=== PATIENT | female | born 1985 | race Caucasian/White ===

== ENCOUNTER 2018-09-02 09:37 | Emergency (ER) | payer MEDICAID, SELFPAY ==
[2018-09-02 09:44] VITALS: BP 111/67; PULSE 89; RESP 18; TEMP 36.8; O2SAT 99
--- NOTE | 2018-09-02 10:17 | DI.RAD_ITS ---
SYMPTOMS/DIAGNOSIS: S/P TWISTING LT KNEE, ? FRACTURE/EFFUSION LEFT KNEE: No soft tissue, bony or joint abnormality is seen.
--- NOTE | 2018-09-02 10:18 | ED.GENADUL_ITS ---
Discharge Plan Disposition Patient Disposition: HOME Condition: Stable Discharge Details Chief Complaint: Orthopedic Clinical Impression: Left knee sprain Primary Care Provider: Kita Clark ED Provider: Layne Aguilar Home Meds and New Rx's Prescriptions: Continue topiramate [Topamax] 50 MG tablet 50 mg PO BID RF: 0 multivit with min-folic acid [Women's Multivitamin Gummies] 200 MCG tablet, chewable 1 tab PO DAILY RF: 0 acetaminophen [Acetaminophen Extra Strength] 500 MG tablet 1,000 mg PO TID PRN PRNQty: 180 RF: 0 diazepam 5 MG tablet 5 mg PO TID PRN PRNQty: 20 RF: 0 [id number]-xbdyienmc-Jh-mag-sim 119 ML mouthwash 10 ml Mucous Membrane Q6H PRN PRN (Reason: Pain) Qty: 1 RF: 0 albuterol sulfate [ProAir HFA] 8.5 GM HFA aerosol inhaler 2 puff Inhalation Q6H PRN PRNRF: 0 Discharge Instructions Instructions: Knee Sprain (ED) Additional Instructions: Rest, ice, elevate left lower extremity is much as possible. Continue to alternate Tylenol and Motrin as needed and directed for pain. Follow-up with your scheduled appointment with Dr. Ye next week. Return to the emergency department any worsening or new concerning symptoms. Discharge Data Discharge Physician: Layne Aguilar Medical Decision Making 33-year-old female presents with left knee pain times 1 week after twisting it while walking down a few stairs. Denies direct trauma to knee. Denies hip pain. Has been ambulating but with pain. Vitals within normal limits. Patient appears nontoxic and in no acute distress. Pain with range of motion of knee, but no ligamentous instability, evidence of trauma or infection. Neurovascular intact. Left DP/PT pulses intact. No pain with range of motion at left hip. Differential diagnosis includes left knee sprain, effusion, fracture. Patient states she has an appoint with Dr. Ye on September 11 for this complaint. She states she discussed with him and he recommended to come to the ER for an x- ray if she desired earlier evaluation. Patient declines pain medication here. She is agreeable to a left knee x-ray. 1110: X-ray reviewed with radiologist and no acute findings. Patient requests Calvin wrap here. She was instructed to rest, ice, elevate and apply ice. She was informed that it is not unusual to have continued pain with a sprain due to inability to rest is still ambulating and weightbearing on left lower extremity. It was discussed that if her pain persists or worsens, she may be referred for physical therapy or an MRI of her knee. She is instructed to follow-up with her scheduled appointment with Dr. Ye next week and return here if worse. HPI General Mode of arrival: ambulatory . Date/Time Provider Initiated Documentation: 09/02/18 10:04 . Limitations to Documentation: no limitations . Information obtained by: patient . HPI Narrative: Patient is a 33 year old female presents with left knee pain for the past week after twisted knee and bent sideways when she had a mechanical fall down a few stairs 1 week ago. Patient admits to pain in the whole left knee. She has been weightbearing but with pain. She has been alternating Tylenol Motrin and applying ice. She denies any hip pain. Past medical history: Migraine Surgical history: Tubal ligation Social history: Smokes tobacco, occasional alcohol, denies drugs Medications: See list Allergies: Penicillin, hydrocodone PCP: Dr. Clark LMP: 08/10/18, denies known - h/o tubal ligation Related Data Home Medications Medication Instructions Recorded Confirmed albuterol sulfate [ProAir HFA] 2 puff INHALATION Q6H PRN PRN 09/30/16 12/23/17 topiramate [Topamax] 50 mg PO BID 12/03/16 12/23/17 multivit with min-folic acid 1 tab PO DAILY 02/05/17 12/23/17 [Women's Multivitamin Gummies] acetaminophen [Acetaminophen Extra 1,000 mg PO TID PRN PRN #180 tablet 02/13/17 12/23/17 Strength] diazepam 5 mg PO TID PRN PRN #20 tablet 02/13/17 12/23/17 kyrpnaspg-fndugafxe-Vf-mag-sim 10 ml MUCOUS MEMBRANE Q6H PRN PRN 12/23/17 #1 btl Previous Rx's Medication Instructions Recorded acetaminophen [Acetaminophen Extra 1,000 mg PO TID PRN PRN #180 tablet 02/13/17 Strength] diazepam 5 mg PO TID PRN PRN #20 tablet 02/13/17 vjtovjnuw-iwwtehmhf-Wu-mag-sim 10 ml MUCOUS MEMBRANE Q6H PRN PRN 12/23/17 #1 btl Allergies Allergy/AdvReac Type Severity Reaction Status Date / Time amoxicillin [Amoxicillin] Allergy Severe facial Unverified 12/23/17 12:24 swelling hydrocodone bitartrate AdvReac Severe Nausea, Unverified 12/23/17 12:24 [From Vicodin] vomiting General Stated Complaint: Orthopedic WADE: 4 Review of Systems Review of Systems All systems reviewed & are unremarkable except as noted in HPI and below PFSH Social History Smoking/Tobacco Use Status: Current every day Surgical History Ligation of fallopian tube Exam Const General: cooperative, healthy appearing and no acute distress HENMT Head: normal to inspection Mouth: oral mucosae normal Eyes General: appearance normal, both eyes and all related structures Neck Neck: normal visual inspection Resp Effort & Inspection: normal respiratory effort and able to speak in complete sentences Cardio Rate: regular rate Skin General skin exam: no rashes or lesions noted Neuro General: alert, awake and oriented x3 Motor: muscle tone normal throughout Extrem General: normal to inspection and full ROM Left lower extremity: hip/thigh (No pain with range of motion. No tenderness palpation.) and knee (Pain with range of motion. There is no edema, ecchymosis , erythema. No pain with valgus or varus stress. Negative anterior posterior drawer test. Negative Shamir's test. ) Details: no crepitus, no deformity and no unusual warmth Psych Appearance: grossly normal Affect: normal affect Course Vital Signs Temperature 98.2 F 09/02/18 09:44 Pulse 89 09/02/18 09:44 Respiratory Rate 18 09/02/18 09:44 Blood Pressure 111/67 09/02/18 09:44 Pulse Oximetry 99 09/02/18 09:44 Temperature 98.2 F 09/02/18 09:44 Pulse 89 09/02/18 09:44 Respiratory Rate 18 09/02/18 09:44 Respiratory Effort 09/02/18 09:47 Blood Pressure 111/67 09/02/18 09:44 Blood Pressure Position Sitting 09/02/18 09:44 Pulse Oximetry 99 09/02/18 09:44 Oxygen Delivery Method Room Air 09/02/18 09:44 Oxygen Flow Rate 0 09/02/18 09:44 Pain Level 8 09/02/18 09:47
[2018-09-02 11:34] VITALS: BP 112/80; PULSE 80; RESP 18; TEMP 36.8; O2SAT 99
--- NOTE | 2018-09-02 19:09 | NUR.NOTE ---
pt declined to have elder wrap placed by nurse- instructed on use and sent home with patient per Lorenzo Downing RN. Nursing Note:
== END 2018-09-02 11:35 | disposition home or self-care (01) ==
PROVIDERS: Emergency Provider Physician Assistant; PCP Family Medicine
DX: S83.92XA Sprain of unspecified site of left knee, initial encounter (principal); W10.8XXA Fall (on) (from) other stairs and steps, initial encounter
CPT/HCPCS: 99283; 73564; 99282

== ENCOUNTER 2018-10-05 10:01 | Outpatient (CLI) | payer MEDICAID, SELFPAY ==
--- NOTE | 2018-10-05 09:33 | DI.RAD_ITS ---
SYMPTOM/DIAGNOSIS: LT DEEP PATELLA PAIN MERCHANT VIEWS BOTH KNEES: Comparison is made with left knee dated 02 Sep 2018 which included Merchant view. Patella femoral joint spaces are well maintained bilaterally. The patella appear normally aligned bilaterally.
== END 2018-10-05 10:21 ==
PROVIDERS: PCP Family Medicine; Visit Provider Student in an Organized Health Care Education/Training Program
DX: M25.562 Pain in left knee (principal)
CPT/HCPCS: 73565

== ENCOUNTER 2019-02-26 01:31 | Outpatient (CLI) | payer MEDICAID, SELFPAY ==
--- NOTE | 2019-02-26 11:41 | DI.MRI_ITS ---
SYMPTOMS/DIAGNOSIS: LEFT INTERNAL DERANGEMENT, M25.92, PAIN X 1 YEAR, CLICKS LEFT KNEE MRI: MRI examination of the knee was performed according to the usual protocol. There is abnormal signal in the central portion of the distal femur consistent with a bony trabecular injury. There is abnormal signal in the anterior cruciate ligament; however, there appears to be continuity of multiple intact fibers throughout the ligament. The posterior cruciate appears normal. The menisci appear intact. Extensor mechanism appears intact. No significant collateral ligament injury is seen. CONCLUSION: Abnormal signal in anterior cruciate ligament without evidence of a complete tear. The findings may represent a partial tear or strain of the ligament. There is associated abnormal signal in the central portion of the distal femur.
== END 2019-02-26 01:51 ==
PROVIDERS: PCP Family Medicine; Visit Provider Student in an Organized Health Care Education/Training Program
DX: M25.562 Pain in left knee (principal); M23.92 Unspecified internal derangement of left knee; S83.512A Sprain of anterior cruciate ligament of left knee, initial encounter
CPT/HCPCS: 73721

== ENCOUNTER 2019-06-14 15:22 | Outpatient (CLI) | payer MEDICAID, SELFPAY ==
--- NOTE | 2019-06-14 15:01 | DI.RAD_ITS ---
SYMPTOMS/DIAGNOSIS: LEFT KNEE PAIN LEFT KNEE: Three views were obtained. No bony abnormality seen.
== END 2019-06-14 15:42 ==
PROVIDERS: PCP Family Medicine; Visit Provider Student in an Organized Health Care Education/Training Program
DX: M25.562 Pain in left knee (principal)
CPT/HCPCS: 73562

== ENCOUNTER 2019-06-18 07:51 | Outpatient (CLI) | payer MEDICAID, SELFPAY ==
--- NOTE | 2019-06-18 09:52 | DI.NM_ITS ---
SYMPTOMS/DIAGNOSIS: PERSISTENT DEEP KNEE PAIN, UNSPECIFIED INJURY, UNSPECIFIED DISORDER OF BONE, M25.562, T14.90XA, M89.9 THREE-PHASE BONE SCAN: The patient received 24.3 mCi of technetium 99m MDP and whole body imaging was performed. Comparison MRI is 02/26/19, comparison x-ray is 06/14/19. There is normal radiotracer uptake in the kidneys and urinary bladder. No significant abnormal uptake is seen in the axial or appendicular skeleton. There is normal and symmetric radiotracer uptake on the all three phases in the knees bilaterally. IMPRESSION: Negative examination.
== END 2019-06-18 08:11 ==
PROVIDERS: PCP Family Medicine; Visit Provider Student in an Organized Health Care Education/Training Program
DX: M25.562 Pain in left knee (principal); M89.9 Disorder of bone, unspecified; T14.90XA Injury, unspecified, initial encounter
CPT/HCPCS: 78315

== ENCOUNTER 2019-07-05 11:25 | Outpatient (REF) | payer MEDICAID, SELFPAY ==
--- NOTE | 2019-07-05 10:45 | PAPFT_PTH ---
PATIENT: Arron Chester LOC: [facility] U#:[id number] AGE/SX: 34/F ROOM: RE07/05/[address]: Kita Clark : 1985 BED: DIS: 07/05/2019 SPEC #: [id number] RECD: 07/05/19 18:27 STATUS: KEVIN REQ #: [id number] DANTE: 07/05/19 10:[address]: Kita Clark DEPT: [facility] Cytology RECD BY: Fariha Valdivia Tissues: 1 - CX/ENDOCX FOR PAP SMEARS Procedures: PAP THIN PREP/UVM Screening HPV DNA PROBE Comments: [id number] (CHLAMYDIA/GC)
[2019-07-06 12:59] LABS: Chlamydia Result Negative; GC Result Negative; Specimen Description SEE COMMENTS
== END 2019-07-05 11:45 ==
LOC: NCHCN 11:25
PROVIDERS: PCP Family Medicine; Visit Provider Family Medicine
DX: Z12.4 Encounter for screening for malignant neoplasm of cervix (principal); Z11.51 Encounter for screening for human papillomavirus (HPV); Z11.3 Encounter for screening for infections with a predominantly sexual mode of transmission
CPT/HCPCS: 87491; 87591; 88142; 87624

== ENCOUNTER 2020-08-07 01:31 | Outpatient (CLI) | payer MEDICAID, SELFPAY ==
[2020-08-08 20:30] LABS: COVID-19 RT-PCR Result NEGATIVE (Negative)
== END 2020-08-07 01:51 ==
PROVIDERS: PCP Family Medicine; Visit Provider Podiatrist
DX: Z11.59 Encounter for screening for other viral diseases (principal); Z01.818 Encounter for other preprocedural examination
CPT/HCPCS: U0003

== ENCOUNTER 2020-08-11 07:26 | Day surgery (SDC) | payer MEDICAID, SELFPAY ==
--- NOTE | 2020-08-11 07:12 | HPE_ITS ---
Date of service: 08/11/20 Time of Service: 07:12 History of Present Illness History of Present Illness Chief Complaint: Symptomatic right bunionette deformity Narrative: 35-year-old female with bilateral bunionette deformities right greater than left causing discomfort in shoe gear interfering with daily activities. Nonoperative treatments have failed to provide sufficient relief of symptoms. She is opting for surgical intervention. [facility] Surgical History History of tonsillectomy and adenoidectomy Ligation of fallopian tube Social History Smoking/Tobacco Use Status: Current every day Alcohol Intake: never Drug use: Never Substance use type: does not use Do you feel safe at home: Yes Do you feel safe in your relationship?: Yes Meds Home Medications and Allergies Home Medications Medication Instructions Recorded Confirmed Type topiramate [Topamax] 50 mg PO BID 12/03/16 08/10/20 History Women's Multivitamin Gummies 1 tab PO DAILY 02/05/17 08/10/20 History acetaminophen [Acetaminophen Extra 1,000 mg PO TID PRN PRN #180 tab 02/13/17 08/10/20 Rx Strength] Allergies Allergy/AdvReac Type Severity Reaction Status Date / Time amoxicillin [Amoxicillin] Allergy Severe facial Verified 08/10/20 11:52 swelling cefuroxime [From Ceftin] Allergy Unknown Unverified 08/10/20 13:56 hydrocodone bitartrate AdvReac Severe Nausea, Verified 08/10/20 11:52 [From Vicodin] vomiting Exam Narrative Exam Narrative: Head is normocephalic Eyes PERRLA Hearing adequate Uvula was midline airway looks assessable Heart had regular rate and rhythm I detected no gallops rubs or murmurs Lung méndez were clear Abdomen was nontender bowel sounds appreciated Peripheral pulses are palpable at the ankle 2 out of 4 capillary fill is under 3 seconds to all toes no edema Skin is grossly intact Muscle groups 5 out of 5 bilaterally Skeletal exam is remarkable for bilateral bunionette deformities with overlying bursitis. There is tenderness to direct palpation over the fifth MPJ right greater than left. Medial rotation of the fifth toe is appreciated with lateral protuberance of the fifth metatarsal head. Neurologically grossly intact no deficits appreciated Impression: Bunionette deformity right fifth MPJ with overlying bursitis Imp: Denzel's been brought to the OR for surgical repair right bunionette deformity. Potential risk and complications of surgery have been discussed including the potential for pain, scarring, infection, recurrence of deformity and/or bursitis potentially requiring revisional procedures. All questions have been answered. Informed consents been obtained no promises made to final outcome of surgery. COVID-19 Screening Have you,or household,traveled outside [place] in last 14 days?: Yes Had IN PERSON contact w/suspected or confirmed C-19 person: No
[2020-08-11 07:30] VITALS: BP 120/82; PULSE 81; RESP 16; TEMP 37; O2SAT 100
[2020-08-11] MEDS: Lactated Ringers 1,000 ML 80 ML IV (08:00)
[2020-08-11] MEDS: CLINDAMYCIN 600 MG/50 ML BAG 100 MG IVPB (09:14)
[2020-08-11] MEDS: Bupivacaine 0.5% Pres-Free 30 ML VIAL (09:29)
[2020-08-11] MEDS: Lidocaine 1% Pres-Free 5 ML VIAL (09:30)
[2020-08-11] MEDS: Dexamethasone 4 MG/ML VIAL (09:42)
--- NOTE | 2020-08-11 10:02 | PDOC.DSDIS_ITS ---
Discharge Plan Disposition Patient Disposition: HOME Condition: Good Discharge Details Reason For Visit: correction right bunionette deformity Attending Provider: Colt Flores Primary Care Provider: Kita Clark Home Meds and New Rx's Prescriptions: New hydrocodone-acetaminophen [[place]] 5-325 mg tablet 1 tab PO Q6H PRN (Reason: post op pain) Qty: 7 RF: 0 ibuprofen 600 mg tablet 600 mg PO Q6H PRN (Reason: post op pain and inflamation) Qty: 60 RF: 0 Continued topiramate [Topamax] 50 MG tablet 50 mg PO BID RF: 0 Women's Multivitamin Gummies 200 MCG tablet,chewable 1 tab PO DAILY RF: 0 acetaminophen [Acetaminophen Extra Strength] 500 MG tablet 1,000 mg PO TID PRN PRNQty: 180 RF: 0 Discharge Instructions Activity:: Elevate Remove Dressings/Wound Care:: Do Not Remove Shower/Bathe:: Cover Diet:: Normal Diet Discharge Orders Discharge Orders: Discharge Order (Routine); Ordered 08/11/20 Ordered By: Colt Flores DS: Diagnosis Discharge Diagnosis (1) Ectors mary, right: Status: Acute
--- NOTE | 2020-08-11 10:07 | ROE_ITS ---
Date of service: 08/11/20 Time of Service: 10:07 Operative Note Operative Note DATE OF PROCEDURE: 08/11/20 PRE-OP DIAGNOSIS: Bunionette deformity right foot POST-OP DIAGNOSIS: same PROCEDURE: Partial right fifth metatarsal head resection ANESTHESIA: MAC ESTIMATED BLOOD LOSS: 1 PATHOLOGY: none sent TOURNIQUET TIME: 24 COMPLICATIONS: None Patient was transported to: same day Patient's condition: stable Procedure Description: Denzel was brought to the operative suite placed in the supine position with the right foot was prepped and draped in the usual sterile podiatric fashion. Timeout was performed by protocol. Anesthesia was achieved through IV general and local block of the right fifth ray consisting of 10 cc 50-50 mixture 1% lidocaine plain, 0.5% Marcaine plain. The right foot was exsanguinated well-padded ankle tourniquet inflated 250 mmHg. Attention was directed to the dorsal lateral aspect of the right fifth MPJ where a 3 cm incision was placed lateral parallel to the extensor tendon the incision was deepened in controlled depth fashion hemostasis acquired with electrocautery as needed. Dissection was carried down to the joint capsule. The soft tissue swelling at this level appeared to be a ganglionic mass as opposed to a bursal sac this was removed upon opening of the joint capsule clear gelatinous material consistent with ganglion was appreciated. The fifth metatarsal head was delivered into the wound. Hypertrophy along the lateral aspect of the joint was appreciated with medial rotation of the fifth digit at the MPJ level. With os teotome and mallet the lateral hyperostosis was resected from the fifth metatarsal head from the level of the lateral aspect of the base of the proximal phalanx the joint capsule was repaired with simple interrupted suture 3-0 Vicryl subcutaneous layer repaired with simple interrupted suture of 4-0 Vicryl and the skin was coapted with continuous running suture of 4-0 Monocryl. 4 mg dexamethasone phosphate was infused about the wound. Mastisol half-inch Steri- Strips Xeroform gauze fluff compression dressings were applied. Tourniquet was released with vascularity returning immediately to all toes. Denzel left the OR with sharp and sponge counts correct vital signs stable vascular status intact to be followed by myself next week.
[2020-08-11 10:30] VITALS: BP 128/91; PULSE 83; TEMP 36.1; O2SAT 100
== END 2020-08-11 10:44 | disposition home or self-care (01) ==
PROVIDERS: PCP Family Medicine; Visit Provider Podiatrist
PROC: (CPT 28292; principal; 2020-08-11 09:00)
DX: M21.621 Bunionette of right foot (principal)
CPT/HCPCS: 28110; 99236; E0114; J1100; J1885; J2001; J2704

== ENCOUNTER 2021-01-17 09:17 | Outpatient (REF) | payer MEDICAID, SELFPAY ==
[2021-01-17 15:54] LABS: Bilirubin Negative (Negative); Blood Trace-intact (Negative); Clarity Cloudy (Clear); Glucose Negative (Negative); Ketones Negative (Negative); Leukocyte Esterase Trace (Negative); Nitrite Positive (Negative); Specific Gravity 1.025 (1.005-1.025); Urobilinogen 0.2 EU/dL (Up TO 0.2)
[2021-01-17 16:04] LABS: Bacteria Many HPF (Negative); C & S Indicated? Yes; Casts Negative LPF (Negative); Crystals Negative HPF (Negative); Epithelial Cells Rare HPF (Negative); Mucus Negative (Negative); Other Cells Negative (Negative); RBC 0-2 HPF (0-2)
== END 2021-01-17 09:18 | disposition home or self-care (01) ==
LOC: NCHCN 09:17
PROVIDERS: PCP Family Medicine; Visit Provider Family Medicine
DX: N39.0 Urinary tract infection, site not specified (principal); R30.0 Dysuria
CPT/HCPCS: 87077; 81003; 81015; 87086; 87186

== ENCOUNTER 2021-04-05 17:08 | Emergency (ER) | payer MEDICAID, SELFPAY ==
[2021-04-05 17:19] VITALS: BP 156/111; PULSE 85; TEMP 37.3; O2SAT 100
[2021-04-05 17:30] LABS: Clarity Cloudy (Clear)
[2021-04-05 17:33] LABS: Specific Gravity 1.018 (1.005-1.025)
[2021-04-05 17:38] LABS: Bacteria Moderate HPF (Negative); C & S Indicated? Yes; Casts Negative LPF (Negative); Crystals Negative HPF (Negative); Epithelial Cells Few HPF (Negative); Mucus Negative (Negative)
[2021-04-05 17:41] LABS: Abs Immature Grans 0.03 10^3/uL (0.0-0.06); Absolute Basophil Count 0.03 10^3/uL (0.0-0.2); Absolute Eosinophil Count 0.06 10^3/uL (0.0-0.7); Absolute Monocyte Count 0.39 10^3/uL (0.1-0.8); Absolute Neutrophil Count 7.51 10^3/uL (1.2-6.7); Basophils % 0.3; Eosinophils % 0.6; HCT 41.3 % (36.0-46.0); HGB 13.7 g/dL (11.2-15.7); Immature Grans % 0.3; MCH 29.8 pg (27.0-33.0); MCHC 33.2 % (32.0-36.0); Monocytes % 3.9; Neutrophils % 74.9; Nucleated RBC 0 %; Platelet Count 362 10^3/uL (130-400); RBC 4.59 10^6/uL (3.93-5.22); RDW 12.5 % (11.7-14.6); RDW-SD 40.7 fL; WBC 10.02 10^3/uL (4.4-10.8)
[2021-04-05] MEDS: Normal Saline 1,000 ML 1000 ML IV (17:55)
[2021-04-05] MEDS: Ondansetron 4 MG/2 ML VIAL IVP (17:56)
[2021-04-05] MEDS: Ketorolac 30 MG/ML VIAL IVP (17:56)
[2021-04-05 18:43] LABS: ALT 22 U/L (14-59); AST 10 U/L (15-37); Alkaline Phosphatase 67 U/L (46-116); Anion Gap 9.4 mmol/L (3-11); BUN 9 mg/dL (7-18); Bilirubin, Total 0.5 mg/dL (0.2-1.0); CO2 26.6 mmol/L (21.0-32.0); CREATININE 0.6 mg/dL (0.55-1.02); Calcium 8.8 mg/dL (8.5-10.1); Chloride 106 mmol/L (98-107); Glucose 94 mg/dL (74-106); Potassium 3.5 mmol/L (3.5-5.1); Sodium 142 mmol/L (136-145); Total Protein 7.5 g/dL (6.4-8.2)
[2021-04-05 18:44] LABS: Lipase 49 U/L (73-393)
--- NOTE | 2021-04-05 18:58 | ED.GENADUL_ITS ---
Discharge Plan Disposition Patient Disposition: HOME Condition: Stable Discharge Details Clinical Impression: UTI (urinary tract infection) Primary Care Provider: Kita Clark ED Provider: Nain Spence Home Meds and New Rx's Prescriptions: New sulfamethoxazole-trimethoprim [Bactrim DS] 800-160 mg tablet 1 tab PO Q12H Qty: 14 RF: 0 phenazopyridine [Pyridium] 200 mg tablet 200 mg PO TID Qty: 6 RF: 0 Continued topiramate [Topamax] 50 MG tablet 50 mg PO BID RF: 0 Women's Multivitamin Gummies 200 MCG tablet,chewable 1 tab PO DAILY RF: 0 acetaminophen [Acetaminophen Extra Strength] 500 MG tablet 1,000 mg PO TID PRN PRNQty: 180 RF: 0 ibuprofen 600 mg tablet 600 mg PO Q6H PRN (Reason: post op pain and inflamation) Qty: 60 RF: 0 Discharge Instructions Instructions: Urinary Tract Infection in Women (ED) Additional Instructions: Bactrim and Pyridium as directed. [id number] medications symptomatic control. Plenty of fluids to avoid dehydration. Please watch for new or worsening symptoms and return to the ER for any concerns. As we discussed, CT imaging would be the study to definitively diagnose renal stones but at this time you have declined. I do recommend reaching out your primary care provider tomorrow to discuss your ER evaluation and need for outpatient reevaluation. Medical Decision Making 36-year-old female with back and abdominal pain over the past 2 days with urinary frequency and feeling of small amounts. She reports fever of 100.2 earlier today but no fever now. Clinically she appears well, nontoxic, no CVA tenderness, afebrile, abdomen is soft, certainly nonsurgical. Clinically I would have a higher suspicion of urinary tract infection over renal stone. Will obtain IV access, give IV fluids, Zofran, Toradol and obtain CBC, CMP, lipase, urinalysis and test. Patient is comfortable with this plan. Patient reports moderate relief of her symptoms with IV fluid and medications Laboratory values reveal a white blood cell count of 10.02 hemoglobin 13.7 hematocrit 41.3 platelet count 362. Electrolytes unremarkable. Creatinine 0.6 the GFR greater than 60. Lipase 49. Urine is orange, cloudy, 3-5 red cells 10- 20 white cells, few epithelial cells, moderate bacteria, culture is indicated. Discussed evaluation and laboratory values with patient. Explained to the patient to fully rule out renal stones I would need to perform a CT of her abdomen pelvis without contrast. At this time because she is feeling better, urine does have 10-20 white cells with moderate bacteria which is certainly consistent with UTI, she defers CT imaging. She does understand that this could be a infected kidney stone which would require different treatment. She assures me that she will return to the ER for new or worsening symptoms over the next couple of days otherwise she will continue with [id number] medications and I will add in a prescription for Bactrim and Pyridium. First dose of Bactrim given here. Patient is comfortable this plan and has no additional questions or concerns. Medical Records Medical records reviewed: Yes I reviewed the patient's medical records. Lab Data Lab results reviewed: Yes I reviewed the patient's lab results. Labs: 04/05/21 17:17 Urine - Reflex from Ua Urine Culture - Pending Laboratory Tests Range/Units 04/05/21 04/05/21 04/05/21 17:17 17:30 17:30 WBC (4.4-10.8) 10^3/uL 10.02 RBC (3.93-5.22) 10^6/uL 4.59 Hgb (11.2-15.7) g/dL 13.7 Hct (36.0-46.0) % 41.3 MCV (80-95) fL 90.0 MCH (27.0-33.0) pg 29.8 MCHC (32.0-36.0) % 33.2 RDW (11.7-14.6) % 12.5 Plt Count (130-400) 10^3/uL 362 MPV (8.0-11.0) fL 9.0 Immature Gran % 0.3 Neutrophils % 74.9 Lymphocytes % 20.0 Monocytes % 3.9 Eosinophils % 0.6 Basophils % 0.3 Nucleated RBC % % 0 Absolute Neutrophils (1.2-6.7) 10^3/uL 7.51 H Absolute Lymphocytes (1.2-3.4) 10^3/uL 2.00 Absolute Monocytes (0.1-0.8) 10^3/uL 0.39 Absolute Eosinophils (0.0-0.7) 10^3/uL 0.06 Absolute Basophils (0.0-0.2) 10^3/uL 0.03 Sodium Cancelled Potassium Cancelled Chloride Cancelled Carbon Dioxide Cancelled Anion Gap Cancelled BUN Cancelled Creatinine Cancelled Estimated GFR/1.73 m2 Cancelled Glucose Cancelled Calcium Cancelled Total Bilirubin Cancelled AST Cancelled ALT Cancelled Alkaline Phosphatase Cancelled Total Protein Cancelled Albumin Cancelled Lipase Cancelled Urine Color (Yellow) [place] Urine Clarity (Clear) Cloudy Urine pH (5-8) Ur Specific [place] (1.005-1.025) 1.018 Urine Protein (Negative) mg/dL Urine Ketones (Negative) mg/dL Urine Blood (Negative) Urine Nitrite (Negative) Urine Bilirubin (Negative) Urine Urobilinogen (Up TO 0.2) EU/dL Ur Leukocyte Esterase (Negative) Urine RBC (0-2) HPF 3-5 H Urine WBC (0-5) HPF 10-20 H Ur Epithelial Cells (Negative) HPF Few Urine Crystals (Negative) HPF Negative Urine Bacteria (Negative) HPF Moderate Urine Casts (Negative) LPF Negative Urine Mucus (Negative) Negative Ur Culture Indicated? Yes Urine Glucose (Negative) mg/dL Range/Units 04/05/21 18:10 WBC (4.4-10.8) 10^3/uL RBC (3.93-5.22) 10^6/uL Hgb (11.2-15.7) g/dL Hct (36.0-46.0) % MCV (80-95) fL MCH (27.0-33.0) pg MCHC (32.0-36.0) % RDW (11.7-14.6) % Plt Count (130-400) 10^3/uL MPV (8.0-11.0) fL Immature Gran % Neutrophils % Lymphocytes % Monocytes % Eosinophils % Basophils % Nucleated RBC % % Absolute Neutrophils (1.2-6.7) 10^3/uL Absolute Lymphocytes (1.2-3.4) 10^3/uL Absolute Monocytes (0.1-0.8) 10^3/uL Absolute Eosinophils (0.0-0.7) 10^3/uL Absolute Basophils (0.0-0.2) 10^3/uL Sodium 142 Potassium 3.5 Chloride 106 Carbon Dioxide 26.6 Anion Gap 9.4 BUN 9 Creatinine 0.6 Estimated GFR/1.73 m2 >= 60.00 Glucose 94 Calcium 8.8 Total Bilirubin 0.5 AST 10 L ALT 22 Alkaline Phosphatase 67 Total Protein 7.5 Albumin 4.0 Lipase 49 Urine Color (Yellow) Urine Clarity (Clear) Urine pH (5-8) Ur Specific [place] (1.005-1.025) Urine Protein (Negative) mg/dL Urine Ketones (Negative) mg/dL Urine Blood (Negative) Urine Nitrite (Negative) Urine Bilirubin (Negative) Urine Urobilinogen (Up TO 0.2) EU/dL Ur Leukocyte Esterase (Negative) Urine RBC (0-2) HPF Urine WBC (0-5) HPF Ur Epithelial Cells (Negative) HPF Urine Crystals (Negative) HPF Urine Bacteria (Negative) HPF Urine Casts (Negative) LPF Urine Mucus (Negative) Ur Culture Indicated? Urine Glucose (Negative) mg/dL HPI General Mode of arrival: ambulatory . Date/Time Provider Initiated Documentation: 04/05/21 17:29 . Limitations to Documentation: no limitations . Information obtained by: patient . HPI Narrative: This is a 36-year-old female, denies significant past medical history, presenting to the ER with chief complaint concerned for UTI or kidney stone. She states that for 2 days she has had diffuse lower back pain that wraps around both sides and has lower abdominal pressure and spasms. She reports urinary frequency and small amounts she reports fever earlier today of 100.2. She reports mild nausea from the pain but denies fever, chest pain, shortness of breath, vomiting, radiation of pain down her legs, hematuria, vaginal bleeding or discharge. She reports the pain is moderate, has taken Motrin and Azo without significant relief. Patient states that she was seen at her primary care clinic, told that there was blood in her urine and sent to the ER for further evaluation. Related Data Home Medications Medication Instructions Recorded Confirmed topiramate [Topamax] 50 mg PO BID 12/03/16 04/05/21 Women's Multivitamin Gummies 1 tab PO DAILY 02/05/17 04/05/21 acetaminophen [Acetaminophen Extra 1,000 mg PO TID PRN PRN #180 tab 02/13/17 04/05/21 Strength] ibuprofen 600 mg PO Q6H PRN #60 tab 08/11/20 04/05/21 phenazopyridine [Pyridium] 200 mg PO TID #6 tab 04/05/21 sulfamethoxazole-trimethoprim 1 tab PO Q12H #14 tab 04/05/21 [Bactrim DS] Previous Rx's Medication Instructions Recorded acetaminophen [Acetaminophen Extra 1,000 mg PO TID PRN PRN #180 tab 02/13/17 Strength] ibuprofen 600 mg PO Q6H PRN #60 tab 08/11/20 phenazopyridine [Pyridium] 200 mg PO TID #6 tab 04/05/21 sulfamethoxazole-trimethoprim 1 tab PO Q12H #14 tab 04/05/21 [Bactrim DS] Allergies Allergy/AdvReac Type Severity Reaction Status Date / Time amoxicillin [Amoxicillin] Allergy Severe facial Verified 04/05/21 17:23 swelling cefuroxime [From Ceftin] Allergy Unknown Unverified 04/05/21 17:23 hydrocodone bitartrate AdvReac Severe Nausea, Verified 04/05/21 17:23 [From Vicodin] vomiting General Stated Complaint: FlankPain WADE: 3 Review of Systems Constitutional Constitutional: Denies chills, Denies fatigue and Reports fever(s) Cardiovascular Cardiovascular: Denies chest pain Gastrointestinal Gastrointestinal: Reports abdominal pain, Denies constipation, Denies diarrhea, Reports nausea and Denies vomiting Genitourinary Genitourinary: Denies abnormal vaginal bleeding, Denies dysuria, Denies pelvic pain, Reports urinary urgency and Denies vaginal discharge Musculoskeletal Musculoskeletal: Reports back pain Integumentary/Breasts Skin/Breast: Denies rash Endocrine Endocrine: Denies fatigue [facility] Surgical History History of tonsillectomy and adenoidectomy Ligation of fallopian tube Social History Smoking/Tobacco Use Status: Current every day Tobacco Type: cigarettes Smoking risk assessment performed?: Yes Alcohol Intake: never Drug use: Never Substance use type: does not use Do you feel safe at home: Yes Do you feel safe in your relationship?: Yes Exam Const General: cooperative, healthy appearing, comfortable and no acute distress Orientation: alert, awake and oriented x3 HENMT Head: normal to inspection, normocephalic and atraumatic Face and sinus: normal facial exam Mouth: moist mucous membranes Eyes General: appearance normal, both eyes and all related structures Conjunctivae: conjunctivae normal Neck Neck: normal visual inspection, trachea midline and supple Resp Effort & Inspection: normal respiratory effort and able to speak in complete sentences Auscultation: clear to auscultation bilaterally Cardio Rate: regular rate Rhythm: regular rhythm GI Inspection: normal to inspection Palpation: soft, not firm, no guarding, no pulsatile masses and tender (Diffuse mild lower, worse in the suprapubic region) not at McBurney's point and with no rebound tenderness Auscultation: normal bowel sounds Back/Spine/Pelvis Back: no CVA tenderness and back tenderness (Diffuse mild lumbar region, no bony point tenderness) Skin General skin exam: no rashes or lesions noted Neuro General: patient alert, patient awake, moves all extremities and no focal motor deficits Cognition: normal cognition Speech: speech normal Gait: normal gait Sensory Exam: no sensory deficits noted Psych Appearance: grossly normal Mental Status: mental status grossly normal Course Vital Signs Vital signs: Vital Signs Temperature 37.3 C 04/05/21 17:19 Pulse 85 04/05/21 17:19 Blood Pressure 156/111 H 04/05/21 17:19 Pulse Oximetry 100 04/05/21 17:19 Temperature 37.3 C 04/05/21 17:19 Pulse 85 04/05/21 17:19 Respiratory Effort Non-Labored 04/05/21 17:21 Blood Pressure 156/111 H 04/05/21 17:19 Blood Pressure Position Sitting 04/05/21 17:19 Pulse Oximetry 100 04/05/21 17:19 Oxygen Delivery Method Room Air 04/05/21 17:19 Oxygen Flow Rate 0 04/05/21 17:19 Pain Level 8 04/05/21 17:56 Lab/Test Results Lab/Test Results: 04/05/21 17:17 Urine - Reflex from Ua Urine Culture - Pending Laboratory Tests Range/Units 04/05/21 04/05/21 04/05/21 17:17 17:30 17:30 WBC (4.4-10.8) 10^3/uL 10.02 RBC (3.93-5.22) 10^6/uL 4.59 Hgb (11.2-15.7) g/dL 13.7 Hct (36.0-46.0) % 41.3 MCV (80-95) fL 90.0 MCH (27.0-33.0) pg 29.8 MCHC (32.0-36.0) % 33.2 RDW (11.7-14.6) % 12.5 Plt Count (130-400) 10^3/uL 362 MPV (8.0-11.0) fL 9.0 Immature Gran % 0.3 Neutrophils % 74.9 Lymphocytes % 20.0 Monocytes % 3.9 Eosinophils % 0.6 Basophils % 0.3 Nucleated RBC % % 0 Absolute Neutrophils (1.2-6.7) 10^3/uL 7.51 H Absolute Lymphocytes (1.2-3.4) 10^3/uL 2.00 Absolute Monocytes (0.1-0.8) 10^3/uL 0.39 Absolute Eosinophils (0.0-0.7) 10^3/uL 0.06 Absolute Basophils (0.0-0.2) 10^3/uL 0.03 Sodium Cancelled Potassium Cancelled Chloride Cancelled Carbon Dioxide Cancelled Anion Gap Cancelled BUN Cancelled Creatinine Cancelled Estimated GFR/1.73 m2 Cancelled Glucose Cancelled Calcium Cancelled Total Bilirubin Cancelled AST Cancelled ALT Cancelled Alkaline Phosphatase Cancelled Total Protein Cancelled Albumin Cancelled Lipase Cancelled Urine Color (Yellow) [place] Urine Clarity (Clear) Cloudy Urine pH (5-8) Ur Specific [place] (1.005-1.025) 1.018 Urine Protein (Negative) mg/dL Urine Ketones (Negative) mg/dL Urine Blood (Negative) Urine Nitrite (Negative) Urine Bilirubin (Negative) Urine Urobilinogen (Up TO 0.2) EU/dL Ur Leukocyte Esterase (Negative) Urine RBC (0-2) HPF 3-5 H Urine WBC (0-5) HPF 10-20 H Ur Epithelial Cells (Negative) HPF Few Urine Crystals (Negative) HPF Negative Urine Bacteria (Negative) HPF Moderate Urine Casts (Negative) LPF Negative Urine Mucus (Negative) Negative Ur Culture Indicated? Yes Urine Glucose (Negative) mg/dL Range/Units 04/05/21 18:10 WBC (4.4-10.8) 10^3/uL RBC (3.93-5.22) 10^6/uL Hgb (11.2-15.7) g/dL Hct (36.0-46.0) % MCV (80-95) fL MCH (27.0-33.0) pg MCHC (32.0-36.0) % RDW (11.7-14.6) % Plt Count (130-400) 10^3/uL MPV (8.0-11.0) fL Immature Gran % Neutrophils % Lymphocytes % Monocytes % Eosinophils % Basophils % Nucleated RBC % % Absolute Neutrophils (1.2-6.7) 10^3/uL Absolute Lymphocytes (1.2-3.4) 10^3/uL Absolute Monocytes (0.1-0.8) 10^3/uL Absolute Eosinophils (0.0-0.7) 10^3/uL Absolute Basophils (0.0-0.2) 10^3/uL Sodium 142 Potassium 3.5 Chloride 106 Carbon Dioxide 26.6 Anion Gap 9.4 BUN 9 Creatinine 0.6 Estimated GFR/1.73 m2 >= 60.00 Glucose 94 Calcium 8.8 Total Bilirubin 0.5 AST 10 L ALT 22 Alkaline Phosphatase 67 Total Protein 7.5 Albumin 4.0 Lipase 49 Urine Color (Yellow) Urine Clarity (Clear) Urine pH (5-8) Ur Specific [place] (1.005-1.025) Urine Protein (Negative) mg/dL Urine Ketones (Negative) mg/dL Urine Blood (Negative) Urine Nitrite (Negative) Urine Bilirubin (Negative) Urine Urobilinogen (Up TO 0.2) EU/dL Ur Leukocyte Esterase (Negative) Urine RBC (0-2) HPF Urine WBC (0-5) HPF Ur Epithelial Cells (Negative) HPF Urine Crystals (Negative) HPF Urine Bacteria (Negative) HPF Urine Casts (Negative) LPF Urine Mucus (Negative) Ur Culture Indicated? Urine Glucose (Negative) mg/dL POC- Test(urine) Negative
[2021-04-05] MEDS: Sulfameth/Trimeth DS TAB 1 TAB PO (19:07)
[2021-04-05 19:09] VITALS: BP 136/97; PULSE 74; RESP 16; TEMP 37.1; O2SAT 100
[2021-04-05 19:12] VITALS: BP 136/97; PULSE 74; RESP 16; TEMP 37.1; O2SAT 100
== END 2021-04-05 19:20 | disposition home or self-care (01) ==
PROVIDERS: Emergency Provider Physician Assistant; PCP Family Medicine
DX: N39.0 Urinary tract infection, site not specified (principal)
CPT/HCPCS: 36415; 80053; 81025; 83690; 96361; 96374; 96375; 99284; 81003; 81015; 85025; 87086; 99283; J1885; J2405

== ENCOUNTER 2021-04-05 19:36 | Outpatient (REF) | payer MEDICAID, SELFPAY ==
[2021-04-05 19:59] LABS: Clarity Cloudy (Clear)
[2021-04-05 20:03] LABS: Specific Gravity 1.019 (1.005-1.025)
[2021-04-05 20:05] LABS: Bacteria Moderate HPF (Negative); C & S Indicated? Yes; Casts Negative LPF (Negative); Crystals Negative HPF (Negative); Epithelial Cells Few HPF (Negative); Mucus Negative (Negative)
== END 2021-04-05 19:37 | disposition home or self-care (01) ==
LOC: NCHCN 19:36
PROVIDERS: PCP Family Medicine; Visit Provider Nurse Practitioner Family
DX: R35.0 Frequency of micturition (principal)
CPT/HCPCS: 87077; 81003; 81015; 87086; 87186

== ENCOUNTER 2021-08-21 09:47 | Emergency (ER) | payer MEDICAID, SELFPAY ==
[2021-08-21 09:51] VITALS: BP 126/95; PULSE 88; RESP 18; TEMP 36.8; O2SAT 100
--- NOTE | 2021-08-21 10:00 | DI.CT_ITS ---
Exam(s) CT BRAIN CTA EXAM: CT BRAIN CTA CLINICAL HISTORY: Right frontal WADE, Memory loss. TECHNIQUE: Imaging Protocol: Axial CT angiography was performed with multi-slice acquisition and mu lti-planar and/or 3D reconstructions. CONTRAST MATERIAL: Intravenous: Omnipaque 350 Contrast volume:85 ml COMPARISON: CT HEAD AND CSPINE W/O CONTRAST from 09/11/2013 CT HEAD AND CSPINE W/O CONTRAST from 09/11/2013 CT ABD PELVIS WO CONTRAST from 08/22/2015 FINDINGS: CT Head W/O: Ventricles and Extra axial spaces: Normal in size and morphology for the patient's age. Hemorrhage: None. Cerebral parenchyma: Normal. Midline shift: None. Brainstem/Cerebellum: Normal. Calvarium: Normal. Visualized Paranasal sinuses/Mastoids: Minimal mucous retention maxillary sinuses. Soft Tissues: Unremarkable. CTA Brain W: Internal Carotid Arteries: Petrous: Normal. Cavernous: Normal. Cerebral: Normal. Middle Cerebral Arteries: Right: No aneurysm, occlusion or significant stenosis. Left: No aneurysm, occlusion or significant stenosis. Anterior Cerebral Arteries: Right: No aneurysm, occlusion or significant stenosis. Left: No aneurysm, occlusion or significant stenosis. Posterior cerebral Arteries: Right: No aneurysm, occlusion or significant stenosis. Left: No aneurysm, occlusion or significant stenosis. Vertebral Arteries: Right: No aneurysm, occlusion or significant stenosis. Left: No aneurysm, occlusion or significant stenosis. Basilar Artery: No aneurysm, occlusion or significant stenosis. IMPRESSION: 1. Normal CTA examination of the [place]. 2. Unremarkable noncontrast CT Head. RADIATION DOSE DELIVERED: 1,845.67mGy.cm Total DLP 1,845.67mGy.cm Total DLP DATA REPOSITORY: All CT scans at this facility are submitted to the National Radiology Data Registry (NRDR) Dose Index Registry (DIR) with the [employer] ([employer]). RADIATION OPTIMIZATION: All CT scans at this facility use at least one of these dose optimization te chniques: automated exposure control; mA and/or kV adjustment per patient size (includes targeted exa ms where dose is matched to clinical indication); or iterative reconstruction.
--- NOTE | 2021-08-21 10:12 | W.ED.GENAD ---
Discharge Plan Disposition Patient Disposition: HOME Condition: Stable Discharge Details Clinical Impression: Frontal headache Primary Care Provider: Kita Clark ED Provider: Ginger Gallegos Home Meds and New Rx's Prescriptions: New dafmrphvjr-iegmhwsfkilnc-ylvu 50-325-40 mg capsule 1 cap PO Q6H PRN (Reason: pain) 7 Days Qty: 7 RF: 0 No Action Women's Multivitamin Gummies 200 MCG tablet,chewable 1 tab PO DAILY RF: 0 acetaminophen [Acetaminophen Extra Strength] 500 MG tablet 1,000 mg PO TID PRN PRNQty: 180 RF: 0 Discharge Instructions Instructions: General Headache (ED) Additional Instructions: Follow up with primary care provider in 3-5 days. Return to ED sooner if any worsening headache, numbness tingling, worsening confusion, fever, vomiting or concerns. Increase oral fluids. Please take Tylenol or Ibuprofen with food every 4-6 hours as needed for pain and swelling. You may also take Benadryl 1 or 2 tablets every 6-8 hours as needed this may help with nausea and headache. CT of the head is within normal limits. Your symptoms could be caused by sinus headache, tension headache dehydration or hormonal changes. Stand Alone Forms: Work Release Referrals: Kita Clark MD [Primary Care Provider] - 5 days Medical Decision Making 36-year-old female with a history of headaches presents to the ER with chief complaint of right frontal headache which she describes as pressure and constant which began 4 days ago. She states this is lasted longer than any previous headache. She reports that she has had some transient mild episodic memory loss first last night and then again this morning. She denies any trauma or injuries to her head, denies any fever chills, neck pain, denies any upper respiratory type symptoms including ear pain, runny nose, sore throat or any other associated symptoms. She denies any visual disturbances or sensitivity to light or sound. She was taking topiramate which she is no longer taking for past diagnosis of migraines. She has been taking a gram of Tylenol for the headache. Did not take anything this morning. No focal neuro deficits noted on exam. Labs ordered CBC CMP, urinalysis urine test, CTA brain ordered due to patient's report of memory loss. Differential diagnosis includes but not limited to migraine, tension headache, sinus headache, stress reaction, Tylenol rebound headache, less likely based on exam CVA. CBC shows no leukocytosis, CMP largely within normal limits urinalysis also within normal limits. Patient was given normal saline bolus, CT within normal limits. Patient was given 15 mg Toradol IV which improved her symptoms somewhat. Patient declined any medications that will make her sleepy due to her driving. I did discuss taking Benadryl at home as needed. Prescription written for Fioricet discussed use. Discussed red flags and follow-up with PCP. Patient remained hemodynamically stable throughout all day. This text was generated using Access Information Managementation system, please disregard any oddities of phrase or misspellings. HPI General Mode of arrival: ambulatory. Date/Time Provider Initiated Documentation: 08/21/21 09:51. Limitations to Documentation: no limitations. Information obtained by: patient, RN notes reviewed and old records reviewed. HPI Narrative: 36-year-old female with a history of headaches presents to the ER with chief complaint of right frontal headache which she describes as pressure and constant which began 4 days ago. She states this is lasted longer than any previous headache. She reports that she has had some transient mild episodic memory loss first last night and then again this morning. She denies any trauma or injuries to her head, denies any fever chills, neck pain, denies any upper respiratory type symptoms including ear pain, runny nose, sore throat or any other associated symptoms. She denies any visual disturbances or sensitivity to light or sound. She was taking topiramate which she is no longer taking for past diagnosis of migraines. She has been taking a gram of Tylenol for the headache. Did not take anything this morning. No focal neuro deficits noted on exam. Related Data Home Medications Medication Instructions Recorded Confirmed Women's Multivitamin Gummies 1 tab PO DAILY 02/05/17 08/21/21 acetaminophen [Acetaminophen Extra 1,000 mg PO TID PRN PRN #180 tab 02/13/17 08/21/21 Strength] eokxdffrpw-cmiqqkiyziroi-pbbt 1 cap PO Q6H PRN 7 Days #7 cap 08/21/21 Previous Rx's Medication Instructions Recorded acetaminophen [Acetaminophen Extra 1,000 mg PO TID PRN PRN #180 tab 02/13/17 Strength] lqegidroik-navmvxqindytt-wyif 1 cap PO Q6H PRN 7 Days #7 cap 08/21/21 Allergies Allergy/AdvReac Type Severity Reaction Status Date / Time amoxicillin [Amoxicillin] Allergy Severe facial Verified 08/21/21 09:58 swelling cefuroxime [From Ceftin] Allergy Unknown Unverified 08/21/21 09:58 hydrocodone bitartrate AdvReac Severe Nausea, Verified 08/21/21 09:58 [From Vicodin] vomiting General Stated Complaint: Headache WADE: 2 Review of Systems Narrative: Constitutional: Negative for weight loss, alert and oriented, well groomed, normal body habitus, appears comfortable. HEENT: Denies trauma, blurry vision, nasal discharge, sore throat, trouble swallowing. Positive right-sided frontal headache described as pressure. Chest: Denies chest pain, palpitations, irregular rhythm, hypertension. Respiratory: Denies Shortness of breath, cough, hemoptysis. GI: Denies abdominal pain, nausea, vomiting, diarrhea, constipation. : Denies dysuria, hematuria, flank pain, rectal bleeding. Neuro: Denies dizziness, blurry vision, weakness, syncope, or facial numbness. No neck pain. Reports right-sided frontal headache and transient episodic memory loss. Hematologic: Denies easy bruising, intolerance to heat or cold, hair loss. [facility] Surgical History History of tonsillectomy and adenoidectomy Ligation of fallopian tube Social History Smoking/Tobacco Use Status: Former Tobacco Use Smoking risk assessment performed?: Yes Alcohol Intake: never Drug use: Never Substance use type: does not use Do you feel safe at home: Yes Do you feel safe in your relationship?: Yes Exam Narrative Exam Narrative: Constitutional: Alert and oriented x3. Appears stated age. Normal body habitus. Head: Normocephalic, no trauma. Eyes: Pupils PERRL, Red reflex noted, EOM's intact. Eyelids symmetrical without lesions, discharge, or swelling. Visual acuity: Corrected: Bilaterally 20/15, right 20/15, left 20/25 ENT: Bilateral TM's WNL, External ear normal to inspection, no mastoid TTP, swelling, or erythema, Nasal turbinates WNL, no nasal discharge. Normal dentition, Posterior pharynx WNL, no exudate. Chest: RRR, Normal S1, S2, distal pulses intact. Resp: Lungs clear to auscultation bilaterally, no wheezes, rales, or rhonchi. Abdomen: Soft, non-distended, Normoactive bowel sounds all 4 quads. Musculoskeletal: Normal gait, 5/5 strength to all four extremities. Skin: No suspicious rashes or lesions. Capillary refill less than 2 sec. Neurologic: Cranial nerves II-XII intact. Alert and oriented x 3. Motor: No deficits noted. Sensory: Intact bilaterally all 4 extremities. Reflexes: intact bilaterally.. Hematologic/Lymphatic: No ecchymosis, no lymphadenopathy. Course Vital Signs Vital signs: Vital Signs Temperature 36.8 C 08/21/21 09:51 Pulse 88 08/21/21 09:51 Respiratory Rate 18 08/21/21 09:51 Blood Pressure 126/95 H 08/21/21 09:51 Pulse Oximetry 100 08/21/21 09:51 Temperature 36.8 C 08/21/21 09:51 Temperature Source Temporal Artery Scan 08/21/21 09:51 Pulse 88 08/21/21 09:51 Respiratory Rate 18 08/21/21 09:51 Respiratory Effort Non-Labored 08/21/21 09:57 Blood Pressure 126/95 H 08/21/21 09:51 Blood Pressure Position Sitting 08/21/21 09:51 Pulse Oximetry 100 08/21/21 09:51 Oxygen Delivery Method Room Air 08/21/21 09:51 Oxygen Flow Rate 0 08/21/21 09:51 Pain Level 9 08/21/21 09:51
[2021-08-21] MEDS: Normal Saline 1,000 ML 1000 ML IV (10:20)
[2021-08-21 10:21] LABS: Abs Immature Grans 0.01 10^3/uL (0.0-0.06); Absolute Basophil Count 0.03 10^3/uL (0.0-0.2); Absolute Lymphocyte Count 1.45 10^3/uL (1.2-3.4); Absolute Monocyte Count 0.33 10^3/uL (0.1-0.8); Basophils % 0.7; Eosinophils % 2.2; HCT 40.2 % (36.0-46.0); HGB 13.1 g/dL (11.2-15.7); Immature Grans % 0.2; Lymphocytes % 32.1; MCH 29.6 pg (27.0-33.0); MCHC 32.6 % (32.0-36.0); Monocytes % 7.3; Neutrophils % 57.5; Nucleated RBC 0 %; Platelet Count 299 10^3/uL (130-400); RBC 4.42 10^6/uL (3.93-5.22); RDW 12.1 % (11.7-14.6); RDW-SD 40.5 fL; WBC 4.52 10^3/uL (4.4-10.8)
[2021-08-21 10:23] LABS: Bilirubin Negative (Negative); Blood Negative (Negative); Clarity Clear (Clear); Glucose Negative (Negative); Ketones Negative (Negative); Leukocyte Esterase Negative (Negative); Nitrite Negative (Negative); Specific Gravity 1.025 (1.005-1.025); Urobilinogen 0.2 EU/dL (Up TO 0.2)
[2021-08-21 10:32] LABS: ALT 18 U/L (14-59); AST 8 U/L (15-37); Albumin 4.1 g/dL (3.4-5.0); Alkaline Phosphatase 62 U/L (46-116); Anion Gap 6.6 mmol/L (3-11); BUN 14 mg/dL (7-18); Bilirubin, Total 0.5 mg/dL (0.2-1.0); CO2 30.4 mmol/L (21.0-32.0); CREATININE 0.6 mg/dL (0.55-1.02); Calcium 8.8 mg/dL (8.5-10.1); Chloride 106 mmol/L (98-107); Glucose 90 mg/dL (74-106); Potassium 4.1 mmol/L (3.5-5.1); Sodium 143 mmol/L (136-145); Total Protein 7.4 g/dL (6.4-8.2)
[2021-08-21] MEDS: Normal Saline - Diluent 50 ML VIAL IV (11:36)
[2021-08-21] MEDS: Omnipaque 350 MG/ML 100 ML BTL IJ (11:38)
[2021-08-21] MEDS: Ketorolac 15 MG/ML VIAL IVP (12:11)
== END 2021-08-21 12:38 | disposition home or self-care (01) ==
PROVIDERS: Emergency Provider Registered Nurse Emergency; PCP Family Medicine
DX: R51.9 Headache, unspecified (principal); R41.3 Other amnesia
CPT/HCPCS: 36415; 70496; 80053; 81025; 96361; 96374; 99285; 81003; 85025; 99284; J1885; J3490

== ENCOUNTER 2022-01-27 13:11 | Emergency (ER) | payer MEDICAID, SELFPAY ==
[2022-01-27 13:14] VITALS: BP 133/90; PULSE 94; RESP 16; TEMP 37; O2SAT 100
[2022-01-27] MEDS: Ondansetron 4 MG/2 ML VIAL IVP (14:31)
[2022-01-27] MEDS: Normal Saline 1,000 ML 1000 ML IV (14:31)
[2022-01-27] MEDS: Ketorolac 15 MG/ML VIAL IVP (14:31)
[2022-01-27 14:34] LABS: Abs Immature Grans 0.02 10^3/uL (0.0-0.06); Absolute Basophil Count 0.04 10^3/uL (0.0-0.2); Absolute Eosinophil Count 0.05 10^3/uL (0.0-0.7); Absolute Lymphocyte Count 1.73 10^3/uL (1.2-3.4); Absolute Monocyte Count 0.35 10^3/uL (0.1-0.8); Basophils % 0.6; Eosinophils % 0.8; HCT 41.6 % (36.0-46.0); HGB 13.4 g/dL (11.2-15.7); Immature Grans % 0.3; Lymphocytes % 26.3; MCH 29.4 pg (27.0-33.0); MCHC 32.2 % (32.0-36.0); MCV 91.2 fL (80-95); MPV 9.2 fL (8.0-11.0); Monocytes % 5.3; Neutrophils % 66.7; Nucleated RBC 0 %; Platelet Count 323 10^3/uL (130-400); RBC 4.56 10^6/uL (3.93-5.22); RDW 12.3 % (11.7-14.6); RDW-SD 40.7 fL; WBC 6.59 10^3/uL (4.4-10.8)
--- NOTE | 2022-01-27 14:37 | W.ED.GENAD ---
Discharge Plan Disposition Patient Disposition: HOME Condition: Stable Discharge Details Clinical Impression: Acute pelvic inflammatory disease (PID) Primary Care Provider: Kita Clark ED Provider: Fariha Castaneda Home Meds and New Rx's Prescriptions: New doxycycline hyclate 100 mg tablet 100 mg PO BID Qty: 28 0RF metronidazole 500 mg tablet 500 mg PO BID 14 Days Qty: 28 0RF ondansetron HCl 4 mg tablet 4 mg PO DAILY 3 Days Qty: 10 0RF Continued Women's Multivitamin Gummies 200 MCG tablet,chewable 1 tab PO DAILY 0RF acetaminophen [Acetaminophen Extra Strength] 500 MG tablet 1,000 mg PO TID PRN PRNQty: 180 0RF Discharge Instructions Additional Instructions: Take antibiotics as prescribed Follow-up with your PCP this week Take the antibiotic with yogurt daily Zofran as needed for nausea and vomiting Keep yourself hydrated Return earlier should you have fever, chills, inability to take your antibiotic secondary to nausea and vomiting, or with any new or worsening complaints Referrals: Kita Clark MD [Primary Care Provider] - 2 days Discharge Data Discharge Date/Time-TO BE ENTERED AT DEPARTURE: 01/27/22 15:44 Medical Decision Making Patient with retained foreign body, tampon resolved in emergency department Persistent pain with cervical motion tenderness, concern for pelvic inflammatory disease, no evidence of toxic shock syndrome clinically, diagnostic labs within normal limits, patient alert, oriented, with stable vital signs We will treat patient empirically for pelvic inflammatory disease based on clinical exam findings and recent retained foreign body Did prefer to order ultrasound in the emergency department, secondary to lack of availability and preference to avoid CT imaging secondary to radiation exposure, polyp ultrasound was ordered in the outpatient setting Patient had marked improvement after Toradol and Zofran and felt comfortable with discharge home I have low suspicion for tubo-ovarian abscess and clinically very low concern for ovarian torsion so delay in ultrasound imaging is reasonable at this time Patient is treated with Flagyl and doxycycline for suspected pelvic inflammatory disease I also considered adding ceftriaxone, however patient does have significant allergy to both cephalosporins and penicillins I do not feel comfortable ordering this at this time especially considering that patient is sexually active and monogamous and low risk for having sexually transmitted disease based on my assessment I did consult with [facility] from the cyst and he also recommended holding off for STD swabs to return, these are pending at this time and will likely take 48 to 72 hours return Patient is stable at time of reassessment and will follow up closely TEST FIXTURE DESIGNER recommended for follow-up versus primary care follow-up in the close outpatient setting Return precautions discussed and patient expressed understanding Zofran prescribed for home HPI General Date/Time Provider Initiated Documentation: 01/27/22 13:40. HPI Narrative: This 37-year-old female presents with lower abdominal discomfort question of a retained tampon. She states she is been nauseous, vomiting, and diarrhea for the past 4 days. She placed a tampon on Friday night at the end of her menses and forgot that her was in place. She states that she is concerned that it is still in place. She is presenting today secondary to poor standing abdominal pain and feeling tired. She denies any urinary complaints or chance of . She is sexually active and monogamous with her . She denies any vaginal discharge. She has progressed home. Denies any additional complaints at this time. Denies chance of . Related Data Home Medications Medication Instructions Recorded Confirmed multivitamin with minerals-folic 1 tab PO DAILY 02/05/17 01/27/22 acid 200 mcg chewable tablet (Women's Multivitamin Gummies) acetaminophen 500 mg tablet 1,000 mg PO TID PRN PRN #180 tab 02/13/17 01/27/22 (Acetaminophen Extra Strength) doxycycline hyclate 100 mg tablet 100 mg PO BID #28 tab 01/27/22 metronidazole 500 mg tablet 500 mg PO BID 14 Days #28 tab 01/27/22 ondansetron HCl 4 mg tablet 4 mg PO DAILY 3 Days #10 tab 01/27/22 Previous Rx's Medication Instructions Recorded acetaminophen 500 mg tablet 1,000 mg PO TID PRN PRN #180 tab 02/13/17 (Acetaminophen Extra Strength) doxycycline hyclate 100 mg tablet 100 mg PO BID #28 tab 01/27/22 metronidazole 500 mg tablet 500 mg PO BID 14 Days #28 tab 01/27/22 ondansetron HCl 4 mg tablet 4 mg PO DAILY 3 Days #10 tab 01/27/22 Allergies Allergy/AdvReac Type Severity Reaction Status Date / Time amoxicillin [Amoxicillin] Allergy Severe facial Verified 01/27/22 13:19 swelling cefuroxime [From Ceftin] Allergy Unknown Unverified 01/27/22 13:19 hydrocodone bitartrate AdvReac Severe Nausea, Verified 01/27/22 13:19 [From Vicodin] vomiting General Stated Complaint: TEST FIXTURE DESIGNER WADE: 3 Review of Systems All systems reviewed & are unremarkable except as noted in HPI and below PFSH All Active Problems (Updated 01/27/22 @ 14:59 by FLAVIA Keith) Frontal headache (Acute) Acute pelvic inflammatory disease (PID) (Acute) Tailor's bunionette, right (Acute) UTI (urinary tract infection) (Acute) 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) Arthralgia of right acromioclavicular joint (Acute 02/26/17) Right rotator cuff tendinitis (Acute 12/09/16) Patellar tendon strain (Acute) Patellar tendinitis of left knee (Acute) Pain of left knee after injury (Acute) Lesion of left femur (Acute) Surgical History History of tonsillectomy and adenoidectomy Ligation of fallopian tube Social History Smoking/Tobacco Use Status: Former Tobacco Use Smoking risk assessment performed?: Yes Alcohol Intake: current Alcohol Intake frequency: a few times a month Drug use: Never Substance use type: does not use Do you feel safe at home: Yes Do you feel safe in your relationship?: Yes Exam Const General: cooperative, comfortable and no acute distress HENMT Mouth: oral mucosae normal Eyes Pupils: PERRL Resp Effort & Inspection: normal respiratory effort Auscultation: clear to auscultation bilaterally Cardio Rate: regular rate GI Inspection: normal to inspection Percussion: normal to percussion Other: No right lower quadrant tenderness, no rebound or guarding, no CVA tenderness Other: Cervical motion tenderness, no obvious vaginal discharge, tampon in place Skin General skin exam: no rashes or lesions noted Neuro General: patient alert and patient oriented x3 Extrem General: normal to inspection Course Vital Signs Vital signs: Vital Signs Temperature 37 C 01/27/22 13:14 Pulse 94 H 01/27/22 13:14 Respiratory Rate 16 01/27/22 13:14 Blood Pressure 133/90 01/27/22 13:14 Pulse Oximetry 100 01/27/22 13:14 Temperature 37 C 01/27/22 13:14 Temperature Source Skin 01/27/22 13:14 Pulse 94 H 01/27/22 13:14 Respiratory Rate 16 01/27/22 13:14 Respiratory Effort 01/27/22 13:19 Blood Pressure 133/90 01/27/22 13:14 Blood Pressure Position Sitting 01/27/22 13:14 Pulse Oximetry 100 01/27/22 13:14 Oxygen Delivery Method Room Air 01/27/22 13:14 Oxygen Flow Rate 0 01/27/22 13:14 Pain Level 9 01/27/22 13:28 Comment 01/27/22 13:14 Lab/Test Results Lab/Test Results: 01/27/22 14:20 Vaginal Vaginitis Screen - Pending Laboratory Tests Range/Units 01/27/22 14:20 WBC (4.4-10.8) 10^3/uL 6.59 RBC (3.93-5.22) 10^6/uL 4.56 Hgb (11.2-15.7) g/dL 13.4 Hct (36.0-46.0) % 41.6 MCV (80-95) fL 91.2 MCH (27.0-33.0) pg 29.4 MCHC (32.0-36.0) % 32.2 RDW (11.7-14.6) % 12.3 Plt Count (130-400) 10^3/uL 323 MPV (8.0-11.0) fL 9.2 Immature Gran % 0.3 Neutrophils % 66.7 Lymphocytes % 26.3 Monocytes % 5.3 Eosinophils % 0.8 Basophils % 0.6 Nucleated RBC % % 0 Absolute Neutrophils (1.2-6.7) 10^3/uL 4.40 Absolute Lymphocytes (1.2-3.4) 10^3/uL 1.73 Absolute Monocytes (0.1-0.8) 10^3/uL 0.35 Absolute Eosinophils (0.0-0.7) 10^3/uL 0.05 Absolute Basophils (0.0-0.2) 10^3/uL 0.04 PAWSS Have you Been Recently Intoxicated or Drunk Within the Last 30 days?: No Have you Ever Experienced Previous Episodes of Alcohol Withdrawal?: No Have you ever Experienced Withdrawal Seizures?: No Have you ever Experienced Delirium Tremens(DT)s?: No Have you ever undergone Alcohol Rehabilitation Treatment (i.e, inpt ot outpatient treatment programs)?: No Have you ever Experienced Blackouts?: No Have you ever Combined Alcohol with other Downers within the last 90 days?: No Have you ever Combined Alcohol with any other Substance of Abuse during the last 90 days?: No Positive Blood Alcohol level on Presentation? [PCS.BAL]: No Evidence of Increased Autonomic Activity (i.e. HR>120, tremor, sweating, agitation, nausea)?: No Result: 0
[2022-01-27 14:46] LABS: ALT 18 U/L (14-59); AST 10 U/L (15-37); Alkaline Phosphatase 62 U/L (46-116); Anion Gap 7.3 mmol/L (3-11); BUN 10 mg/dL (7-18); Bilirubin, Total 0.3 mg/dL (0.2-1.0); CO2 28.7 mmol/L (21.0-32.0); CREATININE 0.6 mg/dL (0.55-1.02); Calcium 8.5 mg/dL (8.5-10.1); Chloride 105 mmol/L (98-107); Glucose 97 mg/dL (74-106); Lipase 69 U/L (73-393); Potassium 3.4 mmol/L (3.5-5.1); Sodium 141 mmol/L (136-145); Total Protein 7.4 g/dL (6.4-8.2)
[2022-01-27 15:05] LABS: Bilirubin Negative (Negative); Blood Negative (Negative); Clarity Clear (Clear); Glucose Negative (Negative); Ketones Negative (Negative); Leukocyte Esterase Negative (Negative); Nitrite Negative (Negative); Specific Gravity 1.025 (1.005-1.025); Urobilinogen 0.2 EU/dL (Up TO 0.2)
[2022-01-27] MEDS: metroNIDAZOLE 500 MG TAB PO (15:30)
[2022-01-27] MEDS: Doxycycline Hyclate 100 MG CAP PO (15:30)
[2022-01-27 15:31] VITALS: BP 121/89; PULSE 83; RESP 16; TEMP 37.5; O2SAT 98
[2022-01-29 15:13] LABS: Chlamydia Result Negative (Negative); GC Result Negative (Negative)
== END 2022-01-27 15:44 | disposition home or self-care (01) ==
PROVIDERS: Emergency Provider Physician Assistant; PCP Family Medicine
DX: N73.0 Acute parametritis and pelvic cellulitis (principal); T19.2XXA Foreign body in vulva and vagina, initial encounter; X58.XXXA Exposure to other specified factors, initial encounter; R11.2 Nausea with vomiting, unspecified; Z11.3 Encounter for screening for infections with a predominantly sexual mode of transmission
CPT/HCPCS: 80053; 81025; 83690; 87491; 87591; 96361; 96374; 96375; 99284; 81003; 83735; 85025; 87480; 87510; 87660; 99283; J1885; J2405

== ENCOUNTER → 2022-01-30 00:55 | Outpatient (CLI) | payer MEDICAID, SELFPAY ==
--- NOTE | 2022-01-30 | DI.US_ITS ---
Exam(s) US PELVIS EXAM: US PELVIS CLINICAL HISTORY: PELVIC PAIN TECHNIQUE: Ultrasound of the pelvis was performed. PATIENT APPARENTLY DECLINED TRANSVAGINAL STUDY.. COMPARISON: No exams were available for comparison FINDINGS: UTERUS: Anteverted. Measures 9 cm length x 5 cm AP x 6 cm wide. There are no uterine fibroids. Endometrial thickness measures 13 mm. There is a tiny amount of fluid in the upper endometrial canal. CERVIX: There are no obvious nabothian cysts. RIGHT OVARY: Measures 0.8 x 2.5 x 3.8 cm No significant cysts nor masses evident in the right ovary. LEFT OVARY: Measures 0.3 x 1.6 x 3.4 cm No significant cysts nor masses evident in the left ovary. CUL-DE-SAC: No free fluid evident. IMPRESSION: 1. Tiny amount of fluid in the endometrium cavity. 2. Endometrial stripe thickness is 1.3 cm may be related to the stage of the cycle. 3. No abnormal adnexal masses nor fluid. Please note that this study was performed transabdominally, using the urinary bladder is an acoustic window. Patient apparently declined transvaginal study. Discussed with ER provider 01/30/2022 8:52 a.m. DATA REPOSITORY:
== END ==
PROVIDERS: PCP Family Medicine; Visit Provider Physician Assistant
DX: R10.2 Pelvic and perineal pain (principal)
CPT/HCPCS: 76830; 76856

== ENCOUNTER 2022-01-30 08:33 | Emergency (ER) | payer MEDICAID, SELFPAY ==
[2022-01-30 08:37] VITALS: BP 125/98; PULSE 77; RESP 18; TEMP 36.3; O2SAT 100
--- NOTE | 2022-01-30 08:45 | DI.CT_ITS ---
Exam(s) CT ABDOMEN PELVIS W EXAM: CT ABDOMEN PELVIS W CLINICAL HISTORY: lower abdomina pain, and right flank pain. TECHNIQUE: Imaging Protocol: Axial computed tomography images with coronal and sagittal reformatted images were created and reviewed CONTRAST MATERIAL: Intravenous: Omnipaque 100cc Oral: None COMPARISON: CT CT BRAIN CTA from 08/21/2021 FINDINGS: VISUALIZED LUNG BASES: No nodules nor pleural effusions evident. ABDOMEN: There is no ascites. LIVER: There are no focal hepatic lesions evident . GALLBLADDER/BILIARY: No obvious gallbladder pathology. CBD is not dilated. PANCREAS: No evidence of pancreatic mass nor dilatation of the pancreatic duct. SPLEEN: Spleen is not enlarged. No obvious intrasplenic lesions. Splenic and portal veins are paten t. ADRENALS: There are no significant adrenal masses. KIDNEYS:No cysts evident. No solid renal masses. No calculi nor hydronephrosis.. ABDOMINAL AORTA: Abdominal aorta is not enlarged. LYMPH NODES:There is no retroperitoneal nor paraaortic adenopathy. ABDOMINAL WALL: Small fat only containing umbilical hernia. GI: There is no evidence of bowel obstruction, free air, nor abscess. PELVIS: GI: No evidence of obvious appendicitis.No evidence of sigmoid diverticulitis. LYMPH NODES: There is no intrapelvic nor inguinal adenopathy. REPRODUCTIVE: Uterus size normal. Uterus is anteverted. Left ovary unremarkable. Cyst in the right ovary measuring 2.4 x 2.5 cm. No free fluid. URINARY BLADDER: No calculi nor obvious masses evident OSSEOUS: No significant osseous lesions. IMPRESSION: 1. There is a 2.5 x 2.4 cm cyst in the right ovary. No other adnexal findings. No free fluid in the pelvis. 2. No other significant findings in the abdomen and pelvis. 3. No ascites RADIATION DOSE DELIVERED: 908.85mGy.cm Total DLP DATA REPOSITORY: All CT scans at this facility are submitted to the National Radiology Data Registry (NRDR) Dose Index Registry (DIR) with the [employer] ([employer]). RADIATION OPTIMIZATION: All CT scans at this facility use at least one of these dose optimization te chniques: automated exposure control; mA and/or kV adjustment per patient size (includes targeted exa ms where dose is matched to clinical indication); or iterative reconstruction.
--- NOTE | 2022-01-30 09:16 | ED.GENADUL_ITS ---
Discharge Plan Disposition Patient Disposition: HOME Condition: Stable Discharge Details Clinical Impression: Abdominal pain Primary Care Provider: Kita Clark ED Provider: Fariha Castaneda Home Meds and New Rx's Prescriptions: New dicyclomine 10 mg capsule 10 mg PO BID Qty: 10 0RF ondansetron 4 mg tablet,disintegrating 4 mg PO DAILY 3 Days Qty: 10 0RF Continued Women's Multivitamin Gummies 200 MCG tablet,chewable 1 tab PO DAILY 0RF acetaminophen [Acetaminophen Extra Strength] 500 MG tablet 1,000 mg PO TID PRN PRNQty: 180 0RF doxycycline hyclate 100 mg tablet 100 mg PO BID Qty: 28 0RF metronidazole 500 mg tablet 500 mg PO BID 14 Days Qty: 28 0RF Discharge Instructions Instructions: Abdominal Pain (ED) Additional Instructions: Take Zofran as needed for nausea and vomiting Yogurt daily while on antibiotics Take Bentyl as needed cramping Follow-up with your primary care physician in 24 to 48 hours for reassessment Return earlier should you have new or worsening complaints Brat diet bananas, rice, applesauce, toast Take the oxycodone sparingly, this medication is addictive and can make you constipated Stand Alone Forms: Work Release Referrals: Kita Clark MD [Primary Care Provider] - Medical Decision Making Patient had pelvic ultrasound that does not show evidence of acute abnormality CT scan also does not show evidence of acute abnormality, specifically no surgical intervention necessary Patient is resting comfortably in room at time of reassessment, her labs are all within normal limits Results of both CT and pelvic ultrasound were reviewed with the radiologist She is discharged home on Bentyl and several tablets of oxycodone should she need it for pain uncontrolled with ibuprofen and Tylenol She also will need to follow-up with Dr. Russell She will continue her medication for treatment of pelvic inflammatory disease and continued yogurt daily Her STD panel was negative aside from yeast and she is asymptomatic but not any treatment at this time She is given her very low threshold to return should she have new or worsening complaints and discharged home with Zofran as needed for nausea and vomiting Medical Records Medical records reviewed: Yes I reviewed the patient's medical records. Lab Data Lab results reviewed: Yes I reviewed the patient's lab results. ECG Data Prior ECG tracings: available for review HPI General Date/Time Provider Initiated Documentation: 01/30/22 08:44 . HPI Narrative: This 37-year-old female presents for pelvic ultrasound. She was evaluated on 24 abdominal pain and a retained foreign body in her vagina. She presents secondary to persistent abdominal pain that is worsening. It initially was in her lower quadrant but is now in the right flank. She denies prior history of similar symptoms in the past. She has been taking the antibiotics that she was previously prescribed for good pelvic inflammatory disease. She states that she is no longer nauseous at this time but her pain is worsening despite taking antibiotics. She denies any diarrhea. She denies any chest pain or shortness of breath. She states the pain is exacerbated with walking and movement. She had a tubal ligation but denies any additional abdominal surgeries. Denies chance of or urinary symptoms. She has any blood in her stool. Denies any traumatic injury Related Data Home Medications Medication Instructions Recorded Confirmed multivitamin with minerals-folic 1 tab PO DAILY 02/05/17 01/30/22 acid 200 mcg chewable tablet (Women's Multivitamin Gummies) acetaminophen 500 mg tablet 1,000 mg PO TID PRN PRN #180 tab 02/13/17 01/30/22 (Acetaminophen Extra Strength) doxycycline hyclate 100 mg tablet 100 mg PO BID #28 tab 01/27/22 01/30/22 metronidazole 500 mg tablet 500 mg PO BID 14 Days #28 tab 01/27/22 01/30/22 dicyclomine 10 mg capsule 10 mg PO BID #10 cap 01/30/22 ondansetron 4 mg disintegrating 4 mg PO DAILY 3 Days #10 tab 01/30/22 tablet Previous Rx's Medication Instructions Recorded acetaminophen 500 mg tablet 1,000 mg PO TID PRN PRN #180 tab 02/13/17 (Acetaminophen Extra Strength) doxycycline hyclate 100 mg tablet 100 mg PO BID #28 tab 01/27/22 metronidazole 500 mg tablet 500 mg PO BID 14 Days #28 tab 01/27/22 dicyclomine 10 mg capsule 10 mg PO BID #10 cap 01/30/22 ondansetron 4 mg disintegrating 4 mg PO DAILY 3 Days #10 tab 01/30/22 tablet Allergies Allergy/AdvReac Type Severity Reaction Status Date / Time amoxicillin [Amoxicillin] Allergy Severe facial Verified 01/30/22 08:44 swelling cefuroxime [From Ceftin] Allergy Unknown Unverified 01/30/22 08:44 hydrocodone bitartrate AdvReac Severe Nausea, Verified 01/30/22 08:44 [From Vicodin] vomiting General Stated Complaint: Recheck WADE: 5 Review of Systems All systems reviewed & are unremarkable except as noted in HPI and below PFSH All Active Problems (Updated 01/30/22 @ 12:14 by FLAVIA Keith) Frontal headache (Acute) Acute pelvic inflammatory disease (PID) (Acute) Abdominal pain (Acute) Tailor's bunionette, right (Acute) UTI (urinary tract infection) (Acute) 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) Arthralgia of right acromioclavicular joint (Acute 02/26/17) Right rotator cuff tendinitis (Acute 12/09/16) Patellar tendon strain (Acute) Patellar tendinitis of left knee (Acute) Pain of left knee after injury (Acute) Lesion of left femur (Acute) Surgical History History of tonsillectomy and adenoidectomy Ligation of fallopian tube Social History Smoking/Tobacco Use Status: Former Tobacco Use Smoking risk assessment performed?: Yes Alcohol Intake: current Alcohol Intake frequency: a few times a month Drug use: Never Substance use type: does not use Do you feel safe at home: Yes Do you feel safe in your relationship?: Yes Exam Const General: comfortable and no acute distress Eyes Sclera: sclerae normal Resp Effort & Inspection: normal respiratory effort Cardio Rate: regular rate GI Other: Diffuse abdominal tenderness, no rebound or guarding Skin General skin exam: no rashes or lesions noted Neuro General: patient alert and patient oriented x3 Extrem Other: Distal pulses intact Course Vital Signs Vital signs: Vital Signs Temperature 36.3 C L 01/30/22 08:37 Pulse 77 01/30/22 08:37 Respiratory Rate 18 01/30/22 08:37 Blood Pressure 125/98 H 01/30/22 08:37 Pulse Oximetry 100 01/30/22 08:37 Temperature 36.3 C L 01/30/22 08:37 Temperature Source Tympanic 01/30/22 08:37 Pulse 77 01/30/22 08:37 Respiratory Rate 18 01/30/22 08:37 Respiratory Effort Non-Labored 01/30/22 08:43 Blood Pressure 125/98 H 01/30/22 08:37 Blood Pressure Position Sitting 01/30/22 08:37 Pulse Oximetry 100 01/30/22 08:37 Oxygen Delivery Method Room Air 01/30/22 08:37 Oxygen Flow Rate 0 01/30/22 08:37 Pain Level 8 01/30/22 08:37 Lab/Test Results Lab/Test Results: POC- Test(urine) Negative PAWSS Have you Been Recently Intoxicated or Drunk Within the Last 30 days?: No Have you Ever Experienced Previous Episodes of Alcohol Withdrawal?: No Have you ever Experienced Withdrawal Seizures?: No Have you ever Experienced Delirium Tremens(DT)s?: No Have you ever undergone Alcohol Rehabilitation Treatment (i.e, inpt ot outpatient treatment programs)?: No Have you ever Experienced Blackouts?: No Have you ever Combined Alcohol with other Downers within the last 90 days?: No Have you ever Combined Alcohol with any other Substance of Abuse during the last 90 days?: No Positive Blood Alcohol level on Presentation? [PCS.BAL]: No Evidence of Increased Autonomic Activity (i.e. HR>120, tremor, sweating, agitation, nausea)?: No Result: 0
[2022-01-30 09:19] LABS: Bilirubin Negative (Negative); Blood Negative (Negative); Clarity Clear (Clear); Glucose Negative (Negative); Ketones Negative (Negative); Leukocyte Esterase Negative (Negative); Nitrite Negative (Negative); Specific Gravity 1.015 (1.005-1.025); Urobilinogen 0.2 EU/dL (Up TO 0.2)
[2022-01-30] MEDS: Normal Saline 1,000 ML 1000 ML IV (09:28)
[2022-01-30 09:29] LABS: Abs Immature Grans 0.01 10^3/uL (0.0-0.06); Absolute Basophil Count 0.02 10^3/uL (0.0-0.2); Absolute Eosinophil Count 0.06 10^3/uL (0.0-0.7); Absolute Lymphocyte Count 1.61 10^3/uL (1.2-3.4); Absolute Monocyte Count 0.29 10^3/uL (0.1-0.8); Absolute Neutrophil Count 3.51 10^3/uL (1.2-6.7); Basophils % 0.4; Eosinophils % 1.1; HCT 41.1 % (36.0-46.0); HGB 13.5 g/dL (11.2-15.7); Immature Grans % 0.2; Lymphocytes % 29.3; MCH 29.5 pg (27.0-33.0); MCHC 32.8 % (32.0-36.0); MCV 89.9 fL (80-95); Monocytes % 5.3; Neutrophils % 63.7; Nucleated RBC 0 %; Platelet Count 292 10^3/uL (130-400); RBC 4.57 10^6/uL (3.93-5.22); RDW 12.3 % (11.7-14.6); RDW-SD 40.3 fL
[2022-01-30] MEDS: fentaNYL 100 MCG/2 ML VIAL 50 MCG IVP (09:29)
[2022-01-30 09:41] LABS: ALT 21 U/L (14-59); AST 13 U/L (15-37); Albumin 4.1 g/dL (3.4-5.0); Alkaline Phosphatase 62 U/L (46-116); Anion Gap 7.3 mmol/L (3-11); BUN 10 mg/dL (7-18); Bilirubin, Total 0.3 mg/dL (0.2-1.0); CO2 27.7 mmol/L (21.0-32.0); CREATININE 0.6 mg/dL (0.55-1.02); Calcium 8.6 mg/dL (8.5-10.1); Chloride 104 mmol/L (98-107); Glucose 86 mg/dL (74-106); Lipase 68 U/L (73-393); Potassium 3.6 mmol/L (3.5-5.1); Sodium 139 mmol/L (136-145); Total Protein 7.7 g/dL (6.4-8.2)
[2022-01-30 09:44] LABS: C-Reactive Protein < 0.05 mg/dL (0.0-0.3)
[2022-01-30 09:50] VITALS: BP 127/82; PULSE 63; O2SAT 100
[2022-01-30 09:50] LABS: HCG Qual (Serum) Negative
[2022-01-30 12:12] VITALS: BP 132/93; PULSE 65; RESP 16; O2SAT 100
--- NOTE | 2022-01-30 12:17 | NUR.NOTE ---
Nursing Note: PT INFO FAXED TO PCP TO BE SEEN WITHIN A WEEK FOR ABDOMINAL PAIN. SORAIDA, ED
[2022-01-30 12:21] VITALS: TEMP 36.8
== END 2022-01-30 12:30 | disposition home or self-care (01) ==
PROVIDERS: Emergency Provider Physician Assistant; PCP Family Medicine
DX: R10.9 Unspecified abdominal pain (principal)
CPT/HCPCS: 36415; 80053; 81025; 83690; 96361; 96374; 99285; 74177; 81003; 84703; 85025; 86140; 99284; J3010

== ENCOUNTER 2022-03-04 18:40 | Outpatient (REF) | payer MEDICAID, SELFPAY ==
[2022-03-05 11:04] LABS: HCG Qual (Serum) Negative
[2022-03-05 11:09] LABS: HCG Quant, Pregnancy 1 mIU/mL (1-3)
== END 2022-03-04 18:41 | disposition home or self-care (01) ==
LOC: NCHCN 18:40
PROVIDERS: PCP Family Medicine; Visit Provider Family Medicine
DX: N91.1 Secondary amenorrhea (principal); R10.2 Pelvic and perineal pain
CPT/HCPCS: 87491; 87591; 84702; 84703; 87480; 87510; 87660

== ENCOUNTER 2022-04-08 02:20 | Emergency (ER) | payer MEDICAID, SELFPAY ==
[2022-04-08 02:29] VITALS: BP 128/89; PULSE 91; RESP 18; TEMP 37.1; O2SAT 99
--- NOTE | 2022-04-08 03:01 | ED.GENADUL_ITS ---
Discharge Plan Disposition Patient Disposition: STILL A PATIENT Condition: Stable Discharge Details Clinical Impression: Abdominal pain, acute, right lower quadrant Primary Care Provider: Kita Clark ED Provider: Dwayne Mane Medical Decision Making Patient presenting with worsening right lower quadrant abdominal pain with reported fever at home and associated nausea and vomiting. Exam concerning for appendicitis. IV established and fluids started. Patient given morphine and Zofran. Laboratory studies sent and CT scan of abdomen pelvis obtained. Patient's laboratory studies are unremarkable. Her white count is normal. Chemistries and LFTs normal. Lipase normal. Urine negative. CT scan without evidence of appendicitis. Right adnexal cystic structure identified. Patient's pain seems higher but will obtain pelvic ultrasound to rule out torsion or other gynecological problem. Patient continues to have significant pain and has been dosed with ketorolac as well as hydromorphone at this point. She will be signed out to oncoming physician pending pelvic ultrasound. If this does not show significant pathology recommend surgical consult due to the continued severe pain in the right lower quadrant. Lab Data Lab results reviewed: Yes I reviewed the patient's lab results. HPI General Mode of arrival: ambulatory . Date/Time Provider Initiated Documentation: 04/08/22 03:01 . Limitations to Documentation: no limitations . Information obtained by: patient . HPI Narrative: Patient presents to ED with right lower quadrant abdominal pain. Patient reports pain began 1 to 2 days ago as generalized pain. It is now localized mostly to the right lower quadrant. She has to walk hunched over. Pain is better when her knees are pulled up to her abdomen. She had fever at home. She has had nausea and vomiting but no diarrhea. She has no appetite. She denies any urinary symptoms. She is status post tubal ligation but no other abdominal surgeries. She has no back pain. Related Data Allergies Allergy/AdvReac Type Severity Reaction Status Date / Time amoxicillin [Amoxicillin] Allergy Severe facial Verified 04/08/22 02:35 swelling cefuroxime [From Ceftin] Allergy Unknown Unverified 04/08/22 02:35 hydrocodone bitartrate AdvReac Severe Nausea, Verified 04/08/22 02:35 [From Vicodin] vomiting General Stated Complaint: Abd Prob WADE: 3 Review of Systems Narrative: 08/09 Review of Systems completed and is negative except as stated above in HPI (Systems reviewed: Const, Eyes, ENT, Resp, CV, GI, , MSK, Skin, Neuro) PFSH All Active Problems (Updated 04/08/22 @ 08:10 by Dwayne Mane MD) Abdominal pain, acute, right lower quadrant (Acute) Pelvic pain (Acute) Frontal headache (Acute) Tailor's bunionette, right (Acute) UTI (urinary tract infection) (Acute) 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) Arthralgia of right acromioclavicular joint (Acute 02/26/17) Right rotator cuff tendinitis (Acute 12/09/16) Patellar tendon strain (Acute) Patellar tendinitis of left knee (Acute) Pain of left knee after injury (Acute) Lesion of left femur (Acute) Surgical History History of tonsillectomy and adenoidectomy Ligation of fallopian tube Social History Smoking/Tobacco Use Status: Former Tobacco Use Smoking risk assessment performed?: Yes Alcohol Intake: current Alcohol Intake frequency: a few times a month Drug use: Never Substance use type: does not use Do you feel safe at home: Yes Do you feel safe in your relationship?: Yes Female Reproductive History Menstrual control method: permanent sterilization History History 4 Para 4 Hx # Term Pregnancies Multiple births Hx # Pregnancies Ectopic pregnancies AB induced Hx Number of Living Children AB spontaneous Past Pregnancies Del. Date GA/Weeks # Outcome Route Wgt Sex Labor Lgth Anesthes ia Location Prov Complic 08/01/04 40 No Successful vaginal Female [facility] 05/01/07 40 No Successful vaginal Female [facility] 08/16/09 40 No Successful vaginal Male [facility] 06/07/12 40 No Successful vaginal Female [facility] Exam Narrative Exam Narrative: Const: WDWN female in NAD. HEENT: NC/AT. Normal facial exam. Eyes: Normal conjunctiva and sclera. Neck: Supple. Trachea midline. Lungs: Normal respiratory effort. Lungs are clear. Cor: RRR without murmur/gallop. Good radial pulses. GI: Soft. ND. Tender in right lower quadrant with guarding and rebound. Significant pain with heel strike. Back: No CVAT Neuro: A+O x 3. Normal speech, mentation, gait. Cranial nerves II - XII grossly intact. No gross motor or sensory deficit. Ext: No C/C/E. Skin: Warm and dry without rash. Course Vital Signs Vital signs: Vital Signs Temperature 98.8 F 04/08/22 02:29 Pulse 91 H 04/08/22 02:29 Respiratory Rate 18 04/08/22 02:29 Blood Pressure 128/89 04/08/22 02:29 Pulse Oximetry 99 04/08/22 02:29 Temperature 98.8 F 04/08/22 02:29 Temperature Source Temporal Artery Scan 04/08/22 02:29 Pulse 91 H 04/08/22 02:29 Respiratory Rate 18 04/08/22 02:29 Respiratory Effort Non-Labored 04/08/22 02:33 Blood Pressure 128/89 04/08/22 02:29 Blood Pressure Position Sitting 04/08/22 02:29 Pulse Oximetry 99 04/08/22 02:29 Oxygen Delivery Method Room Air 04/08/22 02:29 Oxygen Flow Rate 0 04/08/22 02:29 Pain Level 9 04/08/22 02:33
--- NOTE | 2022-04-08 03:15 | DI.CT_ITS ---
Exam(s) CT ABDOMEN PELVIS WO EXAM: CT ABDOMEN PELVIS WO CLINICAL HISTORY: RLQ pain/tenderness. TECHNIQUE: Imaging Protocol: Axial computed tomography images with coronal and sagittal reformatted images were created and reviewed. Oral: no COMPARISON: CT CT ABDOMEN PELVIS W from 01/30/2022 FINDINGS: ABDOMEN: Lung Bases: Normal where visualized. Liver: Normal density. No measurable mass. Gallbladder and biliary tract: No radiodense calculus or dilation. Pancreas: Normal density, no abnormal calcifications or inflammatory process. Spleen: Normal. Kidneys: Normal size, contour and axis. No radiodense stones or obstructive uropathy. No masses seen. Adrenal glands: No masses seen. Lymph nodes: Within normal limits. Abdominal Aorta: Abdominal portion non-dilated. PELVIS: Bladder: Symmetric distention, no gross wall thickening. Bowel: No obstruction or bowel wall thickening. Appendix normal. Moderate to increased quantity of stool. Peritoneal cavity: No ascites, collection or mesenteric inflammatory response. Physiologic quantity o f fluid in the cul-de-sac. Reproductive organs: Small cyst versus dominant follicle right ovary. No change from prior.. Bones: Within normal limits. IMPRESSION: Unremarkable CT scan of the abdomen and pelvis. RADIATION DOSE DELIVERED: 1,038.47mGy.cm Total DLP DATA REPOSITORY: All CT scans at this facility are submitted to the National Radiology Data Registry (NRDR) Dose Index Registry (DIR) with the [employer] (A[employer]). RADIATION OPTIMIZATION: All CT scans at this facility use at least one of these dose optimization te chniques: automated exposure control; mA and/or kV adjustment per patient size (includes targeted exa ms where dose is matched to clinical indication); or iterative reconstruction.
[2022-04-08] MEDS: MORPHine 10 MG/ML VIAL 4 MG IVP (03:51)
[2022-04-08] MEDS: Lactated Ringers 1,000 ML 1000 ML IV (03:51)
[2022-04-08 03:52] LABS: Abs Immature Grans 0.01 10^3/uL (0.0-0.06); Absolute Basophil Count 0.04 10^3/uL (0.0-0.2); Absolute Eosinophil Count 0.13 10^3/uL (0.0-0.7); Absolute Lymphocyte Count 2.45 10^3/uL (1.2-3.4); Absolute Monocyte Count 0.46 10^3/uL (0.1-0.8); Absolute Neutrophil Count 3.25 10^3/uL (1.2-6.7); Basophils % 0.6; Eosinophils % 2.1; HCT 36.9 % (36.0-46.0); HGB 12.4 g/dL (11.2-15.7); Immature Grans % 0.2; Lymphocytes % 38.6; MCH 29.7 pg (27.0-33.0); MCHC 33.6 % (32.0-36.0); MCV 89 fL (80-95); MPV 9.6 fL (8.0-11.0); Monocytes % 7.3; Neutrophils % 51.2; Platelet Count 298 10^3/uL (130-400); RBC 4.17 10^6/uL (3.93-5.22); RDW 12.3 % (11.7-14.6); RDW-SD 39.8 fL; WBC 6.34 10^3/uL (4.4-10.8)
[2022-04-08] MEDS: Ondansetron 4 MG/2 ML VIAL IVP ×2 (03:52→08:01)
[2022-04-08 03:57] LABS: Lipase 93 U/L (73-393)
[2022-04-08 04:00] LABS: ALT 19 U/L (14-59); AST 10 U/L (15-37); Albumin 3.7 g/dL (3.4-5.0); Alkaline Phosphatase 57 U/L (46-116); Anion Gap 7.5 mmol/L (3-11); BUN 15 mg/dL (7-18); Bilirubin, Total 0.5 mg/dL (0.2-1.0); CO2 25.5 mmol/L (21.0-32.0); CREATININE 0.7 mg/dL (0.55-1.02); Calcium 8.3 mg/dL (8.5-10.1); Chloride 106 mmol/L (98-107); Glucose 95 mg/dL (74-106); Magnesium 1.9 mg/dL (1.8-2.4); Potassium 3.9 mmol/L (3.5-5.1); Sodium 139 mmol/L (136-145); Total Protein 6.9 g/dL (6.4-8.2)
[2022-04-08 04:06] LABS: HCG Qual (Serum) Negative
--- NOTE | 2022-04-08 05:14 | DI.VRAD_ITS ---
PROCEDURE INFORMATION: Exam: CT Abdomen And Pelvis Without Contrast Exam date and time: 04/08/2022 4:20 AM Age: 37 years old Clinical indication: Fever and nausea and vomiting; Abdominal pain; Localized; Right lower quadrant (rlq); Prior surgery; Surgery date: 6+ months; Surgery type: Tubal ligation; Patient HX: Rlq pain and tenderness TECHNIQUE: Imaging protocol: Computed tomography of the abdomen and pelvis without contrast. Radiation optimization: All CT scans at this facility use at least one of these dose optimization techniques: automated exposure control; mA and/or kV adjustment per patient size (includes targeted exams where dose is matched to clinical indication); or iterative reconstruction. COMPARISON: CT ABDOMEN PELVIS W 01/30/2022 11:11 AM FINDINGS: Liver: Normal. No mass. Gallbladder and bile ducts: Normal. No calcified stones. No ductal dilation. Pancreas: Normal. No ductal dilation. Spleen: Normal. No splenomegaly. Adrenal glands: Normal. No mass. Kidneys and ureters: Normal. No hydronephrosis. Stomach and bowel: Unremarkable. No obstruction. No mucosal thickening. Appendix: No evidence of appendicitis. Intraperitoneal space: Unremarkable. No free air. No significant fluid collection. Vasculature: Unremarkable. No abdominal aortic aneurysm. Lymph nodes: Unremarkable. No enlarged lymph nodes. Urinary bladder: Unremarkable as visualized. Reproductive: Stable 2.5 cm right ovarian cystic structure. Bones/joints: Unremarkable. No acute fracture. Soft tissues: Unremarkable. IMPRESSION: No acute findings. Dictated and Authenticated by: Nikhil Small MD. Ordering:TUNG Rice MD
--- NOTE | 2022-04-08 06:15 | DI.US_ITS ---
Exam(s) US PELVIS TRANSVAGINAL EXAM: US PELVIS TRANSVAGINAL CLINICAL HISTORY: RLQ pain with right adnexal cystic structure on CT TECHNIQUE: Transabdominal and transvaginal imaging was performed using standard protocol. COMPARISON: CT CT ABDOMEN PELVIS W from 01/30/[address] ABDOMEN PELVIS WO from 04/08/2022 FINDINGS: KIDNEYS: Kidneys are symmetric in size. No evidence of renal calculi. No evidence of hydronephrosis. No renal mass or cyst identified. UTERUS: Anteverted. 9.8 x 5.6 x 6.6 cm Endometrium: 10 millimeters Myometrium: Unremarkable. Cervix: Unremarkable. OVARIES: Right: Cyst or mass: 2.2 centimeter maximal dimension dominant follicle Left: Cyst or mass: None. DOPPLER: Color: Symmetric and uniform flow to both ovaries. No hyperemia. Duplex: Normal ovarian arterial waveforms visualized. CUL-DE-SAC: Free fluid: Trace. IMPRESSION: 1. Normal-appearing uterus with endometrial stripe within normal limits. 2. Dominant follicle right ovary. No evidence of torsion or other suspicious findings. DATA REPOSITORY:
[2022-04-08] MEDS: Ketorolac 30 MG/ML VIAL IVP (06:41)
[2022-04-08] MEDS: HYDROmorphone 2 MG/ML VIAL 1 MG IVP (07:19)
[2022-04-08 07:29] LABS: Bilirubin Negative (Negative); Blood Negative (Negative); Clarity Clear (Clear); Glucose Negative (Negative); Ketones Negative (Negative); Leukocyte Esterase Negative (Negative); Nitrite Negative (Negative); Urobilinogen 0.2 EU/dL (Up TO 0.2)
--- NOTE | 2022-04-08 08:52 | ED.PROG_ITS ---
Date of service: 04/08/22 Time of Service: 07:30 Medical Decision Making Patient signed out to me by Dr. Mane at time of shift change with ultrasound pending. Ultrasound negative for acute process. Patient reevaluated, continuing to complain of right lower quadrant pain and vomiting. Upon record review, patient was recently diagnosed with PAD due to retained tampon. She states that she completed all antibiotics and has had no residual symptoms from this. I discussed performing pelvic exam to evaluate for possible PID, other etiology of her pain given negative imaging at this point. Patient refused pelvic exam, states that her pain at this point feels entirely different than what she experienced with PID when she was seen here before. As per signout plan, I discussed patient with surgery for evaluation of ongoing pain of unknown etiology in the context of negative imaging. Dr. Walker reviewed imaging, states that there is a large stool burden, recommend mag citrate at this time, will be down to see patient. Surgery saw patient at bedside, reported to me that patient told them that she does not want any further evaluation at this time and wants to go home. On my reassessment patient states that she feels that her pain is manageable, she states that she does not want to take magnesium citrate in the ED, has laxatives at home, and will use [id number] meds that she already has once at home. She declines any further evaluation at this point. Has taken p.o. in the emergency department without vomiting. I had a discussion with Patient regarding return to emergency department precautions, home care, and importance of outpatient follow-up. Pt verbalizes understanding of the plan and is amenable. Patient discharged to home with clear plan for outpatient follow-up. All questions were answered. Disposition decision was made weighing the risks and benefits of hospitalization versus outpatient treatment, the risk for further decompensation, and the patient's wishes. Medical Records Medical records reviewed: Yes I reviewed the patient's medical records. Imaging Data Radiologic Study: Attestation: I personally reviewed and interpreted this imaging study as follows: Radiologist's impression: EXAM:? US PELVIS ? TRANSVAGINAL CLINICAL HISTORY:? RLQ pain with right adnexal cystic structure on CT TECHNIQUE:? Transabdominal and transvaginal imaging was performed using standard protocol. COMPARISON:? CT CT ABDOMEN ? PELVIS W from 01/30/[address] ABDOMEN ? PELVIS WO from 04/08/2022 FINDINGS: KIDNEYS: Kidneys are symmetric in size. No evidence of renal calculi. No evidence of hydronephrosis. No renal mass or cyst identified. UTERUS: Anteverted.? 9.8 x 5.6 x 6.6 cm Endometrium: 10 millimeters Myometrium: Unremarkable. Cervix: Unremarkable. OVARIES: Right: Cyst or mass: 2.2 centimeter maximal dimension dominant follicle Left: Cyst or mass: None. DOPPLER: Color: Symmetric and uniform flow to both ovaries. No hyperemia. Duplex: Normal ovarian arterial waveforms visualized. CUL-DE-SAC: Free fluid: Trace. IMPRESSION: 1. Normal-appearing uterus with endometrial stripe within normal limits. 2. Dominant follicle right ovary.? No evidence of torsion or other suspicious findings.? Lab Data Lab results reviewed: Yes I reviewed the patient's lab results. Labs: Laboratory Tests Range/Units 04/08/22 04/08/22 04/08/22 03:40 03:40 03:40 WBC (4.4-10.8) 10^3/uL RBC (3.93-5.22) 10^6/uL Hgb (11.2-15.7) g/dL Hct (36.0-46.0) % MCV (80-95) fL MCH (27.0-33.0) pg MCHC (32.0-36.0) % RDW (11.7-14.6) % Plt Count (130-400) 10^3/uL MPV (8.0-11.0) fL Immature Gran % Neutrophils % Lymphocytes % Monocytes % Eosinophils % Basophils % Nucleated RBC % (0.0-0.3) % Absolute Neutrophils (1.2-6.7) 10^3/uL Absolute Lymphocytes (1.2-3.4) 10^3/uL Absolute Monocytes (0.1-0.8) 10^3/uL Absolute Eosinophils (0.0-0.7) 10^3/uL Absolute Basophils (0.0-0.2) 10^3/uL Sodium (136-145) mmol/L 139 Potassium (3.5-5.1) mmol/L 3.9 Chloride (98-107) mmol/L 106 Carbon Dioxide (21.0-32.0) mmol/L 25.5 Anion Gap (3-11) mmol/L 7.5 BUN (7-18) mg/dL 15 Creatinine (0.55-1.02) mg/dL 0.7 Estimated GFR/1.73 m2 (mL/min/1.73m2) >= 60.00 Glucose (74-106) mg/dL 95 Calcium (8.5-10.1) mg/dL 8.3 L Magnesium (1.8-2.4) mg/dL 1.9 Total Bilirubin (0.2-1.0) mg/dL 0.5 AST (15-37) U/L 10 L ALT (14-59) U/L 19 Alkaline Phosphatase (46-116) U/L 57 Total Protein (6.4-8.2) g/dL 6.9 Albumin (3.4-5.0) g/dL 3.7 Lipase (73-393) U/L 93 Serum HCG, Qual Negative Urine Color (Yellow) Urine Clarity (Clear) Urine pH (5-8) Ur Specific [place] (1.005-1.025) Urine Protein (Negative) mg/dL Urine Ketones (Negative) mg/dL Urine Blood (Negative) Urine Nitrite (Negative) Urine Bilirubin (Negative) Urine Urobilinogen (Up TO 0.2) EU/dL Ur Leukocyte Esterase (Negative) Urine Glucose (Negative) mg/dL Range/Units 04/08/22 04/08/22 03:40 07:06 WBC (4.4-10.8) 10^3/uL 6.34 RBC (3.93-5.22) 10^6/uL 4.17 Hgb (11.2-15.7) g/dL 12.4 Hct (36.0-46.0) % 36.9 MCV (80-95) fL 89 MCH (27.0-33.0) pg 29.7 MCHC (32.0-36.0) % 33.6 RDW (11.7-14.6) % 12.3 Plt Count (130-400) 10^3/uL 298 MPV (8.0-11.0) fL 9.6 Immature Gran % 0.2 Neutrophils % 51.2 Lymphocytes % 38.6 Monocytes % 7.3 Eosinophils % 2.1 Basophils % 0.6 Nucleated RBC % (0.0-0.3) % 0.0 Absolute Neutrophils (1.2-6.7) 10^3/uL 3.25 Absolute Lymphocytes (1.2-3.4) 10^3/uL 2.45 Absolute Monocytes (0.1-0.8) 10^3/uL 0.46 Absolute Eosinophils (0.0-0.7) 10^3/uL 0.13 Absolute Basophils (0.0-0.2) 10^3/uL 0.04 Sodium (136-145) mmol/L Potassium (3.5-5.1) mmol/L Chloride (98-107) mmol/L Carbon Dioxide (21.0-32.0) mmol/L Anion Gap (3-11) mmol/L BUN (7-18) mg/dL Creatinine (0.55-1.02) mg/dL Estimated GFR/1.73 m2 (mL/min/1.73m2) Glucose (74-106) mg/dL Calcium (8.5-10.1) mg/dL Magnesium (1.8-2.4) mg/dL Total Bilirubin (0.2-1.0) mg/dL AST (15-37) U/L ALT (14-59) U/L Alkaline Phosphatase (46-116) U/L Total Protein (6.4-8.2) g/dL Albumin (3.4-5.0) g/dL Lipase (73-393) U/L Serum HCG, Qual Urine Color (Yellow) Yellow Urine Clarity (Clear) Clear Urine pH (5-8) 7.0 Ur Specific [place] (1.005-1.025) 1.020 Urine Protein (Negative) mg/dL Negative Urine Ketones (Negative) mg/dL Negative Urine Blood (Negative) Negative Urine Nitrite (Negative) Negative Urine Bilirubin (Negative) Negative Urine Urobilinogen (Up TO 0.2) EU/dL 0.2 Ur Leukocyte Esterase (Negative) Negative Urine Glucose (Negative) mg/dL Negative Sign Out Sign Out Data: Sign Out Comment: Pending pelvic ultrasound and if negative surgical consult. Last updated by Dwayne Mane MD at 04/08/22 08:20 Discharge Plan Disposition Patient Disposition: HOME Condition: Stable Discharge Details Clinical Impression: Abdominal pain, acute, right lower quadrant Primary Care Provider: Kita Clark ED Provider: Tammy Banks Discharge Instructions Instructions: Constipation (ED), Abdominal Pain (ED) Additional Instructions: Please return immediately to the emergency department if you develop any new or worsening symptoms, if your condition does not improve as expected, or if you become otherwise concerned. It is extremely important that you call soon as possible to make an appointment to be seen in follow-up for this visit by your primary care doctor. Referrals: Kita Clark MD [Primary Care Provider] - Discharge Data Discharge Date/Time-TO BE ENTERED AT DEPARTURE: 04/08/22 11:34
[2022-04-08] MEDS: Metoclopramide 10 MG/2 ML VIAL IVP (10:11)
[2022-04-08] MEDS: Normal Saline 50 ML (10:12)
[2022-04-08] MEDS: Magnesium Citrate 300 ML BTL 150 ML PO (10:18)
[2022-04-08] MEDS: Normal Saline Flush 10 ML SYR IVP (10:46)
--- NOTE | 2022-04-08 12:07 | SCONE_ITS ---
Date of service: 04/08/22 Time of Service: 12:08 Assessment and Plan Assessment and plan (1) Abdominal pain, acute, right lower quadrant: Status: Acute Assessment and plan: A//Patient was given magnesium citrate in the ER. Discussed with the patient that her symptoms may be associated with constipation and/or the her right ovary. Discussed with the patient a trial of laxatives to see if promotes having a bowel movement, and if her symptoms improve. On exam patient expressed exquisite right lower quadrant pain however there was no guarding noted while this area was. Given patient's normal CT scan and lab work, this is reassuring to rule out appendicitis. Spoke with Dr. Banks after seeing and evaluating patient. P//Recommend medical management with [id number] pain control and continued watchful waiting. Discussed with patient that we could set up a follow-up appointment as an outpatient with surgical office. History of Present Illness Narrative: 37-year-old female with history of pelvic inflammatory disease scented to the ER early this morning with complaints of right lower quadrant pain that been progressively worsening since Friday 04/06. Patient's work-up in the ER included labs, CT scan and pelvic ultrasound. Labs and CT scan were unremarkable. Pelvic ultrasound did show a dominant follicle on the right ovary. Patient states that she has been experiencing nausea and vomiting ass ociated with her level of pain. She states sitting in a flexed position improves her pain. Patient reports her last bowel movement was yesterday morning 04/07. She denies any sensation of feeling constipated. Patient verbalized frustration in her care today and expressed that she is very tired and she wishes to be discharged home. 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) Arthralgia of right acromioclavicular joint (Acute 02/26/17) Right rotator cuff tendinitis (Acute 12/09/16) Patellar tendon strain (Acute) Patellar tendinitis of left knee (Acute) Pain of left knee after injury (Acute) Lesion of left femur (Acute) Surgical History History of tonsillectomy and adenoidectomy Ligation of fallopian tube Social History Smoking/Tobacco Use Status: Former Tobacco Use Smoking risk assessment performed?: Yes Alcohol Intake: current Alcohol Intake frequency: a few times a month Drug use: Never Substance use type: does not use Do you feel safe at home: Yes Do you feel safe in your relationship?: Yes Female Reproductive History Menstrual control method: permanent sterilization History History 4 Para 4 Hx # Term Pregnancies Multiple births Hx # Pregnancies Ectopic pregnancies AB induced Hx Number of Living Children AB spontaneous Past Pregnancies Del. Date GA/Weeks # Outcome Route Wgt Sex Labor Lgth Anesthes ia Location Prov Complic 08/01/04 40 No Successful vaginal Female [facility] 05/01/07 40 No Successful vaginal Female [facility] 08/16/09 40 No Successful vaginal Male [facility] 06/07/12 40 No Successful vaginal Female [facility] Exam Const General: healthy appearing and comfortable Orientation: alert and oriented x3 Resp Effort & Inspection: normal respiratory effort, no audible wheezes and no cough GI Inspection: normal to inspection Palpation: soft, no guarding and tender in the RLQ Auscultation: normal bowel sounds Results Last Vital Signs Temp 37.1 C 04/08/22 02:29 Pulse 91 H 04/08/22 02:29 Resp 18 04/08/22 02:29 BP 128/89 04/08/22 02:29 Pulse Ox 99 04/08/22 02:29 Labs Result diagrams: 04/08/22 03:40 04/08/22 03:40 Labs: Laboratory Results - last 24 hr 04/08/22 04/08/22 04/08/22 03:40 03:40 03:40 WBC RBC Hgb Hct MCV MCH MCHC RDW Plt Count MPV Immature Gran % Neutrophils % Lymphocytes % Monocytes % Eosinophils % Basophils % Nucleated RBC % Absolute Neutrophils Absolute Lymphocytes Absolute Monocytes Absolute Eosinophils Absolute Basophils Sodium 139 Potassium 3.9 Chloride 106 Carbon Dioxide 25.5 Anion Gap 7.5 BUN 15 Creatinine 0.7 Estimated GFR/1.73 m2 >= 60.00 Glucose 95 Calcium 8.3 L Magnesium 1.9 Total Bilirubin 0.5 AST 10 L ALT 19 Alkaline Phosphatase 57 Total Protein 6.9 Albumin 3.7 Lipase 93 Serum HCG, Qual Negative Urine Color Urine Clarity Urine pH Ur Specific [place] Urine Protein Urine Ketones Urine Blood Urine Nitrite Urine Bilirubin Urine Urobilinogen Ur Leukocyte Esterase Urine Glucose 04/08/22 04/08/22 03:40 07:06 WBC 6.34 RBC 4.17 Hgb 12.4 Hct 36.9 MCV 89 MCH 29.7 MCHC 33.6 RDW 12.3 Plt Count 298 MPV 9.6 Immature Gran % 0.2 Neutrophils % 51.2 Lymphocytes % 38.6 Monocytes % 7.3 Eosinophils % 2.1 Basophils % 0.6 Nucleated RBC % 0.0 Absolute Neutrophils 3.25 Absolute Lymphocytes 2.45 Absolute Monocytes 0.46 Absolute Eosinophils 0.13 Absolute Basophils 0.04 Sodium Potassium Chloride Carbon Dioxide Anion Gap BUN Creatinine Estimated GFR/1.73 m2 Glucose Calcium Magnesium Total Bilirubin AST ALT Alkaline Phosphatase Total Protein Albumin Lipase Serum HCG, Qual Urine Color Yellow Urine Clarity Clear Urine pH 7.0 Ur Specific [place] 1.020 Urine Protein Negative Urine Ketones Negative Urine Blood Negative Urine Nitrite Negative Urine Bilirubin Negative Urine Urobilinogen 0.2 Ur Leukocyte Esterase Negative Urine Glucose Negative
== END 2022-04-08 11:34 | disposition home or self-care (01) ==
PROVIDERS: Emergency Medicine; Emergency Provider Student in an Organized Health Care Education/Training Program; PCP Family Medicine
DX: R10.31 Right lower quadrant pain (principal); R50.9 Fever, unspecified; N83.291 Other ovarian cyst, right side
CPT/HCPCS: 80053; 81025; 83690; 96361; 96374; 96375; 96376; 99284; 74176; 76830; 76856; 81003; 83735; 84703; 85025; J1885; J2270; J2405; J2765

== ENCOUNTER 2022-09-30 15:01 | Outpatient (REF) | payer MEDICAID, SELFPAY ==
[2022-10-01 10:26] LABS: Hepatitis C Ab w Rflx HCV PCR Negative (Negative)
[2022-10-01 10:49] LABS: HIV-1/2 Ag & Ab Screen Negative (Negative)
[2022-10-01 12:11] LABS: Syphilis Serology (RPR) Negative (Negative)
[2022-10-02 14:00] LABS: Chlamydia Result Negative (Negative); GC Result Negative (Negative)
== END 2022-09-30 15:02 | disposition home or self-care (01) ==
LOC: NCHCN 15:01
PROVIDERS: PCP Family Medicine; Visit Provider Family Medicine
DX: R10.2 Pelvic and perineal pain (principal); Z11.4 Encounter for screening for human immunodeficiency virus [HIV]; Z11.59 Encounter for screening for other viral diseases; Z11.3 Encounter for screening for infections with a predominantly sexual mode of transmission
CPT/HCPCS: 86803; 87389; 87491; 87591; 86592

== ENCOUNTER 2023-05-08 23:23 | Emergency (ER) | payer MEDICAID, SELFPAY ==
--- NOTE | 2023-05-08 23:15 | RT.EKG_ITS ---
APPROVED REPORT Exam: Resting ECG Reason for Exam: chest pain Patient Location: E HR:81 bpm ECG Measurements Heart Rate 81 AXIS SD 165 P 48 QRSd 97 QRS 2 QT 393 T 23 QTc 457 Conclusion Sinus rhythm...normal P axis, V-rate 60- 99 sinus rhtyhm, left axis, non ischemic
[2023-05-08 23:31] VITALS: BP 153/105; PULSE 80; RESP 16; TEMP 36.6; O2SAT 100
--- NOTE | 2023-05-09 02:38 | ED.GENADUL_ITS ---
Discharge Plan Disposition Patient Disposition: Against Medical Advice Discharge Details Clinical Impression: Chest pain, Left arm numbness Primary Care Provider: Kita Clark ED Provider: Jessica Barrett Discharge Instructions Instructions: Chest Pain (ED) Additional Instructions: Return here at any time for reevaluation. Start enteric-coated baby aspirin (81 mg) once daily until you see your primary care provider. Call your primary care provider in the morning for a follow-up appointment and return here at any time for further evaluation. Discharge Data Discharge Date/Time-TO BE ENTERED AT DEPARTURE: 05/09/23 02:47 Discharge Physician: Jessica Barrett Medical Decision Making This is a healthy 38-year-old female whose only risk factors for coronary disease are a prior history of tobacco use. She presents with atypical chest pain and left arm numbness. The patient's chest pain is described as throbbing and radiating to the left neck. It is not pleuritic. The arm numbness is constant and radiates down her arm in a glove like distribution. Her symptoms began over the past several days but got worse over the past 24 hours. She is right-hand dominant. She has also had a nonproductive cough. Differential is broad and includes atypical angina, chest wall/musculoskeletal discomfort, cervical or other peripheral radiculopathy. Less likely is MS, respiratory causes such as pneumonia or PE. Her EKG is reassuring though I would like to obtain a chest x-ray and blood work. She voices understanding of the risks and benefits including significant mortality and morbidity and has elected to sign out AGAINST MEDICAL ADVICE Differential Diagnosis Differential Diagnosis: Please see MDM narrative above Medical Records Medical records reviewed: Yes I reviewed the patient's medical records. HPI General Date/Time Provider Initiated Documentation: 05/09/23 02:38 . Limitations to Documentation: no limitations . Information obtained by: RN notes reviewed and old records reviewed . History of Present Illness Quality is described as stabbing, sharp and dull, HPI Narrative: The patient is a healthy 38-year-old female who does not have a history of hypertension, diabetes, cocaine use, hyperlipidemia or family history of coronary artery disease who presents with substernal chest pain that began yesterday while at rest, while sitting at her desk and which is intermittent, lasting seconds to minutes in her chest and associated with left arm numbness which began as numbness in the left neck, left anterior shoulder and now which radiates down the entire left arm in a glove-like distribution. She is a former smoker but does not take control pills or use exogenous hormones. She denies any trauma or neck pain currently. She denies any trauma, fever, chills or shortness of breath. She has had previous similar episodes but this episode was more intense. She has never had a cardiac work-up. She denies any other aggravating or alleviating factors. The symptoms are not exacerbated or all eviated by position or movement. She denies any peripheral edema. She denies any recent travel or surgeries. She does not exercise routinely but states she is very active and ambulatory generally. Related Data Allergies Allergy/AdvReac Type Severity Reaction Status Date / Time amoxicillin [Amoxicillin] Allergy Severe facial Verified 04/08/22 02:35 swelling cefuroxime [From Ceftin] Allergy Unknown Unverified 04/08/22 02:35 hydrocodone bitartrate AdvReac Severe Nausea, Verified 04/08/22 02:35 [From Vicodin] vomiting General Stated Complaint: Chest Pain WADE: 2 Review of Systems All systems reviewed & are unremarkable except as noted in HPI and below ENT Ears, Nose, Mouth, and Throat: Reports dizziness Neurologic Neurologic: Reports dizziness Comments: Left arm numbness. 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) Arthralgia of right acromioclavicular joint (Acute 02/26/17) Right rotator cuff tendinitis (Acute 12/09/16) Patellar tendon strain (Acute) Patellar tendinitis of left knee (Acute) Pain of left knee after injury (Acute) Lesion of left femur (Acute) Surgical History History of tonsillectomy and adenoidectomy Ligation of fallopian tube Social History Smoking/Tobacco Use Status: Former Tobacco Use Smoking risk assessment performed?: Yes Alcohol Intake: current Alcohol Intake frequency: a few times a month Drug use: Never Substance use type: does not use Do you feel safe at home: Yes Do you feel safe in your relationship?: Yes Female Reproductive History Menstrual control method: permanent sterilization History History 4 Para 4 Hx # Term Pregnancies Multiple births Hx # Pregnancies Ectopic pregnancies AB induced Hx Number of Living Children AB spontaneous Past Pregnancies Del. Date GA/Weeks # Preg Succ Route Wgt Sex Labor Lgth Anesth esia Location Prov Complic 08/01/04 40 No vaginal Female [facility] 05/01/07 40 No vaginal Female [facility] 08/16/09 40 No vaginal Male [facility] 06/07/12 40 No vaginal Female [facility] Exam Const General: cooperative, healthy appearing, comfortable, no acute distress, well developed, well groomed and well hydrated Nutritional Appearance: average body habitus and well nourished Orientation: alert, awake and oriented x3 HENMT Head: normal to inspection, normocephalic and atraumatic Ears: hearing grossly normal bilaterally and external ears normal General nose exam: external nose normal and no nasal discharge Face and sinus: normal facial exam Mouth: moist mucous membranes and other (Normal phonation) Eyes General: appearance normal, both eyes and all related structures Pupils: PERRL EOM: EOM intact bilaterally Neck Neck: normal visual inspection and full ROM Chest Chest: normal inspection of the chest Resp Effort & Inspection: normal respiratory effort and able to speak in complete sentences Auscultation: clear to auscultation bilaterally Cardio Rate: regular rate Rhythm: regular rhythm Heart Sounds: S1 normal and S2 normal GI Inspection: normal to inspection and non-distended Palpation: soft and nontender Back/Spine/Pelvis Back: no CVA tenderness Cervical Spine: normal cervical lordosis Thoracic/Lumbar Spine: thoracic and lumbar spine normal to inspection Skin General skin exam: no rashes or lesions noted, turgor normal, no petechiae and no purpura Rashes: no rashes Trauma: no lacerations or abrasions Neuro General: patient alert, patient awake, patient oriented x3, no meningeal signs, no focal motor deficits and CN's II-XI intact bilaterally Cranial Nerves: CN's II-XI intact bilaterally Cognition: normal cognition Speech: speech normal Gait: normal gait Motor: muscle tone normal throughout Sensory Exam: no sensory deficits noted Extrem General: normal to inspection, full ROM, capillary refill normal and normal exam except as noted Psych Appearance: grossly normal Affect: normal affect Attitude: cooperative Insight: insight good Judgment: judgment good Other: The patient appears to have capacity make medical decisions. Course After obtaining the history and physical and after reviewing her EKG I advised that the patient have blood work ordered. She declined saying she felt better and was tired and wanted to go home. I advised her that she would have to leave AGAINST MEDICAL ADVICE, but emphasized that I was not angry and that she could return at any time for re-evaluation, blood work and radiographs. I encouraged her to follow-up with her primary care provider and to return for any concerns. Vital Signs Vital signs: Vital Signs Temperature 36.6 C 05/08/23 23:31 Pulse 80 05/08/23 23:31 Respiratory Rate 16 05/08/23 23:31 Blood Pressure 153/105 H 05/08/23 23:31 Pulse Oximetry 100 05/08/23 23:31 Temperature 36.6 C 05/08/23 23:31 Temperature Source Temporal Artery Scan 05/08/23 23:31 Pulse 80 05/08/23 23:31 Respiratory Rate 16 05/08/23 23:31 Respiratory Effort Normal 05/08/23 23:31 Blood Pressure 153/105 H 05/08/23 23:31 Blood Pressure Position Sitting 05/08/23 23:31 Pulse Oximetry 100 05/08/23 23:31 Oxygen Delivery Method Room Air 05/08/23 23:31 Oxygen Flow Rate 0 05/08/23 23:31 Pain Level 0 05/08/23 23:31
[2023-05-09 02:40] VITALS: BP 138/95; PULSE 71; RESP 16; TEMP 36.6; O2SAT 98
[2023-05-09 03:00] VITALS: RESP 16
--- NOTE | 2023-05-12 17:44 | NUR.NOTE ---
Addendum entered by Renee Coe 05/13/23 17:07: Accessed pt chart to determine number of EKG orders. Original Note: Nursing Note: Nursing Note: Accessed pt chart to determine number of EKG orders.
== END 2023-05-09 02:47 | disposition left against medical advice (07) ==
PROVIDERS: Emergency Provider Emergency Medicine Emergency Medical Services; PCP Family Medicine
DX: R42 Dizziness and giddiness (principal); R07.9 Chest pain, unspecified; R20.0 Anesthesia of skin; Z87.891 Personal history of nicotine dependence; Z53.29 Procedure and treatment not carried out because of patient's decision for other reasons
CPT/HCPCS: 93005; 99283; 93010

== ENCOUNTER 2023-12-17 11:42 | Emergency (ER) | payer MEDICAID, SELFPAY ==
[2023-12-17 12:00] VITALS: BP 151/107; PULSE 80; RESP 16; TEMP 37.1; O2SAT 98
--- NOTE | 2023-12-17 12:30 | RT.EKG_ITS ---
APPROVED REPORT Exam: Resting ECG Reason for Exam: chest tightness Patient Location: E HR:79 bpm ECG Measurements Heart Rate 79 AXIS AR 152 P 43 QRSd 97 QRS 0 QT 392 T 9 QTc 451 Conclusion Sinus rhythm...normal P axis, V-rate 60- 99 Low voltage, precordial leads...precordial leads <1.0mV Narrow complex normal sinus rhythm at a rate of 79. Left axis deviation no signs of LVH based on vol tage criteria. Poor R wave progression. AR and QTc is within normal limits. Low voltage precordial leads. Compared to prior dated last year low voltage is persistent. Poor R wave progression is als o persistent.
[2023-12-17 13:07] VITALS: RESP 18
[2023-12-17 13:12] LABS: Bilirubin Negative (Negative); Blood Negative (Negative); Clarity Clear (Clear); Glucose Negative (Negative); Ketones Negative (Negative); Leukocyte Esterase Trace (Negative); Nitrite Negative (Negative); Specific Gravity 1.025 (1.005-1.025); Urobilinogen 0.2 mg/dL (Up to 0.2)
--- NOTE | 2023-12-17 13:15 | DI.CT_ITS ---
Exam(s) CT ABDOMEN PELVIS W EXAM: CT ABDOMEN PELVIS W CLINICAL HISTORY: abdominal pain, bilateral flank and ruq pain. TECHNIQUE: Imaging Protocol: Axial computed tomography images with coronal and sagittal reformatted images were created and reviewed CONTRAST MATERIAL: Intravenous: Omnipaque-350 100cc Oral: None COMPARISON: CT CT ABDOMEN PELVIS WO from 04/08/2022 FINDINGS: VISUALIZED LUNG BASES: No nodules nor pleural effusions evident. ABDOMEN: There is no ascites. LIVER: There are no focal hepatic lesions evident. No dilated intrahepatic ducts. GALLBLADDER/BILIARY: No obvious gallbladder pathology. CBD is not dilated. PANCREAS: No evidence of pancreatic mass nor dilatation of the pancreatic duct. SPLEEN: Spleen is not enlarged. No obvious intrasplenic lesions. Splenic and portal veins are paten t. ADRENALS: There are no significant adrenal masses. KIDNEYS:No cysts evident. No solid renal masses. No calculi nor hydronephrosis.. ABDOMINAL AORTA: Abdominal aorta is not enlarged. LYMPH NODES:There is no retroperitoneal nor paraaortic adenopathy. ABDOMINAL WALL: No evidence of significant anterior abdominal wall nor inguinal hernia. GI: There is no evidence of bowel obstruction, free air, nor abscess. PELVIS: GI: No evidence of appendicitis.No evidence of sigmoid diverticulitis. LYMPH NODES: There is no intrapelvic nor inguinal adenopathy. REPRODUCTIVE: Uterus size is slightly prominent. Endometrium appears thickened. No abnormal adnexal masses. No free fluid. URINARY BLADDER: No calculi nor obvious masses evident OSSEOUS: No fractures and no significant osseous lesions. IMPRESSION: 1. Thickened endometrium. Can be further studied with ultrasound. No abnormal adnexal masses. 2. No evidence of appendicitis nor diverticulitis. 3. No renal calculi nor hydronephrosis. Called by myself to ER provider RADIATION DOSE DELIVERED: 1,180.37mGy.cm Total DLP DATA REPOSITORY: All CT scans at this facility are submitted to the National Radiology Data Registry (NRDR) Dose Index Registry (DIR) with the [employer] (ACR). RADIATION OPTIMIZATION: All CT scans at this facility use at least one of these dose optimization te chniques: automated exposure control; mA and/or kV adjustment per patient size (includes targeted exa ms where dose is matched to clinical indication); or iterative reconstruction.
--- NOTE | 2023-12-17 13:15 | DI.RAD_ITS ---
Exam(s) XR CHEST 2V PA LATERAL EXAM: XR CHEST 2V PA LATERAL CLINICAL HISTORY: shortness. TECHNIQUE: 2D digital imaging was performed. COMPARISON: No exams were available for comparison FINDINGS: 2 views: Heart size is normal. The mediastinum is not widened. Lungs are clear. No infiltrates nor pleural effusions. IMPRESSION: No acute pulmonary findings. DATA REPOSITORY: RADIATION DOSE DELIVERED:
[2023-12-17 13:23] LABS: Bacteria Negative HPF (Negative); C & S Indicated? No/Sq. Contamination; Casts Negative LPF (Negative); Crystals Negative HPF (Negative); Epithelial Cells Moderate HPF (Negative); Mucus Trace (Negative); RBC 0-2 HPF (0-2)
[2023-12-17 13:39] LABS: Abs Immature Grans 0.03 10^3/uL (0.0-0.06); Absolute Basophil Count 0.04 10^3/uL (0.0-0.2); Absolute Eosinophil Count 0.15 10^3/uL (0.0-0.7); Absolute Lymphocyte Count 1.78 10^3/uL (1.2-3.4); Absolute Monocyte Count 0.41 10^3/uL (0.1-0.8); Absolute Neutrophil Count 5.41 10^3/uL (1.2-6.7); Basophils % 0.5; Eosinophils % 1.9; HCT 41.1 % (36.0-46.0); HGB 13.8 g/dL (11.2-15.7); Immature Grans % 0.4; Lymphocytes % 22.8; MCH 29.6 pg (27.0-33.0); MCHC 33.6 % (32.0-36.0); MCV 88 fL (80-95); MPV 9.6 fL (8.0-11.0); Monocytes % 5.2; Neutrophils % 69.2; Platelet Count 353 10^3/uL (130-400); RBC 4.67 10^6/uL (3.93-5.22); RDW 12.5 % (11.7-14.6); RDW-SD 40.1 fL; WBC 7.82 10^3/uL (4.4-10.8)
[2023-12-17] MEDS: Orphenadrine 60 MG/2 ML VIAL IVP (13:45)
[2023-12-17 13:56] LABS: ALT 35 U/L (14-59); AST 20 U/L (15-37); Alkaline Phosphatase 77 U/L (46-116); Anion Gap 9.2 mmol/L (3-11); BUN 15 mg/dL (7-18); Bilirubin, Total 0.2 mg/dL (0.2-1.0); CO2 24.8 mmol/L (21.0-32.0); CREATININE 0.7 mg/dL (0.55-1.02); Calcium 8.8 mg/dL (8.5-10.1); Chloride 105 mmol/L (98-107); Estimated GFR 114.88 (mL/min/1.73m2); Glucose 89 mg/dL (74-106); Lipase 39 U/L (16-77); Sodium 139 mmol/L (136-145); Total Protein 7.8 g/dL (6.4-8.2)
[2023-12-17 14:01] LABS: Troponin I < 50 ng/L (< or =60)
[2023-12-17] MEDS: Normal Saline - Diluent 50 ML VIAL IJ (14:07)
[2023-12-17] MEDS: Omnipaque 350 MG/ML 100 ML BTL IJ (14:08)
--- NOTE | 2023-12-17 15:15 | W.ED.GENAD ---
HPI General Date/Time Provider Initiated Documentation: 12/17/23 13:04. HPI Narrative: This 38-year-old female presents with report chest and back pain for the past 2 weeks. Denies any history of coronary artery disease does smoke daily. Denies history of hypertension or hyperlipidemia. Denies chance of . She denies dysuria or frequency. Denies history of similar symptoms in the past. Denies any alleviating factors denies known trauma. Denies illicit drug use or early family history of coronary artery disease. Related Data Home Medications Medication Instructions Recorded Confirmed cyclobenzaprine 10 mg tablet 10 mg PO TID PRN #15 tabs 12/17/23 Previous Rx's Medication Instructions Recorded cyclobenzaprine 10 mg tablet 10 mg PO TID PRN #15 tabs 12/17/23 Allergies Allergy/AdvReac Type Severity Reaction Status Date / Time amoxicillin [Amoxicillin] Allergy Severe facial Verified 12/17/23 14:04 swelling cefuroxime [From Ceftin] Allergy Unknown Skin Rash Unverified 12/17/23 14:04 hydrocodone bitartrate AdvReac Severe Nausea, Verified 12/17/23 14:04 [From Vicodin] vomiting General Stated Complaint: FlankPain WADE: 3 Course Vital Signs Vital signs: Vital Signs Temperature 37.1 C 12/17/23 12:00 Pulse 80 12/17/23 12:00 Respiratory Rate 16 12/17/23 12:00 Blood Pressure 151/107 H 12/17/23 12:00 Pulse Oximetry 98 12/17/23 12:00 Temperature 37.1 C 12/17/23 12:00 Pulse 80 12/17/23 12:00 Respiratory Rate 18 12/17/23 13:07 Respiratory Effort Normal 12/17/23 13:07 Respiratory Depth Normal 12/17/23 13:07 Respiratory Pattern Normal 12/17/23 13:07 Blood Pressure 151/107 H 12/17/23 12:00 Pulse Oximetry 98 12/17/23 12:00 Lab/Test Results Lab/Test Results: Laboratory Tests Range/Units 12/17/23 12/17/23 12:45 13:01 WBC (4.4-10.8) 10^3/uL 7.82 RBC (3.93-5.22) 10^6/uL 4.67 Hgb (11.2-15.7) g/dL 13.8 Hct (36.0-46.0) % 41.1 MCV (80-95) fL 88 MCH (27.0-33.0) pg 29.6 MCHC (32.0-36.0) % 33.6 RDW (11.7-14.6) % 12.5 Plt Count (130-400) 10^3/uL 353 MPV (8.0-11.0) fL 9.6 Immature Gran % 0.4 Neutrophils % 69.2 Lymphocytes % 22.8 Monocytes % 5.2 Eosinophils % 1.9 Basophils % 0.5 Nucleated RBC % (0.0-0.3) % 0.0 Absolute Neutrophils (1.2-6.7) 10^3/uL 5.41 Absolute Lymphocytes (1.2-3.4) 10^3/uL 1.78 Absolute Monocytes (0.1-0.8) 10^3/uL 0.41 Absolute Eosinophils (0.0-0.7) 10^3/uL 0.15 Absolute Basophils (0.0-0.2) 10^3/uL 0.04 Sodium (136-145) mmol/L 139 Potassium (3.5-5.1) mmol/L 4.0 Chloride (98-107) mmol/L 105 Carbon Dioxide (21.0-32.0) mmol/L 24.8 Anion Gap (3-11) mmol/L 9.2 BUN (7-18) mg/dL 15 Creatinine (0.55-1.02) mg/dL 0.7 Est GFR (CKD-EPI 2020) (mL/min/1.73m2) 114.88 Glucose (74-106) mg/dL 89 Calcium (8.5-10.1) mg/dL 8.8 Total Bilirubin (0.2-1.0) mg/dL 0.2 AST (15-37) U/L 20 ALT (14-59) U/L 35 Alkaline Phosphatase (46-116) U/L 77 Troponin I (< or =60) ng/L < 50 Total Protein (6.4-8.2) g/dL 7.8 Albumin (3.4-5.0) g/dL 4.0 Lipase (16-77) U/L 39 Urine Color (Yellow) Yellow Urine Clarity (Clear) Clear Urine pH (5-8) 6.0 Ur Specific [place] (1.005-1.025) 1.025 Urine Protein (Neg-Trace) mg/dL Negative Urine Ketones (Negative) mg/dL Negative Urine Blood (Negative) Negative Urine Nitrite (Negative) Negative Urine Bilirubin (Negative) Negative Urine Urobilinogen (Up to 0.2) mg/dL 0.2 Ur Leukocyte Esterase (Negative) Trace H Urine RBC (0-2) HPF 0-2 Urine WBC (0-5) HPF 3-5 Ur Epithelial Cells (Negative) HPF Moderate Urine Crystals (Negative) HPF Negative Urine Bacteria (Negative) HPF Negative Urine Casts (Negative) LPF Negative Urine Mucus (Negative) Trace Ur Culture Indicated? No/Sq. Contamination Urine Glucose (Negative) mg/dL Negative POC- Test(urine) Negative Medical Decision Making 38-year-old female presenting with flank pain bilaterally, tenderness to palpation bilaterally, no visible sign of trauma rashes or lesions, no tenderness to the anterior abdominal region, reproducible tenderness left side of chest, neurovascularly intact all 4 extremities Chest x-ray without acute abnormality per radiology interpretation my review CT abdomen pelvis without acute abnormality per radiology interpretation my review Patient will take Tylenol and ibuprofen as needed pain Given Norflex, did not like the way it made her feel for patient Exam is benign, I have low suspicion for cardiac etiology of patient's complaints, CT does not show evidence of acute renal abnormality or any acute intra-abdominal process Labs are reassuring, negative troponin, EKG without obvious evidence of ischemia or injury Observed on telemetry without dysrhythmia Will take ibuprofen and Tylenol, Flexeril for home as needed Encouraged to follow-up with primary care physician for outpatient reassessment Blood pressure was elevated during stay, will need to have this rechecked in the outpatient setting as well Encourage smoking cessation Quality:SDDC Health Related Social Needs: No Data to Display PFSH All Active Problems (Updated 12/17/23 @ 15:17 by FLAVIA Keith) Chest pain (Acute) Back pain (Acute) Pelvic pain (Acute) Frontal headache (Acute) Tailor's bunionette, right (Acute) UTI (urinary tract infection) (Acute) 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) Arthralgia of right acromioclavicular joint (Acute 02/26/17) Right rotator cuff tendinitis (Acute 12/09/16) Patellar tendon strain (Acute) Patellar tendinitis of left knee (Acute) Pain of left knee after injury (Acute) Lesion of left femur (Acute) Surgical History History of tonsillectomy and adenoidectomy Ligation of fallopian tube Social History Smoking/Tobacco Use Status: Former Tobacco Use Smoking risk assessment performed?: Yes Alcohol Intake: current Alcohol Intake frequency: a few times a month Drug use: Never Substance use type: does not use Do you feel safe at home: Yes Do you feel safe in your relationship?: Yes Female Reproductive History Menstrual control method: permanent sterilization History History 4 Para 4 Hx # Term Pregnancies Multiple births Hx # Pregnancies Ectopic pregnancies AB induced Hx Number of Living Children AB spontaneous Past Pregnancies Del. Date GA/Weeks # Preg Succ Route Wgt Sex Labor Lgth Anesthesia Location Prov Complic 08/01/04 40 No vaginal Female [facility] 05/01/07 40 No vaginal Female [facility] 08/16/09 40 No vaginal Male [facility] 06/07/12 40 No vaginal Female [facility] Discharge Plan Disposition Patient Disposition: Home Condition: Stable Discharge Details Clinical Impression: Back pain, Chest pain Primary Care Provider: Kita lCark ED Provider: Fariha Castaneda Home Meds and New Rx's Prescriptions: New cyclobenzaprine 10 mg tablet 10 mg PO TID PRNQty: 15 0RF Discharge Instructions Instructions: Chest Pain (ED), Back Pain (ED) Additional Instructions: Take the cyclobenzaprine, take 10 mg every 8 hours as needed for pain Ibuprofen every 8 hours You may take Tylenol 650 every 4-6 hours Blood pressure is elevated here, please have rechecked by Dr. Arriaga at your scheduled appointment Please be reevaluated should you have new or worsening complaints Light stretching Your tests today are reassuring including a heart workup and kidney workup Referrals: Kita Clark MD [Primary Care Provider] - Discharge Data Discharge Date/Time-TO BE ENTERED AT DEPARTURE: 12/17/23 15:39
--- OUTSIDE RECORDS SUMMARY | 2023-12-17 15:44 | XMS_ITS | CCD ---
Author Name Unknown Address [address] [place] [address] [id number] Organization Unknown Address [address] [place] [address] [phone] Care Team Providers Care Electrical Maintenance Worker Name Role Phone BRIDGETTE MAR Attending Physician [phone] BRIDGETTE MAR Er Physician 2 [phone] BRYANT Tomlinson Registered Nurse [phone] Vital Signs Vital Sign Value Unit Date/Time Recent/Initial ? BMI (Body Mass Index) 34.96 kg/m^2 11/25/2023 11: 33 Initial VS Weight Measured 185 lbs 11/25/2023 11:33 Ini tial VS Height 61 in 11/25/2023 11:33 Initial VS BSA (Body Surface Area) 1.9 m^2 11/25/2023 1 1:33 Initial VS BP Systolic 139 mmHg 11/25/2023 11:33 Initial VS BP Diastolic 86 mmHg 11/25/2023 11:33 Initia l VS Respiratory Rate 18 bpm 11/25/2023 11:33 In itial VS Heart Rate 84 bpm 11/25/2023 11:33 Initial VS O2 % BldC Oximetry 100 % 11/25/2023 11:33 Initial VS Body Temperature 36.1 degrees 11/25/2023 11:33 In itial VS Allergies Allergy Code Allergy Type Reaction Status AMOXICILLIN 723 Drug allergy SWOLLEN THROAT, SWOLLE N FACE Active Procedures Unknown or Not Available. History of Immunizations Unknown or Not Available. Problems Problem Code Start Date Resolved Date Status Other low back pain [id number] 11/25/2023 Activ e Results Unknown or Not Available. Active Medications Medication Code Dose Units Frequency Route Modificatio n Start Date/Time LIDOCAINE PATCH 5% [id number] 2 PATCH X1 TRANSDERMAL 11/25/19 24 13:10 Medications Administered During Visit Medication Dose Units Frequency Route Date/Time of Last Dose KETOROLAC INJ SDV: 30MG/1ML 60 MG X1 IM 11/25/2023 12:43 Encounters Encounter Diagnosis Diagnosis Code Start Date Low back pain [id number] 11/25/2023 Social History Smoking Status Code Start Date End Date Current every day smoker [id number] 10/27/2006 Patient Decision Aids Unknown or Not Available. Discharge Instructions You were admitted to [facility] on 11/25/2023 11:34 with a principal diagnosis of Low back pain, unspecified You were discharged from [facility] on 11/25/2023 13:41 Should you have any questions prior to discharge, please contact a member of your healthcare team. If you have left the hospital and have any questions, please contact your primary care physician. Chief Complaint and Reason For Visit Chief Complaint Date of Onset BACK INJURY Function Status Unknown or Not Available. Plan of Care Unknown or Not Available. Referral/Transition of Care Unknown or Not Available.
== END 2023-12-17 15:39 | disposition home or self-care (01) ==
PROVIDERS: Emergency Provider Physician Assistant; PCP Family Medicine
DX: M54.50 Low back pain, unspecified (principal); R07.9 Chest pain, unspecified; F17.210 Nicotine dependence, cigarettes, uncomplicated; Z87.891 Personal history of nicotine dependence
CPT/HCPCS: 80053; 81025; 83690; 93005; 99285; J2360; 71046; 74177; 81003; 81015; 84484; 85025; 93010; 99284; J3490

== ENCOUNTER 2023-12-18 19:39 | Emergency (ER) | payer MEDICAID, SELFPAY ==
--- NOTE | 2023-12-18 19:30 | RT.EKG_ITS ---
APPROVED REPORT Exam: Resting ECG Reason for Exam: Chest pain Patient Location: E HR:89 bpm ECG Measurements Heart Rate 89 AXIS AK 163 P 46 QRSd 105 QRS 1 QT 391 T 22 QTc 476 Conclusion Sinus rhythm 89 normal axis no stemi
[2023-12-18 19:44] VITALS: BP 135/94; PULSE 94; RESP 16; O2SAT 100
[2023-12-18 19:47] VITALS: RESP 16
--- NOTE | 2023-12-18 19:57 | W.ED.GENAD ---
Discharge Plan Disposition Patient Disposition: Home Condition: Stable Discharge Details Clinical Impression: Chest pain of uncertain etiology Primary Care Provider: Kita Clark ED Provider: Carlos A Millard Home Meds and New Rx's Prescriptions: Continued cyclobenzaprine 10 mg tablet 10 mg PO TID PRNQty: 15 0RF Patient Comments: pt is prescribed but doesn't like taking them Discharge Instructions Instructions: Chest Pain (ED), Noncardiac Chest Pain (ED) Additional Instructions: You were seen in the emergency department again today for these chest pains and pressures. Your cardiac workup was negative, I also performed a D-dimer test which test for blood clot in the lungs this was also negative. I do not believe your chest pain or pressure is related to your heart, this may be anxiety that, this may be gastritis from acid reflux, this may be pleurisy from the lung irritation due to past smoking or vaping history of this may be musculoskeletal chest pain within the ribs. You should talk with your primary care provider about receiving an echocardiogram and possibly a treadmill stress test in the next 3 months or so but this is a very low risk situation. I am sending you home with a to go bottle of a medicine called hydroxyzine, an antihistamine used for anxiety to trial at home. You can also apply a topical anti-inflammatory gel called Voltaren which is [id number] to the area of pain for relief of musculoskeletal chest pain. Referrals: [facility] [Provider Group] Kita Clark MD [Primary Care Provider] - Discharge Data Discharge Date/Time-TO BE ENTERED AT DEPARTURE: 12/18/23 21:23 HPI General Date/Time Provider Initiated Documentation: 12/18/23 19:55. HPI Narrative: 38 year-old female presents to ED today by POV/ambulating with a chief complaint of chest pressure/pain, ongoing for one week- comes on at rest, feels lightheaded and flush with it- negative workup yesterday in ED, with onset of symptoms again all day today. Quality described as central chest pressure, no radiation to shortness of breath, exertional onset, cough, profuse sweating, syncope. Severity is described as moderate. Palliating factors include nothing specific attempted. Provoking factors include nothing specific. Events leading up to the incident/Associated Symptoms: Patient has no FHx of early cardiac disease, denies anxiety history. Patient not anticoagulated. Related Data Home Medications Medication Instructions Recorded Confirmed cyclobenzaprine 10 mg tablet 10 mg PO TID PRN #15 tabs 12/17/23 12/18/23 Previous Rx's Medication Instructions Recorded cyclobenzaprine 10 mg tablet 10 mg PO TID PRN #15 tabs 12/17/23 Allergies Allergy/AdvReac Type Severity Reaction Status Date / Time amoxicillin [Amoxicillin] Allergy Severe facial Verified 12/17/23 14:04 swelling cefuroxime [From Ceftin] Allergy Unknown Skin Rash Unverified 12/17/23 14:04 hydrocodone bitartrate AdvReac Severe Nausea, Verified 12/17/23 14:04 [From Vicodin] vomiting General Stated Complaint: Chest Pain WADE: 3 Review of Systems All systems reviewed & are unremarkable except as noted in HPI and below Exam Narrative Exam Narrative: GENERAL APPEARANCE: Well-nourished, non-toxic, awake and alert, atraumatic, no acute distress. SKIN: Warm, pink, dry, intact, without rashes/lesions/ulcerations. HEAD: Normocephalic, atraumatic, normal hair distribution for gender/age. EYES: Pupils PERRLA, EOMs intact without nystagmus, normal conjunctiva, no exudates on lids/lashes. ENT: Nares patent, no circumoral cyanosis, no facial swelling NECK: Supple, trachea midline, painless cervical ROM. LUNGS/CHEST: Lungs CTA bilaterally- no rhonchi/rales/wheezes diffusely, non-labored respirations, normal A/P diameter, symmetrical expansion, no chest wall deformity HEART (CV/PV): Regular rate and rhythm without murmur, no peripheral edema, no JVD. ABDOMEN: Soft, non-distended, no guarding, no tenderness. MSK: Normal ROM, no swelling/deformity to bilateral UEs or LEs, moving all extremities without weakness, no cyanosis, spine midline without tenderness, normal curvature. NEURO: Mental Status AAOx4 - alert to person, place, time, events No facial droop, no forehead involvement. Motor: No focal weakness - strength 5/5 in bilateral UEs and LEs, proximal and distal, symmetric. Sensory: sensation intact to light touch globally. Gait normal: patient ambulated without ataxia into ED room. PSYCH: euthymic, cooperative, pleasant, appropriate speech Course Vital Signs Vital signs: Vital Signs Pulse 94 H 12/18/23 19:44 Respiratory Rate 16 12/18/23 19:44 Blood Pressure 135/94 H 12/18/23 19:44 Pulse Oximetry 100 12/18/23 19:44 Pulse 94 H 12/18/23 19:44 Respiratory Rate 16 12/18/23 19:47 Respiratory Effort Normal 12/18/23 19:47 Respiratory Depth Normal 12/18/23 19:47 Respiratory Pattern Normal 12/18/23 19:47 Blood Pressure 135/94 H 12/18/23 19:44 Blood Pressure Position Supine 12/18/23 19:44 Pulse Oximetry 100 12/18/23 19:44 Oxygen Delivery Method Room Air 12/18/23 19:44 Oxygen Flow Rate 0 12/18/23 19:44 Pain Level 5 12/18/23 19:47 Medical Decision Making This dictation utilizes [id number] dictation software and may contain unedited grammatical errors. 38 y/o F presents to ED today with a chief complaint of chest pressure/pain, ongoing for 1 week, seen yesterday in ED with negative workup. Patient endorses lightheadedness and feeling flush/hot when the pain comes on, non-exertional onset, denies cough/shortness of breath. Patients' medical history: negative, otherwise healthy. Family and social history: does use vape, lives with , denies hormonal control use. Pertinent exam findings / vital signs include benign cardiopulmonary exam, benign abdomen, nontoxic. Differential / pathologies of concern include ACS, PE, Costochondritis, Pleurisy, Anxiety. Diagnostic studies of: -CBC, CMP, Trop I, BNP, D-dimer, EKG, Lipase. -D-dimer neg, do not suspect PE -Trop negative with reliable onset and serial values for two days -BNP wnl -Lipase neg -CBC no leukocytosis -EKG sinus rhythm without signs of ischemia, no Q-waves, no dynamic changes from prior -held CXR for unnecessary radiation Interventions of: -hydroxyzine to go. ED Course/Assessment/Plan: Counseled the patient on possible causes of noncardiac chest pain, provided reassurance that this was unlikely any kind of [place] or PE like pathology, counseled on possible pleurisy due to vape use, patient does have a history of indigestion, I counseled her on following up outpatient with a low heart score for baseline cardiac studies and possible primary care management for worsening GERD, counseled on possibility of anxiety with her symptoms and provided hydroxyzine for trial of relief. Strict return criteria for worsening chest pain especially exertional shortness of breath, sweating, any fainting episodes. Findings not consistent with acute coronary syndrome, PE, infectious etiology like pneumonia. Disposition of Chest Pain of Uncertain Etiology. Patient verbalized understanding of the plan and return to ED criteria and engaged in shared decision making. Medical Records Medical records reviewed: Yes I reviewed the patient's medical records. Lab Data Lab results reviewed: Yes I reviewed the patient's lab results. Labs: Laboratory Tests Range/Units 12/18/23 19:48 WBC (4.4-10.8) 10^3/uL 6.79 RBC (3.93-5.22) 10^6/uL 4.14 Hgb (11.2-15.7) g/dL 12.1 Hct (36.0-46.0) % 36.6 MCV (80-95) fL 88 MCH (27.0-33.0) pg 29.2 MCHC (32.0-36.0) % 33.1 RDW (11.7-14.6) % 12.5 Plt Count (130-400) 10^3/uL 310 MPV (8.0-11.0) fL 9.3 Immature Gran % 0.3 Neutrophils % 58.7 Lymphocytes % 32.7 Monocytes % 5.6 Eosinophils % 2.4 Basophils % 0.3 Nucleated RBC % (0.0-0.3) % 0.0 Absolute Neutrophils (1.2-6.7) 10^3/uL 3.99 Absolute Lymphocytes (1.2-3.4) 10^3/uL 2.22 Absolute Monocytes (0.1-0.8) 10^3/uL 0.38 Absolute Eosinophils (0.0-0.7) 10^3/uL 0.16 Absolute Basophils (0.0-0.2) 10^3/uL 0.02 D-Dimer (<500) ng/mlFEU 286 Sodium (136-145) mmol/L 140 Potassium (3.5-5.1) mmol/L 3.5 Chloride (98-107) mmol/L 106 Carbon Dioxide (21.0-32.0) mmol/L 25.1 Anion Gap (3-11) mmol/L 8.9 BUN (7-18) mg/dL 15 Creatinine (0.55-1.02) mg/dL 0.8 Est GFR (CKD-EPI 2020) (mL/min/1.73m2) 97.87 Glucose (74-106) mg/dL 103 Calcium (8.5-10.1) mg/dL 8.7 Total Bilirubin (0.2-1.0) mg/dL 0.2 AST (15-37) U/L 13 L ALT (14-59) U/L 31 Alkaline Phosphatase (46-116) U/L 71 Troponin I (< or =60) ng/L < 50 C-Reactive Protein (<or=0.5) mg/dL < 0.50 NT-Pro-B Natriuret Pep (<300) pg/mL 31 Total Protein (6.4-8.2) g/dL 7.1 Albumin (3.4-5.0) g/dL 4.0 Lipase (16-77) U/L 35 Quality:SDOH Health Related Social Needs: No Data to Display PFSH All Active Problems (Updated 12/18/23 @ 21:08 by FLAVIA Arauz) Chest pain of uncertain etiology (Acute) Chest pain (Acute) Back pain (Acute) Pelvic pain (Acute) Frontal headache (Acute) Tailor's bunionette, right (Acute) UTI (urinary tract infection) (Acute) 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) Arthralgia of right acromioclavicular joint (Acute 02/26/17) Right rotator cuff tendinitis (Acute 12/09/16) Patellar tendon strain (Acute) Patellar tendinitis of left knee (Acute) Pain of left knee after injury (Acute) Lesion of left femur (Acute) Surgical History History of tonsillectomy and adenoidectomy Ligation of fallopian tube Social History Smoking/Tobacco Use Status: Current every day Tobacco Type: e-cigarettes Smoking risk assessment performed?: Yes Alcohol Intake: current Alcohol Intake frequency: a few times a month Drug use: Never Substance use type: does not use Do you feel safe at home: Yes Do you feel safe in your relationship?: Yes Female Reproductive History Menstrual control method: permanent sterilization History History 4 Para 4 Hx # Term Pregnancies Multiple births Hx # Pregnancies Ectopic pregnancies AB induced Hx Number of Living Children AB spontaneous Past Pregnancies Del. Date GA/Weeks # Preg Succ Route Wgt Sex Labor Lgth Anesthesia Location Prov Complic 08/01/04 40 No vaginal Female [facility] 05/01/07 40 No vaginal Female [facility] 08/16/09 40 No vaginal Male [facility] 06/07/12 40 No vaginal Female [facility]
[2023-12-18 20:15] LABS: Abs Immature Grans 0.02 10^3/uL (0.0-0.06); Absolute Basophil Count 0.02 10^3/uL (0.0-0.2); Absolute Eosinophil Count 0.16 10^3/uL (0.0-0.7); Absolute Lymphocyte Count 2.22 10^3/uL (1.2-3.4); Absolute Monocyte Count 0.38 10^3/uL (0.1-0.8); Absolute Neutrophil Count 3.99 10^3/uL (1.2-6.7); Basophils % 0.3; Eosinophils % 2.4; HCT 36.6 % (36.0-46.0); HGB 12.1 g/dL (11.2-15.7); Immature Grans % 0.3; Lymphocytes % 32.7; MCH 29.2 pg (27.0-33.0); MCHC 33.1 % (32.0-36.0); MCV 88 fL (80-95); MPV 9.3 fL (8.0-11.0); Monocytes % 5.6; Neutrophils % 58.7; Platelet Count 310 10^3/uL (130-400); RBC 4.14 10^6/uL (3.93-5.22); RDW 12.5 % (11.7-14.6); RDW-SD 40.3 fL; WBC 6.79 10^3/uL (4.4-10.8)
[2023-12-18 20:37] LABS: ALT 31 U/L (14-59); AST 13 U/L (15-37); Alkaline Phosphatase 71 U/L (46-116); Anion Gap 8.9 mmol/L (3-11); BUN 15 mg/dL (7-18); Bilirubin, Total 0.2 mg/dL (0.2-1.0); CO2 25.1 mmol/L (21.0-32.0); CREATININE 0.8 mg/dL (0.55-1.02); Calcium 8.7 mg/dL (8.5-10.1); Chloride 106 mmol/L (98-107); Estimated GFR 97.87 (mL/min/1.73m2); Glucose 103 mg/dL (74-106); Lipase 35 U/L (16-77); NT-proBNP 31 pg/mL (<300); Potassium 3.5 mmol/L (3.5-5.1); Sodium 140 mmol/L (136-145); Total Protein 7.1 g/dL (6.4-8.2)
[2023-12-18 20:39] LABS: C-Reactive Protein < 0.50 mg/dL (<or=0.5); Troponin I < 50 ng/L (< or =60)
[2023-12-18 20:58] LABS: D-Dimer 286 ng/mlFEU (<500)
[2023-12-18] MEDS: hydrOXYzine HCL 25 MG TAB PO ×2 (21:14→21:22)
== END 2023-12-18 21:23 | disposition home or self-care (01) ==
PROVIDERS: Emergency Provider Physician Assistant; PCP Family Medicine
DX: R07.9 Chest pain, unspecified (principal); F17.290 Nicotine dependence, other tobacco product, uncomplicated
CPT/HCPCS: 36415; 80053; 83690; 93005; 99284; 83880; 84484; 85025; 85379; 86140; 93010; 99283

== ENCOUNTER 2023-12-24 21:30 | Emergency (ER) | payer MEDICAID, SELFPAY ==
--- NOTE | 2023-12-24 21:30 | RT.EKG_ITS ---
APPROVED REPORT Exam: Resting ECG Reason for Exam: chest pain Patient Location: E HR:85 bpm ECG Measurements Heart Rate 85 AXIS AR 153 P 39 QRSd 100 QRS -10 QT 375 T 20 QTc 446 Conclusion Sinus rhythm...normal P axis, V-rate 60- 99 Normal Electrocardiogram
[2023-12-24 21:34] VITALS: BP 133/98; PULSE 85; RESP 26; TEMP 37.6; O2SAT 99
[2023-12-24 21:46] VITALS: RESP 27
--- NOTE | 2023-12-24 22:15 | DI.CT_ITS ---
Exam(s) CT CHEST PE CTA EXAM: CT CHEST PE CTA CLINICAL HISTORY: left chest pain, SOB, eval pe/dissection less like. TECHNIQUE: Imaging Protocol: Axial CT angiography was performed with multi-slice acquisition and mu lti-planar reconstructions as well as axial, coronal and sagittal MIP reconstructions. CONTRAST MATERIAL: Intravenous: Omnipaque 350 Contrast volume:100 ml COMPARISON: CR XR CHEST 2V PA LATERAL from 12/17/2023 FINDINGS: Exam somewhat limited by streak artifact caused by arm positioning. Pulmonary Arteries: No evidence of filling defect to suggest pulmonary emboli. Tracheobronchial tree: No mucous plugging. Mediastinum and [place]: No dominant adenopathy or fluid collection. Pulmonary parenchyma: Mildly limited by expiratory changes. 6 millimeter nodule at right lung base. P resent in 2015 and unchanged. Additional 6 millimeter nodule along anterior right minor fissure. No f ollow-up recommended. (Flori 2017.) No consolidation or dominant measurable mass. Pleura: No effusion or pneumothorax. Heart: The heart is not dilated. No coronary artery calcifications are seen. Aorta: Thoracic aorta non-dilated. No dissection. Upper abdomen: No acute findings. Bones: Unremarkable for age. Tubes, Catheters, and Lines: None Soft tissues: Unremarkable. IMPRESSION: No evidence of pulmonary embolism or other acute abnormality.. RADIATION DOSE DELIVERED: 576.08mGy.cm Total DLP DATA REPOSITORY: All CT scans at this facility are submitted to the National Radiology Data Registry (NRDR) Dose Index Registry (DIR) with the [employer] ([employer]). RADIATION OPTIMIZATION: All CT scans at this facility use at least one of these dose optimization te chniques: automated exposure control; mA and/or kV adjustment per patient size (includes targeted exa ms where dose is matched to clinical indication); or iterative reconstruction.
--- NOTE | 2023-12-24 22:15 | DI.CT_ITS ---
Exam(s) CT BRAIN NECK CTA EXAM: CT BRAIN NECK CTA CLINICAL HISTORY: left face numbness, left chest and neck pain. TECHNIQUE: Imaging Protocol: Axial CT angiography was performed with multi-slice acquisition and mu lti-planar and MIP reconstructions. CONTRAST MATERIAL: Intravenous: Omnipaque 350 Contrast volume:85 mL COMPARISON: CT CT BRAIN CTA from 08/21/[address] ABDOMEN PELVIS W from 12/17/2023 FINDINGS: CT Head W/O and W contrast: Ventricles and Extra axial spaces: Normal in size and morphology for the patient's age. Hemorrhage: None. Cerebral parenchyma: No evidence of acute infarct or mass. Midline shift: None. Brainstem/Cerebellum: No acute findings.. Calvarium: Normal. Visualized Paranasal sinuses/Mastoids: Clear. Soft Tissues: Unremarkable. Enhancement: Normal. CTA Brain W: Internal Carotid Arteries: Petrous: Normal. Cavernous: Normal. Cerebral: Normal. Middle Cerebral Arteries: Right: No aneurysm, occlusion or significant stenosis. Left: No aneurysm, occlusion or significant stenosis. Anterior Cerebral Arteries: Right: No aneurysm, occlusion or significant stenosis. Left: No aneurysm, occlusion or significant stenosis. Posterior cerebral Arteries: Right: No aneurysm, occlusion or significant stenosis. Left: No aneurysm, occlusion or significant stenosis. Vertebral Arteries: Right: No aneurysm, occlusion or significant stenosis. Left: No aneurysm, occlusion or significant stenosis. Basilar Artery: No aneurysm, occlusion or significant stenosis. CTA Neck W: Common Carotid: Right: No dissection, occlusion or significant stenosis. Left: No dissection, occlusion or significant stenosis. External Carotid: Right: No dissection, occlusion or significant stenosis. Left: No dissection, occlusion or significant stenosis. Internal Carotid: Right: Tortuous. No dissection, occlusion or significant stenosis. Left: Tortuous. No dissection, occlusion or significant stenosis. Vertebral Artery: Right: No dissection, occlusion or significant stenosis. Left: No dissection, occlusion or significant stenosis. Lung Apices: Normal. Visualized portions of pulmonary arteries and aorta appear normal. Bones: No acute abnormality. Soft Tissues: Normal. IMPRESSION: 1. CTA brain: Normal CTA examination of the [place]. 2. Head CT: Unremarkable CT Head. 3. CTA neck: Normal CTA examination of the neck. RADIATION DOSE DELIVERED: 1,897.25mGy.cm Total DLP DATA REPOSITORY: All CT scans at this facility are submitted to the National Radiology Data Registry (NRDR) Dose Index Registry (DIR) with the [employer] ([employer]). RADIATION OPTIMIZATION: All CT scans at this facility use at least one of these dose optimization te chniques: automated exposure control; mA and/or kV adjustment per patient size (includes targeted exa ms where dose is matched to clinical indication); or iterative reconstruction.
[2023-12-24] MEDS: Normal Saline 1,000 ML 1000 ML IV (22:33)
[2023-12-24] MEDS: Ondansetron 4 MG/2 ML VIAL IVP (22:33)
[2023-12-24 22:36] LABS: Abs Immature Grans 0.02 10^3/uL (0.0-0.06); Absolute Basophil Count 0.04 10^3/uL (0.0-0.2); Absolute Eosinophil Count 0.13 10^3/uL (0.0-0.7); Absolute Monocyte Count 0.47 10^3/uL (0.1-0.8); Absolute Neutrophil Count 5.04 10^3/uL (1.2-6.7); Basophils % 0.5; Eosinophils % 1.6; HCT 38.5 % (36.0-46.0); HGB 13.3 g/dL (11.2-15.7); Immature Grans % 0.3; Lymphocytes % 27.8; MCH 29.8 pg (27.0-33.0); MCHC 34.5 % (32.0-36.0); MCV 86 fL (80-95); MPV 9.1 fL (8.0-11.0); Monocytes % 5.9; Neutrophils % 63.9; Platelet Count 304 10^3/uL (130-400); RBC 4.47 10^6/uL (3.93-5.22); RDW 12.1 % (11.7-14.6); RDW-SD 38.3 fL
[2023-12-24 22:49] LABS: INR 1.1 (0.9-1.1); PTT Activated 29.4 sec (23.6-32.8); Prothrombin Time 11.2 sec (9.1-11.1)
[2023-12-24 23:00] LABS: ALT 21 U/L (14-59); AST 10 U/L (15-37); Albumin 3.8 g/dL (3.4-5.0); Alkaline Phosphatase 64 U/L (46-116); Anion Gap 10.1 mmol/L (3-11); BUN 10 mg/dL (7-18); Bilirubin, Total 0.4 mg/dL (0.2-1.0); CO2 25.9 mmol/L (21.0-32.0); CREATININE 0.7 mg/dL (0.55-1.02); Calcium 9.2 mg/dL (8.5-10.1); Chloride 104 mmol/L (98-107); Estimated GFR 114.88 (mL/min/1.73m2); Glucose 128 mg/dL (74-106); Magnesium 1.9 mg/dL (1.8-2.4); Potassium 3.4 mmol/L (3.5-5.1); Sodium 140 mmol/L (136-145); Total Protein 7.4 g/dL (6.4-8.2); Troponin I < 50 ng/L (< or =60)
[2023-12-24 23:04] LABS: Lipase 32 U/L (16-77); NT-proBNP 16 pg/mL (<300); TSH (W/Ref FT4) 4.48 uIU/mL (0.36-3.74)
[2023-12-24] MEDS: Normal Saline - Diluent 50 ML VIAL IJ ×2 (23:04→23:07)
[2023-12-24] MEDS: Omnipaque 350 MG/ML 100 ML BTL IJ ×2 (23:06→23:07)
[2023-12-24 23:21] LABS: FREE T4 0.96 ng/dL (0.76-1.46)
--- NOTE | 2023-12-24 23:58 | DI.VRAD_ITS ---
PROCEDURE INFORMATION: Exam: CTA Head With Contrast, Arteriography Exam date and time: 12/24/2023 11:09 PM Age: 38 years old Clinical indication: Other: Left face numbness, left chest and neck pain TECHNIQUE: Imaging protocol: Computed tomographic angiography of the head with contrast. Exam focused on the arteries. 3D rendering (Not supervised by radiologist): MIP and/or 3D reconstructed images were created by the technologist. Contrast material: CATE 350; Contrast volume: 85 ml; Contrast route: INTRAVENOUS (IV); COMPARISON: CT BRAIN CTA 08/21/2021 11:48 AM FINDINGS: ANTERIOR CIRCULATION: Right internal carotid artery: Intracranial segment is patent with no significant stenosis. No aneurysm. Right middle cerebral artery: No occlusion or significant stenosis. No aneurysm. Right anterior cerebral artery: No occlusion or significant stenosis. No aneurysm. Left internal carotid artery: Intracranial segment is patent with no significant stenosis. No aneurysm. Left middle cerebral artery: No occlusion or significant stenosis. No aneurysm. Left anterior cerebral artery: No occlusion or significant stenosis. No aneurysm. POSTERIOR CIRCULATION: Right vertebral artery: No occlusion or significant stenosis. No aneurysm. Left vertebral artery: No occlusion or significant stenosis. No aneurysm. Basilar artery: No occlusion or significant stenosis. No aneurysm. Right posterior cerebral artery: No occlusion or significant stenosis. No aneurysm. Left posterior cerebral artery: No occlusion or significant stenosis. No aneurysm. Brain: No definite mass, mass effect, or midline shift. Cerebral ventricles: No ventriculomegaly. Bones/joints: Unremarkable. No acute fracture. Soft tissues: Unremarkable. IMPRESSION: No large vessel stenosis or occlusion. PROCEDURE INFORMATION: Exam: CTA Neck With Contrast Exam date and time: 12/24/2023 11:09 PM Age: 38 years old Clinical indication: Other: Left face numbness, left chest and neck pain TECHNIQUE: Imaging protocol: Computed tomographic angiography of the neck with contrast. Exam focused on the cervical segments of the vasculature. 3D rendering (Not supervised by radiologist): MIP and/or 3D reconstructed images were created by the technologist. Contrast material: CATE 350; Contrast volume: 85 ml; Contrast route: INTRAVENOUS (IV); COMPARISON: CT BRAIN CTA 08/21/2021 11:48 AM FINDINGS: Right common carotid artery: No stenosis. No dissection or occlusion. Right internal carotid artery: No stenosis of the extracranial segment. No dissection or occlusion. Right external carotid artery: No occlusion or stenosis of the origin. Left common carotid artery: No stenosis. No dissection or occlusion. Left internal carotid artery: No stenosis of the extracranial segment. No dissection or occlusion. Left external carotid artery: No occlusion or stenosis of the origin. Right vertebral artery: No stenosis. No dissection or occlusion. Left vertebral artery: No stenosis. No dissection or occlusion. Soft tissues: Normal. No significant soft tissue swelling. Bones/joints: No acute fracture. IMPRESSION: No stenosis or occlusion. REFERENCES: NASCET CRITERIA. The degree of stenosis in the cervical segment of the internal carotid artery is based on NASCET criteria. Normal is no stenosis. Mild is less than 50% stenosis. Moderate is 50-69% stenosis. Severe is 70% to 99% stenosis. Total occlusion is no detectable patent lumen. Dictated and Authenticated by: Stefan Rey MD. Ordering:CINTIA Strauss MD
--- NOTE | 2023-12-25 00:01 | W.ED.GENAD ---
Discharge Plan Disposition Patient Disposition: Home Condition: Good Discharge Details Clinical Impression: Lung nodule, Chest discomfort Primary Care Provider: Kita Clark ED Provider: Carlos A Schafer Home Meds and New Rx's Prescriptions: No Action cyclobenzaprine 10 mg tablet 10 mg PO TID PRNQty: 15 0RF Patient Comments: pt is prescribed but doesn't like taking them Discharge Instructions Instructions: Chest Pain (ED) Additional Instructions: At this time your laboratory workup has returned very normal and reassuring. There is no evidence of heart attack, blood clot, aortic dissection, carotid artery disease, nerve problems, or other significant abnormality. Your electrolytes are normal. Your chest CT scan does show evidence of 2 small pulmonary nodules. Please follow-up closely with your primary care provider for repeat imaging in the next 6 months to make sure these remained stable in size. As we discussed together, I am concerned that component of this may be secondary to reflux and irritation in your stomach and your esophagus. Please take the antiacid medication as prescribed by your primary care provider today. Please take the other medications that were prescribed by your primary care provider for treatment of potential increased mood/potential anxiety. If you notice any worsening of your symptoms, or any new symptoms such as vomiting, diarrhea, fever, chills, shortness of breath, chest pain, numbness, weakness, or fainting , please return immediately to the emergency department for reevaluation. Please follow up with your primary care provider as soon as possible for reassessment and reevaluation. As always, it was a pleasure participating in your medical care today. Referrals: Kita Clark MD [Primary Care Provider] - [facility] General Date/Time Provider Initiated Documentation: 12/24/23 21:49. HPI Narrative: 38-year-old female with a past medical history of reflux, presents today for complaint of chest pain, left arm pain, numbness in her face on the left and flushing. She has also had episodes of vomiting intermittently. Patient has had a few episodes similar to this in the past few weeks and has had few workups with no significant abnormalities noted. Patient did visit her PCP just the other day and she was prescribed anxiety medications and beta-juan and antiacid medications. Patient states that she just filled the medications today, and has not started taking them yet. She states that the symptoms again began today, with left-sided tingling in her face, as well as some mild chest tightness for the last week, and mild pain in her left arm. She does also admit to mild shortness of breath. Questionable exertional component. She does vape but she denies tobacco use currently. She denies any pleuritic chest pain. No recent long trips surgeries or procedures. She also admits to few episodes of vomiting. She feels that whenever she eats she will have some intermittent vomiting. She denies any blood or hematemesis. Mild epigastric achiness but no current abdominal pain otherwise. Related Data Home Medications Medication Instructions Recorded Confirmed cyclobenzaprine 10 mg tablet 10 mg PO TID PRN #15 tabs 12/17/23 12/18/23 Previous Rx's Medication Instructions Recorded cyclobenzaprine 10 mg tablet 10 mg PO TID PRN #15 tabs 12/17/23 Allergies Allergy/AdvReac Type Severity Reaction Status Date / Time amoxicillin [Amoxicillin] Allergy Severe facial Verified 12/17/23 14:04 swelling cefuroxime [From Ceftin] Allergy Unknown Skin Rash Unverified 12/17/23 14:04 hydrocodone bitartrate AdvReac Severe Nausea, Verified 12/17/23 14:04 [From Vicodin] vomiting General Stated Complaint: Chest Pain WADE: 3 Review of Systems All systems reviewed & are unremarkable except as noted in HPI and below Exam Narrative Exam Narrative: 1.Const: Well-nourished, Well-developed, appearing stated age 2.Eyes: PERRL, no conjunctival injection, and symmetrical lids. 3.ENT: Atraumatic external nose and ears. Moist MM. Neck: Symmetric, trachea midline, No thyromegaly. 4.CVS: +S1/S2, No murmurs or gallops. Peripheral pulses 2+ and equal in all extremities. Brisk capillary refill in all extremities. 5.RESP: Unlabored respiratory effort. Clear to auscultation bilaterally. No wheezes rales or rhonchi 6.GI: Soft, Nontender/Nondistended, No hepatosplenomegaly. No guarding or rebound. 7.MSK: Normocephalic/Atraumatic, Extremities w/o deformity or ttp No cyanosis or clubbing, Normal movement of all extremities 8.Skin: Warm, Dry. No rashes or lesions. No rash on the face or neck. No evidence of shingles. No rash on the chest. 9.Neuro: assistant designer II-XII grossly intact. Sensation grossly intact, no focal neurologic deficits. All 6 cardinal planes of vision are fully intact. No evidence of rotatory or vertical nystagmus. The patient demonstrated a normal [id number], good dexterity. There was no evidence of dysdiadochokinesia. Patient was able to ambulate without difficulty. There was no wide-based gait. Romberg testing was normal. Lnpv-ct-[id number] testing was normal. Sensation was intact bilaterally as well as muscle strength bilaterally for all extremities. Patient was able to verbalize butter cup with no slurring, or miss pronunciation. 10.Psych: (AAO) x3. Appropriate mood and affect Course Vital Signs Vital signs: Vital Signs Temperature 37.6 C H 12/24/23 21:34 Pulse 85 12/24/23 21:34 Respiratory Rate 26 H 12/24/23 21:34 Blood Pressure 133/98 H 12/24/23 21:34 Pulse Oximetry 99 12/24/23 21:34 Temperature 37.6 C H 12/24/23 21:34 Temperature Source Temporal Artery Scan 12/24/23 21:34 Pulse 85 12/24/23 21:34 Respiratory Rate 27 H 12/24/23 21:46 Respiratory Effort Normal, Non-Labored 12/24/23 21:46 Respiratory Depth Normal 12/24/23 21:46 Respiratory Pattern Tachypnea 12/24/23 21:46 Blood Pressure 133/98 H 12/24/23 21:34 Blood Pressure Position Sitting 12/24/23 21:34 Pulse Oximetry 99 12/24/23 21:34 Oxygen Delivery Method Room Air 12/24/23 21:34 Oxygen Flow Rate 0 12/24/23 21:34 Pain Level 7 12/24/23 21:34 Lab/Test Results Lab/Test Results: Laboratory Tests Range/Units 12/24/23 22:31 WBC (4.4-10.8) 10^3/uL 7.90 RBC (3.93-5.22) 10^6/uL 4.47 Hgb (11.2-15.7) g/dL 13.3 Hct (36.0-46.0) % 38.5 MCV (80-95) fL 86 MCH (27.0-33.0) pg 29.8 MCHC (32.0-36.0) % 34.5 RDW (11.7-14.6) % 12.1 Plt Count (130-400) 10^3/uL 304 MPV (8.0-11.0) fL 9.1 Immature Gran % 0.3 Neutrophils % 63.9 Lymphocytes % 27.8 Monocytes % 5.9 Eosinophils % 1.6 Basophils % 0.5 Nucleated RBC % (0.0-0.3) % 0.0 Absolute Neutrophils (1.2-6.7) 10^3/uL 5.04 Absolute Lymphocytes (1.2-3.4) 10^3/uL 2.20 Absolute Monocytes (0.1-0.8) 10^3/uL 0.47 Absolute Eosinophils (0.0-0.7) 10^3/uL 0.13 Absolute Basophils (0.0-0.2) 10^3/uL 0.04 PT (9.1-11.1) sec 11.2 H INR (0.9-1.1) 1.1 APTT (23.6-32.8) sec 29.4 Sodium (136-145) mmol/L 140 Potassium (3.5-5.1) mmol/L 3.4 L Chloride (98-107) mmol/L 104 Carbon Dioxide (21.0-32.0) mmol/L 25.9 Anion Gap (3-11) mmol/L 10.1 BUN (7-18) mg/dL 10 Creatinine (0.55-1.02) mg/dL 0.7 Est GFR (CKD-EPI 2020) (mL/min/1.73m2) 114.88 Glucose (74-106) mg/dL 128 H Calcium (8.5-10.1) mg/dL 9.2 Magnesium (1.8-2.4) mg/dL 1.9 Total Bilirubin (0.2-1.0) mg/dL 0.4 AST (15-37) U/L 10 L ALT (14-59) U/L 21 Alkaline Phosphatase (46-116) U/L 64 Troponin I (< or =60) ng/L < 50 NT-Pro-B Natriuret Pep (<300) pg/mL 16 Total Protein (6.4-8.2) g/dL 7.4 Albumin (3.4-5.0) g/dL 3.8 Lipase (16-77) U/L 32 TSH (0.36-3.74) uIU/mL 4.48 H Free T4 (0.76-1.46) ng/dL 0.96 Medical Decision Making 38-year-old female with a past medical history of reflux, presents today for complaint of chest pain, left arm pain, numbness in her face on the left and flushing. She has also had episodes of vomiting intermittently. Patient has had a few episodes similar to this in the past few weeks and has had few workups with no significant abnormalities noted. Patient did visit her PCP just the other day and she was prescribed anxiety medications and beta-juan and antiacid medications. Patient states that she just filled the medications today, and has not started taking them yet. She states that the symptoms again began today, with left-sided tingling in her face, as well as some mild chest tightness for the last week, and mild pain in her left arm. She does also admit to mild shortness of breath. Questionable exertional component. She does vape but she denies tobacco use currently. She denies any pleuritic chest pain. No recent long trips surgeries or procedures. She also admits to few episodes of vomiting. She feels that whenever she eats she will have some intermittent vomiting. She denies any blood or hematemesis. Mild epigastric achiness but no current abdominal pain otherwise. Physical exam demonstrates a well-appearing female, no rash to suggest shingles. No reproducible pain. No neurologic deficits. Normal neurologic assessment. Pulses are equal bilaterally. Lung sounds are clear. Mild epigastric achiness but no pain. No guarding or rebound. Review of previous workups demonstrate benign laboratory workups, no evidence of ACS. Symptoms/differential include reflux, esophagitis, anxiety, but also on the differential includes dissection, carotid artery dysfunction or stenosis or dissection, stroke less likely. She has had a few previous negative workups, but no imaging evaluating for these etiologies, we will look further at these assessments. Will get a lipase to evaluate for pancreatitis. Will monitor closely and reassess. 12:[address] imaging of the head neck chest negative for acute process or stroke per radiology. There 2 subcentimeter pulmonary nodules but no other significant abnormality. Will recommend continued follow-up for these in 6 months. Troponin normal, electrolytes normal, no white count bandemia or left shift. Thyroid function demonstrates a slightly elevated TSH, but normal free T4. With no evidence of acute life-threatening etiology, with a benign EKG, I do not see any clinical evidence of acute life-threatening etiology such as ACS, dissection, PE, Boerhaave's or Aury-Jensen, severe pancreatitis or other abnormality. Differential remains higher for postviral neuralgia, gastritis and esophagitis, or muscle spasm. Will recommend bland diet, recommend taking the medications that were prescribed by her PCP, and close follow-up. Discussed red flags which to return. Patient stable for discharge. I have extensively reviewed the treatment plan and discharge instructions with the patient. I have addressed all patient concerns at this time. The patient was made aware of what symptoms to monitor for that would warrant a return to the emergency department. Discussed the plan with the patient, they demonstrate verbal understanding and agreement with our assessment and plan at this time. The documentation in this chart was dictated using [employer] dictation software. Please excuse any dictation errors. FINDINGS: Pulmonary arteries: Normal. No pulmonary emboli. Aorta: Unremarkable. No aortic aneurysm. No aortic dissection. Lungs: There are 2 right lung pulmonary nodules, each measuring approximately 6.5 mm. One is located along the anterior minor fissure and another in the posterolateral right lung base. Pleural spaces: Unremarkable. No pneumothorax. No pleural effusion. Heart: Unremarkable. No cardiomegaly. No pericardial effusion. Lymph nodes: Unremarkable. No enlarged lymph nodes. Bones/joints: Unremarkable. No acute fracture. Soft tissues: Unremarkable. IMPRESSION: 1. No evidence of pulmonary embolus, aortic abnormality or other acute pathology in the chest 2. There are 2 subcentimeter pulmonary nodules each measuring 6.5 mm in the right lung as described. For patients at low risk (minimal or absent history of smoking and of other known risk factors), recommend CT Chest at 3-6 months, then consider CT Chest at 18-24 months. For patients at high risk (history of smoking or of other known risk factors), recommend CT Chest at 3-6 months, then CT Chest at 18-24 months. (Reference: Joel) References: Joel Marie, et al. Guidelines for Management of Incidental Pulmonary Nodules Detected on CT Images: From the Fleischner Society 2017. Radiology. 2017;284(1):228-243. Thank you for allowing us to participate in the care of your patient. Dictated and Authenticated by: Hong Barrientos MD 12/25/2023 12:03 AM Eastern Time ([place] & [place]) FINDINGS: ANTERIOR CIRCULATION: Right internal carotid artery: Intracranial segment is patent with no significant stenosis. No aneurysm. Right middle cerebral artery: No occlusion or significant stenosis. No aneurysm. Right anterior cerebral artery: No occlusion or significant stenosis. No aneurysm. Left internal carotid artery: Intracranial segment is patent with no significant stenosis. No aneurysm. Left middle cerebral artery: No occlusion or significant stenosis. No aneurysm. Left anterior cerebral artery: No occlusion or significant stenosis. No aneurysm. POSTERIOR CIRCULATION: Right vertebral artery: No occlusion or significant stenosis. No aneurysm. Left vertebral artery: No occlusion or significant stenosis. No aneurysm. Basilar artery: No occlusion or significant stenosis. No aneurysm. Right posterior cerebral artery: No occlusion or significant stenosis. No aneurysm. Left posterior cerebral artery: No occlusion or significant stenosis. No aneurysm. Brain: No definite mass, mass effect, or midline shift. Cerebral ventricles: No ventriculomegaly. Bones/joints: Unremarkable. No acute fracture. Soft tissues: Unremarkable. IMPRESSION: No large vessel stenosis or occlusion. FINDINGS: Right common carotid artery: No stenosis. No dissection or occlusion. Right internal carotid artery: No stenosis of the extracranial segment. No dissection or occlusion. Right external carotid artery: No occlusion or stenosis of the origin. Left common carotid artery: No stenosis. No dissection or occlusion. Left internal carotid artery: No stenosis of the extracranial segment. No dissection or occlusion. Left external carotid artery: No occlusion or stenosis of the origin. Right vertebral artery: No stenosis. No dissection or occlusion. Left vertebral artery: No stenosis. No dissection or occlusion. Soft tissues: Normal. No significant soft tissue swelling. Bones/joints: No acute fracture. IMPRESSION: No stenosis or occlusion. REFERENCES: NASCET CRITERIA. The degree of stenosis in the cervical segment of the internal carotid artery is based on NASCET criteria. Normal is no stenosis. Mild is less than 50% stenosis. Moderate is 50- 69% stenosis. Severe is 70% to 99% stenosis. Total occlusion is no detectable patent lumen. Thank you for allowing us to participate in the care of your patient. 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) Arthralgia of right acromioclavicular joint (Acute 02/26/17) Right rotator cuff tendinitis (Acute 12/09/16) Patellar tendon strain (Acute) Patellar tendinitis of left knee (Acute) Pain of left knee after injury (Acute) Lesion of left femur (Acute) Surgical History History of tonsillectomy and adenoidectomy Ligation of fallopian tube Social History Smoking/Tobacco Use Status: Current every day Tobacco Type: e-cigarettes Smoking risk assessment performed?: Yes Alcohol Intake: current Alcohol Intake frequency: a few times a month Drug use: Never Substance use type: does not use Housing: house Do you feel safe at home: Yes Do you feel safe in your relationship?: Yes Female Reproductive History Menstrual control method: permanent sterilization History History 4 Para 4 Hx # Term Pregnancies Multiple births Hx # Pregnancies Ectopic pregnancies AB induced Hx Number of Living Children AB spontaneous Past Pregnancies Del. Date GA/Weeks # Preg Succ Route Wgt Sex Labor Lgth Anesthesia Location Prov Complic 08/01/04 40 No vaginal Female [facility] 05/01/07 40 No vaginal Female [facility] 08/16/09 40 No vaginal Male [facility] 06/07/12 40 No vaginal Female [facility]
--- NOTE | 2023-12-25 00:03 | DI.VRAD_ITS ---
PROCEDURE INFORMATION: Exam: CTA Chest With Contrast Exam date and time: 12/24/2023 11:19 PM Age: 38 years old Clinical indication: Pain; Shortness of breath; Chest pressure; Additional info: Left chest pain, SOB, eval pe/dissection less like TECHNIQUE: Imaging protocol: Computed tomographic angiography of the chest with contrast. Exam focused on the arteries. 3D rendering (Not supervised by radiologist): MIP and/or 3D reconstructed images were created by the technologist. Contrast material: OMNI 350; Contrast volume: 100 ml; Contrast route: INTRAVENOUS (IV); COMPARISON: CR XR CHEST 2V PA LATERAL 12/17/2023 2:16 PM FINDINGS: Pulmonary arteries: Normal. No pulmonary emboli. Aorta: Unremarkable. No aortic aneurysm. No aortic dissection. Lungs: There are 2 right lung pulmonary nodules, each measuring approximately 6.5 mm. One is located along the anterior minor fissure and another in the posterolateral right lung base. Pleural spaces: Unremarkable. No pneumothorax. No pleural effusion. Heart: Unremarkable. No cardiomegaly. No pericardial effusion. Lymph nodes: Unremarkable. No enlarged lymph nodes. Bones/joints: Unremarkable. No acute fracture. Soft tissues: Unremarkable. IMPRESSION: 1. No evidence of pulmonary embolus, aortic abnormality or other acute pathology in the chest 2. There are 2 subcentimeter pulmonary nodules each measuring 6.5 mm in the right lung as described. For patients at low risk (minimal or absent history of smoking and of other known risk factors), recommend CT Chest at 3-6 months, then consider CT Chest at 18-24 months. For patients at high risk (history of smoking or of other known risk factors), recommend CT Chest at 3-6 months, then CT Chest at 18-24 months. (Reference: Joel) References: Joel Marie, et al. Guidelines for Management of Incidental Pulmonary Nodules Detected on CT Images: From the Fleischner Society 2017. Radiology. 2017;284(1):228-243. Dictated and Authenticated by: Hong Barrientos MD. Ordering:CINTIA Strauss MD
--- NOTE | 2023-12-27 07:18 | NUR.NOTE ---
Accessed chart to determine orders for EKG and to determine whether or not one needs to be cancelled. Duplicate order cancelled. Nursing Note:
== END 2023-12-25 01:16 | disposition home or self-care (01) ==
PROVIDERS: Emergency Provider Student in an Organized Health Care Education/Training Program; PCP Family Medicine
DX: R07.9 Chest pain, unspecified (principal); K21.9 Gastro-esophageal reflux disease without esophagitis; R91.8 Other nonspecific abnormal finding of lung field; F17.290 Nicotine dependence, other tobacco product, uncomplicated
CPT/HCPCS: 70496; 70498; 71275; 80053; 83690; 93005; 96361; 96374; 99285; 83735; 83880; 84439; 84443; 84484; 85025; 85610; 85730; 93010; 99284; J2405; J3490

== ENCOUNTER 2024-01-10 20:50 | Emergency (ER) | payer MEDICAID, SELFPAY ==
--- NOTE | 2024-01-10 20:45 | RT.EKG_ITS ---
APPROVED REPORT Exam: Resting ECG Reason for Exam: chest pain Patient Location: E HR:80 bpm ECG Measurements Heart Rate 80 AXIS CO 169 P 48 QRSd 101 QRS 37 QT 400 T 13 QTc 461 Conclusion Sinus rhythm...normal P axis, V-rate 60- 99 sinus rhtyhm, normal axis, normal intervals, non ischemic
[2024-01-10 20:56] VITALS: BP 167/107; PULSE 81; RESP 18; TEMP 37.1; O2SAT 100
[2024-01-10 21:03] VITALS: RESP 18
[2024-01-10 21:31] VITALS: PULSE 77; O2SAT 100
[2024-01-10 21:40] VITALS: PULSE 84
[2024-01-10] MEDS: Propranolol 10 MG TAB PO (21:40)
--- NOTE | 2024-01-10 21:41 | W.ED.GENAD ---
Discharge Plan Disposition Patient Disposition: Home Condition: Stable Discharge Details Clinical Impression: Chest pain Primary Care Provider: Kita Clark ED Provider: Fariha Castaneda Home Meds and New Rx's Prescriptions: Continued lorazepam 0.5 mg tablet 0.5 mg PO BID Patient Comments: TAKE 1 TABLET BY MOUTH TWICE DAILY NEEDED escitalopram oxalate 10 mg tablet 10 mg PO DAILY Patient Comments: TAKE 1 TABLET BY MOUTH EVERY DAY omeprazole 20 mg capsule,delayed release(DR/EC) 20 mg PO ONCE Patient Comments: TAKE 1 CAPSULE BY MOUTH DAILY propranolol 10 mg tablet 10 mg PO BID Patient Comments: TAKE 1 TO 2 TABLETS BY MOUTH TWICE DAILY NEEDED FOR ACUTE ANXIETY Discharge Instructions Instructions: Chest Pain (ED) Additional Instructions: Continue taking your prescribed medication Follow-up with Dr. Clark, I am ordering a stress test on you Your doctor will need to order a Holter monitor at their discretion At this time I have low suspicion for this is your heart I recommend taking her propranolol twice daily and your Ativan as prescribed as well Your tests have been reassuring over the past several months Please return should you develop dramatic change in your symptoms 6 mm lung nodule, right lung (unchanged from prior ct), follow-up [facility] pcp Referrals: Kita Clark MD [Primary Care Provider] - HPI General Date/Time Provider Initiated Documentation: 01/10/24 20:51. HPI Narrative: This 38-year-old female presents with report of chest pain. She states it has been intermittent for the past 3 days. Denies fever or chills. Denies calf pain or swelling, history of coagulopathy. Denies known early coronary artery disease history in family. Vapes daily. Denies any alcohol consumption or illicit drug use. Denies any chance of . States today when she went up the stairs the pain that she had been experiencing all day became worse which scared her. She states it radiates into her left arm. She states she has had several workups for similar presentation. She states was recently started on propranolol and Ativan to help with her symptoms. She states it is not helping. Related Data Home Medications Medication Instructions Recorded Confirmed escitalopram oxalate 10 mg tablet 10 mg PO DAILY 01/10/24 01/10/24 lorazepam 0.5 mg tablet 0.5 mg PO BID 01/10/24 01/10/24 omeprazole 20 mg capsule,delayed 20 mg PO ONCE 01/10/24 01/10/24 release propranolol 10 mg tablet 10 mg PO BID 01/10/24 01/10/24 Allergies Allergy/AdvReac Type Severity Reaction Status Date / Time amoxicillin [Amoxicillin] Allergy Severe facial Verified 01/10/24 21:00 swelling cefuroxime [From Ceftin] Allergy Unknown Skin Rash Unverified 01/10/24 21:00 hydrocodone bitartrate AdvReac Severe Nausea, Verified 01/10/24 21:00 [From Vicodin] vomiting General Stated Complaint: Chest Pain WADE: 3 Course Vital Signs Vital signs: Vital Signs Temperature 37.1 C 01/10/24 20:56 Pulse 81 01/10/24 20:56 Respiratory Rate 18 01/10/24 20:56 Blood Pressure 167/107 H 01/10/24 20:56 Pulse Oximetry 100 01/10/24 20:56 Temperature 37.1 C 01/10/24 20:56 Temperature Source Oral 01/10/24 20:56 Pulse 81 01/10/24 20:56 Respiratory Rate 18 01/10/24 21:03 Respiratory Effort Normal 01/10/24 21:03 Respiratory Depth Normal 01/10/24 21:03 Respiratory Pattern Normal 01/10/24 21:03 Blood Pressure 167/107 H 01/10/24 20:56 Blood Pressure Position Sitting 01/10/24 20:56 Pulse Oximetry 100 01/10/24 20:56 Oxygen Delivery Method Room Air 01/10/24 20:56 Oxygen Flow Rate 0 01/10/24 20:56 Medical Decision Making 38-year-old female presents with chest pain with radiation to her arm, has had this for presentations similar to this with negative cardiac and pulmonary workups She is in no acute distress, her blood pressure is elevated although she does appear anxious, I did give her her 10 mg of propranolol which she did not take today, she declined taking Ativan at this time She is very concerned that this is her heart although her heart score is a 2 and she is relatively low risk with numerous negative troponins on prior visits, my suspicion this is cardiac is low, however I did order an outpatient treadmill stress test She would also likely benefit for Holter monitor for completeness at the discretion of her primary care doctor Her blood pressure is elevated however she seems quite anxious and will need recheck in the outpatient setting Low suspicion clinically for PE, negative CT chest performed on 24 December Has outpatient follow-up, further investigation outpatient Return precautions reviewed and patient expressed understanding Quality:SDOH Health Related Social Needs: No Data to Display PFSH All Active Problems (Updated 01/10/24 @ 22:10 by FLAVIA Keith) Chest pain (Acute) Chest discomfort (Acute) Lung nodule (Acute) Chest pain of uncertain etiology (Acute) Chest pain (Acute) Back pain (Acute) Pelvic pain (Acute) Frontal headache (Acute) Jonathan's hiwottte, right (Acute) UTI (urinary tract infection) (Acute) 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) Arthralgia of right acromioclavicular joint (Acute 02/26/17) Right rotator cuff tendinitis (Acute 12/09/16) Patellar tendon strain (Acute) Patellar tendinitis of left knee (Acute) Pain of left knee after injury (Acute) Lesion of left femur (Acute) Surgical History History of tonsillectomy and adenoidectomy Ligation of fallopian tube Social History Smoking/Tobacco Use Status: Current every day Tobacco Type: e-cigarettes Smoking risk assessment performed?: Yes Alcohol Intake: current Alcohol Intake frequency: a few times a month Drug use: Never Substance use type: does not use Housing: house Do you feel safe at home: Yes Do you feel safe in your relationship?: Yes Female Reproductive History Menstrual control method: permanent sterilization History History 4 Para 4 Hx # Term Pregnancies Multiple births Hx # Pregnancies Ectopic pregnancies AB induced Hx Number of Living Children AB spontaneous Past Pregnancies Del. Date GA/Weeks # Preg Succ Route Wgt Sex Labor Lgth Anesthesia Location Prov Complic 08/01/04 40 No vaginal Female [facility] 05/01/07 40 No vaginal Female [facility] 08/16/09 40 No vaginal Male [facility] 06/07/12 40 No vaginal Female [facility]
[2024-01-10 22:05] LABS: Troponin I < 50 ng/L (< or =60)
--- NOTE | 2024-01-10 22:14 | NUR.NOTE ---
faxed requistion for stress test Nursing Note:
[2024-01-10 22:30] VITALS: BP 165/111
[2024-01-10] MEDS: Prochlorperazine 10 MG TAB PO (22:41)
== END 2024-01-10 22:54 | disposition home or self-care (01) ==
PROVIDERS: Emergency Provider Physician Assistant; PCP Family Medicine
DX: R07.9 Chest pain, unspecified (principal); R11.0 Nausea; F17.290 Nicotine dependence, other tobacco product, uncomplicated
CPT/HCPCS: 93005; 99284; 84484; 93010

== ENCOUNTER 2024-01-19 18:18 | Outpatient (REF) | payer MEDICAID, SELFPAY ==
[2024-01-19 19:39] LABS: TSH (W/Ref FT4) 1.43 uIU/mL (0.36-3.74)
== END 2024-01-19 18:19 | disposition home or self-care (01) ==
LOC: NCHCN 18:18
PROVIDERS: PCP Family Medicine; Visit Provider Family Medicine
DX: R00.2 Palpitations (principal)
CPT/HCPCS: 84443

== ENCOUNTER → 2024-01-21 02:33 | Outpatient (CLI) | payer MEDICAID, SELFPAY ==
--- NOTE | 2024-01-21 08:00 | DI.US_ITS ---
Exam(s) US ABDOMEN EXAM: US ABDOMEN CLINICAL HISTORY: POST PRANDIAL VOMITING,PAIN LT UPPER BACK, R11.10 TECHNIQUE: Ultrasound abdomen performed using standard protocol. COMPARISON: CT CT ABDOMEN PELVIS W from 12/17/[address] CHEST PE CTA from 12/24/2023 FINDINGS: LIVER: Normal size and echogenicity. No focal liver lesions are seen. GALLBLADDER: No evidence of cholelithiasis. No evidence of wall thickening. No pericholecystic fluid identified. GALLOWAY'S SIGN: Negative. BILIARY SYSTEM: No intrahepatic or extrahepatic biliary ductal dilation. KIDNEYS: Kidneys are symmetric in size. No evidence of renal calculi. No evidence of hydronephrosis. No renal mass or cyst identified. PANCREAS: Normal where visualized. SPLEEN: Not enlarged. ABDOMINAL AORTA AND IVC: Visualized portions normal caliber. ASCITES: None seen. IMPRESSION: Normal sonographic appearance of the upper abdomen. DATA REPOSITORY:
== END ==
PROVIDERS: PCP Family Medicine; Visit Provider Family Medicine
DX: R11.10 Vomiting, unspecified (principal); M54.89 Other dorsalgia
CPT/HCPCS: 76700

== ENCOUNTER 2024-01-29 08:37 | Outpatient (RCR) | payer MEDICAID, SELFPAY ==
--- NOTE | 2024-01-29 08:45 | HOLTER_ITS ---
APPROVED REPORT Conclusion This is a 48-hour Holter monitor Rhythm throughout was sinus with an average heart rate of 82. Minimum 59, maximum 136 There was one isolated atrial premature beat A total of 34 isolated PVCs were seen There was no atrial fibrillation, no high-grade AV block, no pauses greater than 3 seconds
== END 2024-02-24 23:59 | disposition home or self-care (01) ==
LOC: CARDOPNVT 08:37
PROVIDERS: PCP Family Medicine; Visit Provider Internal Medicine Cardiovascular Disease
DX: R00.2 Palpitations (principal); I49.3 Ventricular premature depolarization
CPT/HCPCS: 93225; 93226

== ENCOUNTER 2024-01-30 18:15 | Outpatient (REF) | payer MEDICAID, SELFPAY ==
[2024-01-30 18:29] LABS: Abs Immature Grans 0.01 10^3/uL (0.0-0.06); Absolute Basophil Count 0.04 10^3/uL (0.0-0.2); Absolute Eosinophil Count 0.07 10^3/uL (0.0-0.7); Absolute Lymphocyte Count 1.79 10^3/uL (1.2-3.4); Basophils % 0.6; Eosinophils % 1.1; HCT 39.5 % (36.0-46.0); HGB 13.3 g/dL (11.2-15.7); Immature Grans % 0.2; Lymphocytes % 27.1; MCH 30.1 pg (27.0-33.0); MCHC 33.7 % (32.0-36.0); MCV 89 fL (80-95); MPV 9.4 fL (8.0-11.0); Monocytes % 4.5; Neutrophils % 66.5; Platelet Count 330 10^3/uL (130-400); RBC 4.42 10^6/uL (3.93-5.22); RDW 12.4 % (11.7-14.6); RDW-SD 41.1 fL; WBC 6.61 10^3/uL (4.4-10.8)
[2024-01-30 18:31] LABS: ESR 4 mm/hr (0-20)
[2024-01-30 18:38] LABS: ALT 29 U/L (14-59); AST 14 U/L (15-37); Albumin 4.1 g/dL (3.4-5.0); Alkaline Phosphatase 79 U/L (46-116); Anion Gap 12.4 mmol/L (3-11); BUN 8 mg/dL (7-18); Bilirubin, Total 0.4 mg/dL (0.2-1.0); CO2 23.6 mmol/L (21.0-32.0); CREATININE 0.6 mg/dL (0.55-1.02); Calcium 8.8 mg/dL (8.5-10.1); Chloride 104 mmol/L (98-107); Estimated GFR 118.49 (mL/min/1.73m2); Glucose 87 mg/dL (74-106); Potassium 3.7 mmol/L (3.5-5.1); Sodium 140 mmol/L (136-145); Total Protein 7.5 g/dL (6.4-8.2)
[2024-01-30 18:39] LABS: C-Reactive Protein < 0.50 mg/dL (<or=0.5)
[2024-01-30 18:55] LABS: Hemoglobin A1C 4.9 % (<5.7)
[2024-02-02 10:50] LABS: Lyme Ab w Rflx to Lyme Confirm Negative (Negative)
[2024-02-03 15:25] LABS: Anaplasma phagocytophilum Negative (Negative); B. miyamotoi PCR Negative (Negative); Babesia divergens/MO-1 Negative (Negative); Babesia duncani Negative (Negative); Babesia microti Negative (Negative); Ehrlichia chaffeensis Negative (Negative); Ehrlichia ewingii/canis Negative (Negative); Ehrlichia muris eauclairensis Negative (Negative)
== END 2024-01-30 18:16 | disposition home or self-care (01) ==
LOC: NCHCN 18:15
PROVIDERS: PCP Family Medicine; Visit Provider Student in an Organized Health Care Education/Training Program
DX: M79.602 Pain in left arm (principal); R00.2 Palpitations; R73.9 Hyperglycemia, unspecified
CPT/HCPCS: 80053; 85652; 87798; 83036; 85025; 86140; 86618

== ENCOUNTER 2024-01-31 21:16 | Emergency (ER) | payer MEDICAID, SELFPAY ==
[2024-01-31] VITALS (21 sets, daily range): BP systolic 33–162; BP diastolic 11–112; PULSE 82–112; RESP 12–24; TEMP 36.6–36.9; O2SAT 80–100
--- NOTE | 2024-01-31 21:15 | RT.EKG_ITS ---
APPROVED REPORT Exam: Resting ECG Reason for Exam: syncopal episode Patient Location: E HR:112 bpm ECG Measurements Heart Rate 112 AXIS ID 173 P 43 QRSd 102 QRS -15 QT 353 T 20 QTc 482 Conclusion Sinus tachycardia...rate> 99 Probable left atrial enlargement...P >50mS, <-0.10mV V1 Low voltage, precordial leads...precordial leads <1.0mV Left ventricular hypertrophy...multiple LVH criteria appropriate intervals no st segment or t wave abnormalities to suggest occlusive [place]
--- NOTE | 2024-01-31 22:07 | W.ED.GENAD ---
Discharge Plan Disposition Patient Disposition: Home Condition: Good Discharge Details Clinical Impression: Pre-syncope, Chest pain Primary Care Provider: Kita Clark ED Provider: Hyun Espinosa Home Meds and New Rx's Prescriptions: Continued lorazepam 0.5 mg tablet 0.5 mg PO BID Patient Comments: TAKE 1 TABLET BY MOUTH TWICE DAILY NEEDED escitalopram oxalate 10 mg tablet 10 mg PO DAILY Patient Comments: TAKE 1 TABLET BY MOUTH EVERY DAY omeprazole 20 mg capsule,delayed release(DR/EC) 20 mg PO ONCE Patient Comments: TAKE 1 CAPSULE BY MOUTH DAILY propranolol 10 mg tablet 10 mg PO BID Patient Comments: TAKE 1 TO 2 TABLETS BY MOUTH TWICE DAILY NEEDED FOR ACUTE ANXIETY cyclobenzaprine 10 mg tablet Patient Comments: TAKE ONE TABLET BY MOUTH THREE TIMES A DAY NEEDED clindamycin HCl 300 mg capsule Patient Comments: TAKE 1 CAPSULE BY MOUTH THREE TIMES A DAY FOR 7 DAYS metoprolol succinate 50 mg tablet extended release 24 hr PO Patient Comments: TAKE 1 TABLET BY MOUTH EVERY DAY hydroxyzine HCl 10 mg tablet Patient Comments: TAKE 1 TO 2 TABLETS BY MOUTH TWICE DAILY NEEDED FOR ANXIETY Discharge Instructions Instructions: Chest Pain (ED), Near Syncope (ED) Additional Instructions: Followup as scheduled on Friday regarding your classroom monitor. Return to the emergency department for new or worsening symptoms including new/different/worse chest pain or numbness, difficulty breathing, passing out, weakness of one part of your body, symptoms that do not go away on their own, or if you have any other concerns. Referrals: Kita Clark MD [Primary Care Provider] - [facility] General Mode of arrival: ambulatory. Date/Time Provider Initiated Documentation: 01/31/24 21:26. Limitations to Documentation: no limitations. Information obtained by: patient and old records reviewed. HPI Narrative: 39yo F with hx GERD presenting for left sided chest pain radiating to her arm, left facial and arm numbness, and lightheadedness with prescynope. Recent ED visits for similar symptoms on 12/24/23 and 01/10/24. Today experienced the same symptoms (chest/arm pain, facial/arm numbness) intermittently throughout the day however new this evening her vision started to go dark around the edges and she had trouble hearing. Maybe some shortness of breath as well, not entirely sure. Did not lose consciousness. Lasted about 5 minutes, now feels mostly back to normal. No further pain or numbness, does feel a little lightheaded and nauseated. No vomiting. When pain was present is sharp, moderate to severe, and radiated to her arm and back. No alleviating or aggravating factors. Had a Holter monitor (removed today), appointment on Friday to discuss results. Otherwise in her usual state of health with no fevers, chills, rash, abdominal pain, dysuria, hematuria, diarrhea, focal weakness, diplopia, vertigo, or other concerns. Related Data Home Medications Medication Instructions Recorded Confirmed escitalopram oxalate 10 mg tablet 10 mg PO DAILY 01/10/24 01/31/24 lorazepam 0.5 mg tablet 0.5 mg PO BID 01/10/24 01/31/24 omeprazole 20 mg capsule,delayed 20 mg PO ONCE 01/10/24 01/31/24 release propranolol 10 mg tablet 10 mg PO BID 01/10/24 01/31/24 clindamycin HCl 300 mg capsule mg 01/31/24 cyclobenzaprine 10 mg tablet mg 01/31/24 hydroxyzine HCl 10 mg tablet mg 01/31/24 metoprolol succinate 50 mg mg PO 01/31/24 tablet,extended release 24 hr Allergies Allergy/AdvReac Type Severity Reaction Status Date / Time amoxicillin [Amoxicillin] Allergy Severe facial Verified 01/31/24 21:30 swelling cefuroxime [From Ceftin] Allergy Unknown Skin Rash Unverified 01/31/24 21:30 hydrocodone bitartrate AdvReac Severe Nausea, Verified 01/31/24 21:30 [From Vicodin] vomiting General Stated Complaint: Chest Pain WADE: 3 Review of Systems Narrative: see HPI Exam Narrative Exam Narrative: General: Alert, well appearing, well nourished, in no acute distress. Head: Normocephalic, atraumatic Neck: Trachea midline, ?Neck supple. ENT: ?MMM.? No oropharygeal lesions or exudate. Cardiac: ?RRR, no murmurs appreciated Resp: No respiratory distress. CTAB. Abd: ?Non-distended Extremities: ?No deformities.? No peripheral edema. Equal radial pulses bilaterally. Neuro: ? GCS 15.?? Fluent speech, no dysarthria. Motor- 5/5 strength symmetric bilateral upper and lower extremities including shoulder abductors/adductors, elbow flexors/extensors, wrist flexors/extensors, finger abductors/adductors, hipflexors/extensors, ankle dorsiflexors and planter flexors. Sensation- ?Intact to light touch and symmetric multiple dermatomes including upper and lower extremities Coordination- No dysmetria on finger to nose Gait/station: ?Normal stance.? No truncal ataxia. Steady gait with equal normal steps CRANIAL NERVES: II: Pupils equal and reactive, III, IV, : EOM intact, no gaze preference or deviation, no nystagmus. V: normal sensation in V1, V2, and V3 segments bilaterally VII: no asymmetry, no nasolabial fold flattening VIII: normal hearing to speech IX, X: normal palatal elevation, no uvular deviation XI: 5/5 head turn and 5/5 shoulder shrug bilaterally XII: midline tongue protrusion Course Vital Signs Vital signs: Vital Signs Temperature 36.9 C 01/31/24 21:20 Pulse 104 H 01/31/24 21:20 Respiratory Rate 20 01/31/24 21:20 Blood Pressure 156/112 H 01/31/24 21:20 Pulse Oximetry 100 01/31/24 21:20 Temperature 36.6 C 01/31/24 21:24 Temperature Source Oral 01/31/24 21:24 Pulse 87 01/31/24 21:37 Pulse 95 H 01/31/24 21:37 Respiratory Rate 14 01/31/24 21:41 Respiratory Effort Normal 01/31/24 21:38 Respiratory Depth Normal 01/31/24 21:38 Respiratory Pattern Normal 01/31/24 21:38 Blood Pressure 162/89 H 01/31/24 21:37 Blood Pressure Mean 115 01/31/24 21:37 Pulse Oximetry 100 01/31/24 21:41 Oxygen Delivery Method Room Air 01/31/24 21:20 Oxygen Flow Rate 0 01/31/24 21:20 Pain Level 6 01/31/24 21:20 Medical Decision Making 39yo F with hx GERD presenting for left sided chest pain radiating to her arm, left facial and arm numbness, and lightheadedness with prescynope. Recent ED visits for similar symptoms on 12/24/23 and 01/10/24 with negative workups at that time including CTA head & neck and CTA chest. Today experienced the same symptoms (chest/arm pain, facial/arm numbness) intermittently throughout the day however new this evening her vision started to go dark around the edges and she had trouble hearing. Did not lose consciousness. Symptoms lasted about 5 minutes, have since resolved. Borderline hypertensive and tachycardia on arrival, non-toxic appearing on exam with entirely normal neurologic exam. With recent prior negative CT brain/neck/chest for similar symptoms would not repeat again today; CVA or aortic dissection unlikely and radiation risk of repeated scans for her persistent symptoms is not insignificant. EKG sinus tachycardia, appropriate intervals, no ST segment or T wave abnormalities to suggest occlusive [place]. CXR independently reviewed, no focal pneumonia or pneumothorax on my view, agree with radiology read below. Orthostatic vital signs normal. Labs reviewed as below, CBC & CMP reassuring with no anemia, leukocytosis, or significant electrolyte abnormalities. Mg normal. Dimer negative; would not further pursue pulmonary embolism with CT imaging. Troponin negative x 2; would not further pursue ACS. HEART score low-risk. Unclear etiology of symptoms however with reassuring workup she is appropriate for outpatient followup tomorrow with her PCP as previously scheduled Discharged home; discharge instructions and return precautions were reviewed with patient who verbalized understanding. All questions were answered and she is in full agreement with the plan. Medical Records Medical records reviewed: Yes I reviewed the patient's medical records. Medical records narrative: ED visits 12/24/23, 01/10/24 Imaging Data Radiologic Study: Imaging: X-Ray Radiologist's impression: IMPRESSION: No acute findings. Lab Data Lab results reviewed: Yes I reviewed the patient's lab results. Labs: Laboratory Tests Range/Units 01/31/24 21:35 WBC (4.4-10.8) 10^3/uL 7.14 RBC (3.93-5.22) 10^6/uL 4.17 Hgb (11.2-15.7) g/dL 12.6 Hct (36.0-46.0) % 37.3 MCV (80-95) fL 89 MCH (27.0-33.0) pg 30.2 MCHC (32.0-36.0) % 33.8 RDW (11.7-14.6) % 12.5 Plt Count (130-400) 10^3/uL 344 MPV (8.0-11.0) fL 9.5 Immature Gran % 0.3 Neutrophils % 53.6 Lymphocytes % 37.4 Monocytes % 5.9 Eosinophils % 2.2 Basophils % 0.6 Nucleated RBC % (0.0-0.3) % 0.0 Absolute Neutrophils (1.2-6.7) 10^3/uL 3.83 Absolute Lymphocytes (1.2-3.4) 10^3/uL 2.67 Absolute Monocytes (0.1-0.8) 10^3/uL 0.42 Absolute Eosinophils (0.0-0.7) 10^3/uL 0.16 Absolute Basophils (0.0-0.2) 10^3/uL 0.04 D-Dimer (<500) ng/mlFEU 333 Sodium (136-145) mmol/L 141 Potassium (3.5-5.1) mmol/L 3.4 L Chloride (98-107) mmol/L 105 Carbon Dioxide (21.0-32.0) mmol/L 26.1 Anion Gap (3-11) mmol/L 9.9 BUN (7-18) mg/dL 12 Creatinine (0.55-1.02) mg/dL 0.7 Est GFR (CKD-EPI 2020) (mL/min/1.73m2) 114.16 Glucose (74-106) mg/dL 111 H Calcium (8.5-10.1) mg/dL 9.0 Magnesium (1.8-2.4) mg/dL 1.9 Total Bilirubin (0.2-1.0) mg/dL 0.2 AST (15-37) U/L 22 ALT (14-59) U/L 29 Alkaline Phosphatase (46-116) U/L 84 Troponin I (< or =60) ng/L < 50 Total Protein (6.4-8.2) g/dL 7.6 Albumin (3.4-5.0) g/dL 3.8 Quality:SDOH Health Related Social Needs: No Data to Display PFSH All Active Problems (Updated 01/31/24 @ 23:40 by Hyun Espinosa MD) Chest pain (Acute) Pre-syncope (Acute) Chest pain (Acute) Pelvic pain (Acute) Frontal headache (Acute) Tailor's bunionette, right (Acute) UTI (urinary tract infection) (Acute) 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) Arthralgia of right acromioclavicular joint (Acute 02/26/17) Right rotator cuff tendinitis (Acute 12/09/16) Patellar tendon strain (Acute) Patellar tendinitis of left knee (Acute) Pain of left knee after injury (Acute) Lesion of left femur (Acute) Surgical History History of tonsillectomy and adenoidectomy Ligation of fallopian tube Social History Smoking/Tobacco Use Status: Current every day Tobacco Type: e-cigarettes Smoking risk assessment performed?: Yes Alcohol Intake: current Alcohol Intake frequency: a few times a month Drug use: Never Substance use type: does not use Housing: house Do you feel safe at home: Yes Do you feel safe in your relationship?: Yes Female Reproductive History Menstrual control method: permanent sterilization History History 4 Para 4 Hx # Term Pregnancies Multiple births Hx # Pregnancies Ectopic pregnancies AB induced Hx Number of Living Children AB spontaneous Past Pregnancies Del. Date GA/Weeks # Preg Succ Route Wgt Sex Labor Lgth Anesthesia Location Prov Complic 08/01/04 40 No vaginal Female [facility] 05/01/07 40 No vaginal Female [facility] 08/16/09 40 No vaginal Male [facility] 06/07/12 40 No vaginal Female [facility]
--- NOTE | 2024-01-31 22:15 | DI.RAD_ITS ---
Exam(s) XR CHEST 2V PA LATERAL EXAM: XR CHEST 2V PA LATERAL CLINICAL HISTORY: chest pain. TECHNIQUE: 2D digital imaging was performed. COMPARISON: CR XR CHEST 2V PA LATERAL from 12/17/2023 FINDINGS: 2 views: Heart size is normal. The mediastinum is not widened. Lungs are clear. No infiltrates nor pleural effusions. IMPRESSION: No acute pulmonary findings. DATA REPOSITORY: RADIATION DOSE DELIVERED:
[2024-01-31 22:29] LABS: Abs Immature Grans 0.02 10^3/uL (0.0-0.06); Absolute Basophil Count 0.04 10^3/uL (0.0-0.2); Absolute Eosinophil Count 0.16 10^3/uL (0.0-0.7); Absolute Lymphocyte Count 2.67 10^3/uL (1.2-3.4); Absolute Monocyte Count 0.42 10^3/uL (0.1-0.8); Absolute Neutrophil Count 3.83 10^3/uL (1.2-6.7); Basophils % 0.6; Eosinophils % 2.2; HCT 37.3 % (36.0-46.0); HGB 12.6 g/dL (11.2-15.7); Immature Grans % 0.3; Lymphocytes % 37.4; MCH 30.2 pg (27.0-33.0); MCHC 33.8 % (32.0-36.0); MCV 89 fL (80-95); MPV 9.5 fL (8.0-11.0); Monocytes % 5.9; Neutrophils % 53.6; Platelet Count 344 10^3/uL (130-400); RBC 4.17 10^6/uL (3.93-5.22); RDW 12.5 % (11.7-14.6); RDW-SD 41.1 fL; WBC 7.14 10^3/uL (4.4-10.8)
[2024-01-31 22:47] LABS: ALT 29 U/L (14-59); AST 22 U/L (15-37); Albumin 3.8 g/dL (3.4-5.0); Alkaline Phosphatase 84 U/L (46-116); Anion Gap 9.9 mmol/L (3-11); BUN 12 mg/dL (7-18); Bilirubin, Total 0.2 mg/dL (0.2-1.0); CO2 26.1 mmol/L (21.0-32.0); CREATININE 0.7 mg/dL (0.55-1.02); Chloride 105 mmol/L (98-107); Estimated GFR 114.16 (mL/min/1.73m2); Glucose 111 mg/dL (74-106); Magnesium 1.9 mg/dL (1.8-2.4); Potassium 3.4 mmol/L (3.5-5.1); Sodium 141 mmol/L (136-145); Total Protein 7.6 g/dL (6.4-8.2)
[2024-01-31 22:58] LABS: Troponin I < 50 ng/L (< or =60)
[2024-01-31 23:00] LABS: D-Dimer 333 ng/mlFEU (<500)
--- NOTE | 2024-01-31 23:35 | DI.VRAD_ITS ---
PROCEDURE INFORMATION: Exam: XR Chest Exam date and time: 01/31/2024 10:35 PM Age: 39 years old Clinical indication: Other: Unspecified; Patient HX: Chest pain TECHNIQUE: Imaging protocol: Radiologic exam of the chest. Views: 2 views. COMPARISON: CT CHEST PE CTA 12/24/2023 11:19 PM FINDINGS: Lungs: Unremarkable. No consolidation. Pleural spaces: Unremarkable. No pleural effusion. No pneumothorax. Heart/Mediastinum: Unremarkable. No cardiomegaly. Bones/joints: Unremarkable. IMPRESSION: No acute findings. Dictated and Authenticated by: Pipo Betancourt MD. Ordering:BENNY Purvis MD
[2024-02-01 00:58] VITALS: BP 119/87; PULSE 64; RESP 18; O2SAT 96
[2024-02-01 01:08] LABS: Troponin I < 50 ng/L (< or =60)
[2024-02-01 01:36] VITALS: BP 143/68; PULSE 67; RESP 14; O2SAT 98
== END 2024-02-01 01:44 | disposition home or self-care (01) ==
PROVIDERS: Emergency Provider Student in an Organized Health Care Education/Training Program; PCP Family Medicine
DX: R07.9 Chest pain, unspecified (principal); R55 Syncope and collapse; R00.0 Tachycardia, unspecified; F17.290 Nicotine dependence, other tobacco product, uncomplicated
CPT/HCPCS: 36415; 80053; 93005; 99285; 71046; 83735; 84484; 85025; 85379; 93010; 99284

== ENCOUNTER → 2024-02-05 03:20 | Outpatient (CLI) | payer MEDICAID, SELFPAY ==
--- NOTE | 2024-02-05 | DI.US_ITS ---
APPROVED REPORT EXAM: Comprehensive 2D, Doppler, and color-flow Echocardiogram Patient Location: Out-Patient Floor Coverer Apprentice: Ryanne Mejia RDCS (AE) Indications: Other forms of dyspnea, JOHNSON, Chest palpitations and chest tightness Other Information Study Quality: Adequate Conclusion Normal left ventricular wall thickness and chamber size. EF is 60-65%. Wall motion is normal Normal diastolic function Normal right ventricular size and function Both atria are normal in size. There is no structural or hemodynamically significant valvular disease Estimated right ventricular systolic pressure is 16 mmHg Dilated ascending aorta 3.87 cm Wall motion Left Ventricle The left ventricle is normal size. The left ventricular systolic function is normal. The left ventric ular ejection fraction is within the normal range. There is normal left ventricular wall thickness. T here is normal LV segmental wall motion. The left ventricular diastolic function is normal. There is no ventricular septal defect visualized. LVEF is 60-65%. Right Ventricle The right ventricle is normal size. The right ventricular systolic function is normal. Atria The left atrium size is normal. The right atrium size is normal. The interatrial septum is intact wit h no evidence for an atrial septal defect. Aortic Valve The aortic valve is normal in structure. Aortic valve is trileaflet. There is no aortic valvular sten osis. No aortic regurgitation is present. Mitral Valve The mitral valve is normal in structure. No evidence of mitral valve stenosis. Trace mitral regurgita tion. Tricuspid Valve The tricuspid valve is normal in structure. There is no tricuspid valve stenosis. Trace tricuspid reg urgitation. The RVSP is 15.6mmHg. Pulmonic Valve The pulmonary valve is normal in structure. There is no pulmonic valvular stenosis. Trace pulmonic re gurgitation. Great Vessels The aortic root is normal in size. The ascending aorta is mildly dilated. Aortic arch is normal in ca liber. IVC is normal in size and collapses >50% with inspiration. Pericardium There is no pericardial effusion. 2D Dimensions IVSD d PLAX 0.84 cm F: 0.6-1.0 Ao Root d 2.85 cm F: 2.7 - 3.3 LVPW d PLAX 0.84 cm F: 0.6 - 1.0 Ao Asc Diam d 3.87 cm F: 2.3 - 3.1 LVID d PLAX 5.18 cm F: 3.8 - 5.2 LVDs 3.59 cm F: 2.2 - 3.5 LV EF Teichholz 57.9 % FS 30.68 % LV EDV (Teich) 128.1 mL LV ESV (Teich) 54.0 mL M-Mode TAPSE 2.19 cm (M/F) >1.7 Auto EF LV EDV A4C 131.3 mL LV EDV A2C 147.5 mL LV EDV BP 142.3 mL LV ESV A4C 57.8 mL LV ESV A2C 63.1 mL LV ESV BP 61.2 mL LVEF(%) A4C 56.0 % LVEF(%) A2C 57.2 % LVEF(%) BP 57.0 % LV SV A4C 73.5 ml LV SV A2C 84.4 ml LV SV BP 81.2 ml LV CO A4C 4.0 L/min LV CO A2C 5.3 L/min LV CO BP 4.7 L/min HR A4C 55.13 BPM HR A2C 62.40 BPM LV EDV Index (BP) LA Volume LA Length A4C 5.3 cm LA Length A2C 5.3 cm LA Area A4C s 18.30 cm2 LA Area A2C s 18.79 cm2 LA Vol A4C A-L 53.50 mL LA Vol A2C A-L 56.04 mL LA Vol Biplane A-L 54.9 mL LA Vol/BSA A4C A-L LA Vol/BSA A2C A-L LA Vol/BSA BP A-L 30.0 mL/m2 LA Vol A4C MOD 51.4 mL LA Vol A2C MOD 51.9 mL LA Vol BP MOD 51.7 mL RA Volume RA Area A4C 13.9 cm2 RA ESV A4C (A-L) 32.4mL RA Vol/BSA A4C A-L RA Length A4C 5.1 cm RA ESV A4C (MOD) 30.9mL LV Diastology MV E' medial 0.077 (>0.07 m/s) MV E Vmax 0.76 (0.4-1.3 m/s) MV E/E' MED 9.78 (<14) MV A Vmax 0.80 (0.4-1.3 m/s) MV E' lateral 0.118 (>0.1 m/s) E/A Ratio 0.9 MV E/E' LAT 6.39 (<14) MV E' Average 0.098 m/s MV E/E'(average) 7.73 Aortic Valve AoV Vmax 1.19 m/s LVOT Vmax 0.93 m/s AoV Peak Grad 5.7 mmHg LVOT Peak Grad 3.5 mmHg AoV Area (Vmax) 2.50 cm2 LVOT VTI 0.207 m AoV VTI 0.264 m LVOT Mean Grad 2.2 mmHg AoV Mean Broderick. 0.88 m/s LVOT SV 66.10 mL AoV Mean Grad 3.5 mmHg LVOT Diam s 2.00 cm AoV Area (VTI) 2.50 cm2 Velocity Ratio 0.78 Mitral Valve MV DT 171 (160-240 msec) MV Vmax TIPS 0.74 m/s MV Mean Grad 1.1 (<2mmHg) MV VTI 0.283 m Pulmonary Valve PV Vmax 0.70 (0.5-1.5 m/s) RVOT Vmax 0.65 m/s PV Peak Grad 2.0 mmHg RVOT Peak Gr. 1.7 mmHg PV Mean Broderick 0.52 m/s RVOT VTI 0.141 m PV Mean Grad 1.2 mmHg RVOT Mean Gr. 1.1 mmHg Tricuspid Valve RA Pressure 3.00 mmHg TR Vmax 1.78 m/s TV S' 0.14 m/s TR Peak Grad 12.6 mmHg RVSP (TR) 15.6 mmHg
== END ==
PROVIDERS: PCP Family Medicine; Visit Provider Family Medicine
DX: R06.9 Unspecified abnormalities of breathing (principal); R00.2 Palpitations
CPT/HCPCS: 93306

== ENCOUNTER 2024-02-08 21:11 | Emergency (ER) | payer MEDICAID, SELFPAY ==
[2024-02-08] VITALS (21 sets, daily range): BP systolic 122–170; BP diastolic 75–116; PULSE 72–95; RESP 14–21; TEMP 36.7; O2SAT 98–100
--- NOTE | 2024-02-08 21:00 | RT.EKG_ITS ---
APPROVED REPORT Exam: Resting ECG Reason for Exam: Palpitation Patient Location: E HR:89 bpm ECG Measurements Heart Rate 89 AXIS AL 159 P 37 QRSd 107 QRS -16 QT 413 T 8 QTc 502 Conclusion Sinus rhythm...normal P axis, V-rate 60- 99 Per my independent interpretation EKG shows: Normal sinus rhythm at a rate of 89. Left axis deviation no signs of LVH based on voltage criteria i n aVL. Interventricular conduction delay QRS 107 ms. Slightly more prolonged compared to prior date d earlier this month. [place] within normal limits. Prolonged QT C at 502 ms. T wave flattening in V3. No ST segment abnormalities. T wave flattening in V3 similar to prior. Prior dated earlier this mo nth. No acute injury pattern.
--- NOTE | 2024-02-08 21:16 | W.ED.GENAD ---
Discharge Plan Disposition Patient Disposition: Home Discharge Details Clinical Impression: Palpitations Primary Care Provider: Kita Clark ED Provider: Phillip Dinh Home Meds and New Rx's Prescriptions: Continued lorazepam 0.5 mg tablet 0.5 mg PO BID Patient Comments: TAKE 1 TABLET BY MOUTH TWICE DAILY NEEDED escitalopram oxalate 10 mg tablet 10 mg PO DAILY Patient Comments: TAKE 1 TABLET BY MOUTH EVERY DAY omeprazole 20 mg capsule,delayed release(DR/EC) 20 mg PO ONCE Patient Comments: TAKE 1 CAPSULE BY MOUTH DAILY propranolol 10 mg tablet 10 mg PO BID Patient Comments: TAKE 1 TO 2 TABLETS BY MOUTH TWICE DAILY NEEDED FOR ACUTE ANXIETY cyclobenzaprine 10 mg tablet 10 mg PO Q8H PRN Patient Comments: TAKE ONE TABLET BY MOUTH THREE TIMES A DAY NEEDED metoprolol succinate 50 mg tablet extended release 24 hr 50 mg PO ONCE Patient Comments: TAKE 1 TABLET BY MOUTH EVERY DAY hydroxyzine HCl 10 mg tablet 20 mg PO BID PRN Patient Comments: TAKE 1 TO 2 TABLETS BY MOUTH TWICE DAILY NEEDED FOR ANXIETY Discharge Instructions Instructions: Heart Palpitations (ED) Additional Instructions: You are seen in the emergency department for your palpitations. Your blood work showed no sign of heart attack. Please take the medicines as prescribed by your primary care provider. Please return to the emergency department if you pass out or develop worsening shortness of breath or have any other concerns. Otherwise please follow-up with your primary care provider next week. HPI General Date/Time Provider Initiated Documentation: 02/08/24 21:12. HPI Narrative: MDM This is an overall very well-appearing normothermic and not tachycardic 39-year-old female with palpitations and chest pain concerning for the possibility of ACS for which patient will receive ECG and troponin testing. No tearing quality to suggest aortic dissection. No cough nor fever so doubt pneumonia. No positional component to suggest pericarditis. I considered PE however the patient is PERC negative so I did not order a D-dimer. No pain out of proportion to suggest necrotizing soft tissue infection. No rash to chest to suggest zoster. Soft nontender abdomen and no vomiting nor ethanol use so doubt pancreatitis. Not hypotensive nor dialysis patient so doubt tamponade. No trauma to the chest and equal breath sounds so doubt pneumothorax however will obtain a chest x-ray. I considered pheochromocytoma however the patient has had a CT scan in the past months and had no renal masses.I advised patient of her reassuring echocardiogram from earlier this week. She has previously had a Holter monitor which was also reassuring. No syncope to suggest V. tach although patient did have mildly prolonged QTc. Will obtain magnesium level. Will repeat TSH. No vomiting to suggest increased risk for esophageal rupture. Concern the patient's headache was not sudden onset so my suspicion is low for subarachnoid hemorrhage. No recent chiropractic manipulation to suggest increased risk for cervical arterial dissection so I do not feel the patient requires CT angiogram. No recent generator exposure to suggest carbon monoxide toxicity. No fevers no nuchal rigidity to suggest meningitis. Not altered to suggest encephalitis. No visual changes to suggest giant cell arteritis. Given facial paresthesias I considered multiple sclerosis however the patient has not had any visual changes I did not feel that her presentation represented new onset MS. Will treat headache with ketorolac. 9:45 PM CBC lacks anemia thrombocytopenia and leukocytosis. 10:06 PM Negative troponin. Given duration of time since symptoms began I do not feel the patient requires repeat troponin. Basic metabolic panel with mild hyperglycemia and mild anion gap but normal bicarbonate??not consistent with DKA. Mild hypokalemia. Normal calcium. Very mild hypomagnesemia for which patient will receive oral repletion. Negative hCG. Normal reassuring TSH. HEART SCORE Chest pain Diagnostic Protocol: [-History/Physical/Gestalt: Slightly Suspicious (0)] [-EKG: Normal and/or unchanged from prior EKG (0)] [-AGE: less than 45 (0)] [- RISK FACTORS: 3 or more risk factors and/or known CAD (+2)] [-TROPONIN: <= normal limit (0)] - TOTAL SCORE: 2 - Risk Factors: DM, current or recent smoker, HTN, HLD, family hx of CAD, obesity - INTERPRETATION: With a total score of 3 or less, risk of major cardiac event within six weeks 1.7%, likely lower with two negative troponins. [I explained to the patient that the risk of subsequent major cardiac event within 1 month is not 0, however risk predicted to be less than 2%. Patient verbalized understanding, accepts this risk and shared and the decision for discharge with PCP follow-up for further evaluation and management. They understand to return to the ED immediately with any worsening symptoms, new symptoms or other concerns.] Chronic conditions affecting the care of the patient: History obtained from an outside historian: N/A [place] [facility] [place] [Diagnostic interpretations performed by me: Per my independent interpretation chest x-ray shows: No acute cardiopulmonary process Per my independent interpretation EKG shows: Normal sinus rhythm at a rate of 89. Left axis deviation no signs of LVH based on voltage criteria in aVL. Interventricular conduction delay QRS 107 ms. Slightly more prolonged compared to prior dated earlier this month. [place] within normal limits. Prolonged QT C at 502 ms. T wave flattening in V3. No ST segment abnormalities. T wave flattening in V3 similar to prior. Prior dated earlier this month. No acute injury pattern. ]Medications: Ketorolac Social determinants of health affecting disposition: N/A Management discussed with: N/A Treatment/interventions considered: N/A Response to therapies provided: N/A HPI This is a 39-year-old female with a history of elevated BMI and hypertension arrived to the emergency department via private vehicle in the setting of shortness of breath palpitations and left-sided chest pain that radiates up into her left arm and neck. She reports multiple episodes of the symptoms over the past month. She is that her symptoms began 2 days ago. She has been missing work. She took her blood pressure medications and these did not improve her symptoms. She did not have any syncope. There is no family history of any premature coronary artery disease. Patient denies history of hyperlipidemia and diabetes. She is a daily smoker. She denies history of vomiting. She is not nauseous. She never had a PE nor DVT. Exam General: Well-appearing in no mild distress speaking in complete sentences. Head: Normocephalic, atraumatic. Eye: Extraocular eye movements intact. No conjunctival injection. No scleral icterus. Ear, nose, mouth, throat: Grossly normal inspection. Normal voice, handling secretions normally. Neck: Trachea midline. Cardiovascular: Well-perfused distal extremities. Regular rate and rhythm Respiratory: Nonlabored respiration. Clear lungs bilaterally Gastrointestinal: Nondistended abdomen. Soft nontender Musculoskeletal: No significant lower extremity pitting edema. Moving all 4 extremities spontaneously. Skin: Normal for age and race, grossly normal temperature and turgor. No acute rash. Neurologic: Alert and appropriate, no apparent acute deficits. Psychiatric: Mood and manner are appropriate. Grooming and personal hygiene are appropriate. Related Data Home Medications Medication Instructions Recorded Confirmed escitalopram oxalate 10 mg tablet 10 mg PO DAILY 01/10/24 02/08/24 lorazepam 0.5 mg tablet 0.5 mg PO BID 01/10/24 02/08/24 omeprazole 20 mg capsule,delayed 20 mg PO ONCE 01/10/24 02/08/24 release propranolol 10 mg tablet 10 mg PO BID 01/10/24 02/08/24 cyclobenzaprine 10 mg tablet 10 mg PO Q8H PRN 01/31/24 02/08/24 hydroxyzine HCl 10 mg tablet 20 mg PO BID PRN 01/31/24 02/08/24 metoprolol succinate 50 mg 50 mg PO ONCE 01/31/24 02/08/24 tablet,extended release 24 hr Allergies Allergy/AdvReac Type Severity Reaction Status Date / Time amoxicillin [Amoxicillin] Allergy Severe facial Verified 02/08/24 21:51 swelling cefuroxime [From Ceftin] Allergy Unknown Skin Rash Unverified 02/08/24 21:51 hydrocodone bitartrate AdvReac Severe Nausea, Verified 02/08/24 21:51 [From Vicodin] vomiting General WADE: 3 Medical Decision Making Quality:SDOH Health Related Social Needs: No Data to Display PFSH All Active Problems (Updated 02/08/24 @ 22:10 by Phillip Dinh MD) Palpitations (Acute) Chest pain (Acute) Pre-syncope (Acute) Chest pain (Acute) Pelvic pain (Acute) Frontal headache (Acute) Tailor's bunionette, right (Acute) UTI (urinary tract infection) (Acute) 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) Arthralgia of right acromioclavicular joint (Acute 02/26/17) Right rotator cuff tendinitis (Acute 12/09/16) Patellar tendon strain (Acute) Patellar tendinitis of left knee (Acute) Pain of left knee after injury (Acute) Lesion of left femur (Acute) Surgical History History of tonsillectomy and adenoidectomy Ligation of fallopian tube Social History Smoking/Tobacco Use Status: Current every day Tobacco Type: e-cigarettes Smoking risk assessment performed?: Yes Alcohol Intake: current Alcohol Intake frequency: a few times a month Drug use: Never Substance use type: does not use Housing: house Do you feel safe at home: Yes Do you feel safe in your relationship?: Yes Female Reproductive History Menstrual control method: permanent sterilization History History 4 Para 4 Hx # Term Pregnancies Multiple births Hx # Pregnancies Ectopic pregnancies AB induced Hx Number of Living Children AB spontaneous Past Pregnancies Del. Date GA/Weeks # Preg Succ Route Wgt Sex Labor Lgth Anesthesia Location Prov Complic 08/01/04 40 No vaginal Female [facility] 05/01/07 40 No vaginal Female [facility] 08/16/09 40 No vaginal Male [facility] 06/07/12 40 No vaginal Female [facility]
[2024-02-08 21:45] LABS: Abs Immature Grans 0.01 10^3/uL (0.0-0.06); Absolute Basophil Count 0.04 10^3/uL (0.0-0.2); Absolute Eosinophil Count 0.12 10^3/uL (0.0-0.7); Absolute Lymphocyte Count 2.96 10^3/uL (1.2-3.4); Absolute Monocyte Count 0.33 10^3/uL (0.1-0.8); Absolute Neutrophil Count 3.18 10^3/uL (1.2-6.7); Basophils % 0.6; Eosinophils % 1.8; HCT 38.4 % (36.0-46.0); HGB 12.8 g/dL (11.2-15.7); Immature Grans % 0.2; Lymphocytes % 44.6; MCHC 33.3 % (32.0-36.0); MCV 90 fL (80-95); MPV 9.1 fL (8.0-11.0); Neutrophils % 47.8; Platelet Count 356 10^3/uL (130-400); RBC 4.27 10^6/uL (3.93-5.22); RDW 12.6 % (11.7-14.6); RDW-SD 41.2 fL; WBC 6.64 10^3/uL (4.4-10.8)
--- NOTE | 2024-02-08 21:45 | DI.RAD_ITS ---
Exam(s) XR CHEST 2V PA LATERAL EXAM: XR CHEST 2V PA LATERAL CLINICAL HISTORY: Chest pain TECHNIQUE: 2D digital imaging was performed of the chest. Images were obtained. PA and lateral v iews were obtained. COMPARISON: CR,XR XR CHEST 2V PA LATERAL from 01/31/2024 FINDINGS: MEDIASTINUM: Normal. HEART: Normal. PULMONARY VASCULATURE: Normal. LUNGS: Clear. PLEURAL SPACE: No pleural effusion or pneumothorax. BONE:Within normal limits for the patient's age. OTHER FINDINGS:Normal. IMPRESSION: No acute pulmonary findings. DATA REPOSITORY: RADIATION DOSE DELIVERED:
[2024-02-08 22:03] LABS: HCG Qual (Serum) Negative
[2024-02-08 22:04] LABS: Anion Gap 11.5 mmol/L (3-11); BUN 14 mg/dL (7-18); CO2 26.5 mmol/L (21.0-32.0); CREATININE 0.6 mg/dL (0.55-1.02); Calcium 8.9 mg/dL (8.5-10.1); Chloride 106 mmol/L (98-107); Estimated GFR 118.49 (mL/min/1.73m2); Glucose 114 mg/dL (74-106); Magnesium 1.7 mg/dL (1.8-2.4); Potassium 3.3 mmol/L (3.5-5.1); Sodium 144 mmol/L (136-145); Troponin I < 50 ng/L (< or =60)
[2024-02-08 22:11] LABS: TSH (W/Ref FT4) 2.75 uIU/mL (0.36-3.74)
[2024-02-08] MEDS: Magnesium Oxide 400 MG TAB PO (22:22)
[2024-02-08] MEDS: Potassium Chloride 20 MEQ TABCR 40 MEQ PO (22:22)
[2024-02-08] MEDS: Ketorolac 15 MG/ML VIAL IVP (22:22)
--- NOTE | 2024-02-08 23:44 | DI.VRAD_ITS ---
PROCEDURE INFORMATION: Exam: XR Chest Exam date and time: 02/08/2024 10:24 PM Age: 39 years old Clinical indication: Other: Chest discomfort, pain TECHNIQUE: Imaging protocol: Radiologic exam of the chest. Views: 2 views. COMPARISON: CR XR CHEST 2V PA LATERAL 01/31/2024 10:35 PM FINDINGS: Lungs: Unremarkable. No consolidation. Pleural spaces: Unremarkable. No pleural effusion. No pneumothorax. Heart/Mediastinum: Unremarkable. No cardiomegaly. Bones/joints: Stable widening of the right acromioclavicular joint. Bones are otherwise unremarkable. IMPRESSION: No acute disease Dictated and Authenticated by: Hong Barrientos MD. Ordering:ALBINO Fisher MD
== END 2024-02-08 23:55 | disposition home or self-care (01) ==
PROVIDERS: Emergency Provider Emergency Medicine; PCP Family Medicine
DX: R00.2 Palpitations (principal); R20.0 Anesthesia of skin; R07.9 Chest pain, unspecified; E11.9 Type 2 diabetes mellitus without complications; F17.210 Nicotine dependence, cigarettes, uncomplicated; I10 Essential (primary) hypertension; E78.5 Hyperlipidemia, unspecified; Z79.899 Other long term (current) drug therapy
CPT/HCPCS: 80048; 93005; 96374; 99285; 71046; 83735; 84443; 84484; 84703; 85025; 93010; J1885

== ENCOUNTER → 2024-02-12 01:58 | Outpatient (CLI) | payer MEDICAID, SELFPAY ==
--- NOTE | 2024-02-12 | DI.MRI_ITS ---
Exam(s) MR BRAIN WO EXAM: MR BRAIN WO CLINICAL HISTORY: R20.0 Anesthesia of skin, numbness of face TECHNIQUE: Multiplanar multisequence MRI of the brain was performed. COMPARISON: CT CT BRAIN NECK CTA from 12/24/2023 FINDINGS: The examination is limited due to patient motion artifact. VENTRICLES AND EXTRA AXIAL SPACES: Normal in size and morphology for the patient's age. MIDLINE SHIFT: None. CEREBRAL PARENCHYMA: No focus of restricted diffusion to suggest acute infarct. No space-occupying le uzma identified. HEMORRHAGE: None. BRAINSTEM/CEREBELLUM: Normal. CALVARIUM: Normal. VISUALIZED PARANASAL SINUSES/MASTOIDS:There is mucosal thickening in the maxillary sinuses bilaterall y. [place]: Normal flow void. PITUITARY GLAND: Unremarkable. OTHER FINDINGS: None. IMPRESSION: Unremarkable MRI of the brain. DATA REPOSITORY:
== END ==
PROVIDERS: PCP Family Medicine; Visit Provider Family Medicine
DX: R20.0 Anesthesia of skin (principal)
CPT/HCPCS: 70551

== ENCOUNTER 2024-02-12 13:57 | Emergency (ER) | payer MEDICAID, SELFPAY ==
[2024-02-12] VITALS (8 sets, daily range): BP systolic 125–163; BP diastolic 82–115; PULSE 70–88; RESP 13–18; TEMP 36.8; O2SAT 100
--- NOTE | 2024-02-12 13:45 | RT.EKG_ITS ---
APPROVED REPORT Exam: Resting ECG Reason for Exam: palpitations/HTN Patient Location: E HR:82 bpm ECG Measurements Heart Rate 82 AXIS AZ 147 P 43 QRSd 95 QRS -1 QT 398 T 10 QTc 464 Conclusion Sinus rhythm...normal P axis, V-rate 60- 99
--- NOTE | 2024-02-12 15:53 | ED.GENADUL_ITS ---
Discharge Plan Disposition Patient Disposition: Home Condition: Good Discharge Details Clinical Impression: Chest pain, Gastroenteritis, Frontal headache Primary Care Provider: Kita Clark ED Provider: Dianna Bhagat Home Meds and New Rx's Prescriptions: Continued lorazepam 0.5 mg tablet 0.5 mg PO BID Patient Comments: TAKE 1 TABLET BY MOUTH TWICE DAILY NEEDED escitalopram oxalate 10 mg tablet 10 mg PO DAILY Patient Comments: TAKE 1 TABLET BY MOUTH EVERY DAY omeprazole 20 mg capsule,delayed release(DR/EC) 20 mg PO ONCE Patient Comments: TAKE 1 CAPSULE BY MOUTH DAILY propranolol 10 mg tablet 10 mg PO BID Patient Comments: TAKE 1 TO 2 TABLETS BY MOUTH TWICE DAILY NEEDED FOR ACUTE ANXIETY cyclobenzaprine 10 mg tablet 10 mg PO Q8H PRN Patient Comments: TAKE ONE TABLET BY MOUTH THREE TIMES A DAY NEEDED metoprolol succinate 50 mg tablet extended release 24 hr 50 mg PO ONCE Patient Comments: TAKE 1 TABLET BY MOUTH EVERY DAY hydroxyzine HCl 10 mg tablet 20 mg PO BID PRN Patient Comments: TAKE 1 TO 2 TABLETS BY MOUTH TWICE DAILY NEEDED FOR ANXIETY Discharge Instructions Instructions: Chest Pain (ED) Additional Instructions: Please keep your appointment with your primary care provider as scheduled. I recommend that you take all of your prescriptions as indicated, including pro pranolol and lorazepam as discussed. A well-hydrated, drinking plenty of electrolyte rich fluids. Start out with gentle foods, avoiding spicy/greasy/fried foods. Chicken with soup is a great option while you are having nausea. May continue to take ibuprofen and Tylenol as needed for headache. Return to emergency care if you develop new concerning symptoms associated with your palpitations, weakness in your arms or legs, blood in stool or vomit, or if you are very worried and need to be rechecked again immediately Referrals: Kita Clark MD [Primary Care Provider] - [facility] General Date/Time Provider Initiated Documentation: 02/12/24 13:58 . [facility] Narrative: Arron is a 39-year-old female with history of tobacco use who presents to the emergency department today for evaluation of minimal chest discomfort/epigastric pain described as a burning accompanied by sensation of a lump in her throat. She reports for the last couple of weeks she has had intermittent chest pains increasing in intensity, described as sharp pains with a dull ache accompanied by lightheadedness and occasional numbness to the left side of her face and left arm. She has had this worked up extensively in the emergency department, as well as by her PCP Dr. Clark. She does report that for the last couple of days she has had a cough with nausea/vomiting/diarrhea, says she has been vomiting every time she takes any p.o. She does report since onset of symptoms a couple weeks ago she has had sweating and palpitations at night, daily throbbing headaches alleviated with Tylenol, and shortness of breath with exertion (unchanged, ongoing for a couple months); denies blood in stool/emesis, recorded fevers, change in urine output/dysuria, change in menstrual cycles. She says she is currently taking 2 blood pressure medications and checking her blood pressure every couple of hours when she is not feeling well, today she was concerned because her heart rate was 99 while she was not feeling well. She says that she has taken Pepto-Bismol and Tums for her abdominal discomfort with no improvement. She has not tried taking her lorazepam, says it makes her feel sleepy and she is not sure if it works because she just falls asleep. Denies regular ETOH use, marijuana use, or use of IV drugs or other recreational drugs. Related Data Home Medications Medication Instructions Recorded Confirmed escitalopram oxalate 10 mg tablet 10 mg PO DAILY 01/10/24 02/12/24 lorazepam 0.5 mg tablet 0.5 mg PO BID 01/10/24 02/12/24 omeprazole 20 mg capsule,delayed 20 mg PO ONCE 01/10/24 02/12/24 release propranolol 10 mg tablet 10 mg PO BID 01/10/24 02/12/24 cyclobenzaprine 10 mg tablet 10 mg PO Q8H PRN 01/31/24 02/12/24 hydroxyzine HCl 10 mg tablet 20 mg PO BID PRN 01/31/24 02/12/24 metoprolol succinate 50 mg 50 mg PO ONCE 01/31/24 02/12/24 tablet,extended release 24 hr Allergies Allergy/AdvReac Type Severity Reaction Status Date / Time amoxicillin [Amoxicillin] Allergy Severe facial Verified 02/12/24 14:05 swelling cefuroxime [From Ceftin] Allergy Unknown Skin Rash Unverified 02/12/24 14:05 hydrocodone bitartrate AdvReac Severe Nausea, Verified 02/12/24 14:05 [From Vicodin] vomiting General Stated Complaint: Palpitatns WADE: 3 Review of Systems Narrative: see HPI Exam Const General: cooperative, healthy appearing, comfortable and anxious Nutritional Appearance: average body habitus Orientation: alert and awake HENMT Head: normal to inspection Ears: hearing grossly normal bilaterally General nose exam: external nose normal Face and sinus: normal facial exam Mouth: oral mucosae normal Teeth and gingiva: dentition normal Throat: posterior oropharynx normal Neck Neck: normal visual inspection Resp Effort & Inspection: normal respiratory effort and able to speak in complete sentences Auscultation: clear to auscultation bilaterally Cardio Jugular venous pressure: no JVD Rate: regular rate Rhythm: regular rhythm GI Inspection: normal to inspection Palpation: soft, no guarding, not rigid and nontender Auscultation: normal bowel sounds Neuro General: no focal motor deficits Cognition: normal cognition Speech: speech normal Gait: normal gait Motor: muscle tone normal throughout and strength 5/5 throughout Course Vital Signs Vital signs: Vital Signs Temperature 36.8 C 02/12/24 14:00 Pulse 88 02/12/24 14:00 Respiratory Rate 16 02/12/24 14:00 Blood Pressure 163/115 H 02/12/24 14:00 Pulse Oximetry 100 02/12/24 14:00 Temperature 36.8 C 02/12/24 14:00 Temperature Source Oral 02/12/24 14:00 Pulse 88 02/12/24 14:00 Respiratory Rate 16 02/12/24 14:00 Respiratory Effort Normal 02/12/24 14:04 Blood Pressure 163/115 H 02/12/24 14:00 Pulse Oximetry 100 02/12/24 14:00 Pain Level 6 02/12/24 14:00 Medical Decision Making Arron is a 39-year-old female with history of tobacco use who presents to the emergency department today for evaluation of minimal chest discomfort/epigastric pain described as a burning accompanied by sensation of a lump in her throat. She reports for the last couple of weeks she has had intermittent chest pains increasing in intensity, described as sharp pains with a dull ache accompanied by lightheadedness and occasional numbness to the left side of her face and left arm. She has had this worked up extensively in the emergency department, as well as by her PCP Dr. Clark. She does report that for the last couple of days she has had a cough with nausea/vomiting/diarrhea, says she has been vomiting every time she takes any p.o. She does report since onset of symptoms a couple weeks ago she has had sweating and palpitations at night, daily throbbing headaches alleviated with Tylenol, and shortness of breath with exertion (unchanged, ongoing for a couple months); denies blood in stool/emesis, recorded fevers, change in urine output/dysuria, change in menstrual cycles. She says she is currently taking 2 blood pressure medications and checking her blood pressure every couple of hours when she is not feeling well, today she was concerned because her heart rate was 99 while she was not feeling well. She says that she has taken Pepto-Bismol and Tums for her abdominal discomfort with no improvement. She has not tried taking her lorazepam, says it makes her feel sleepy and she is not sure if it works because she just falls asleep. Denies regular ETOH use, marijuana use, or use of IV drugs or other recreational drugs. Physical exam very reassuring. Patient is alert and oriented, no acute distress. Normal speech, no facial droop noted. Moving all extremities equally. Easy work of breathing, lung sounds clear bilaterally. No cough during exam. Normal heart sounds, regular rate and rhythm. Abdomen soft, nondistended, nontender to palpation with normal active bowel sounds. No calf swelling noted. Annual nerves II through XII intact as tested. PERRL, EOMs intact. No nystagmus. Full painless range of motion to neck. Normal finger to finger, finger-nose, gait, rapid alternating movements, Romberg, sensation to upper and lower extremities. DDx includes was not limited to palpitations, esophageal spasm, GERD/gastritis, anxiety, electrolyte imbalance, dehydration, viral gastroenteritis. Low suspicion for ACS based on presentation consistent with previous chest pain episodes that have been worked up, no new features. Will obtain troponin and EKG. I independently interpreted the following tests: CBC, CMP, TSH, hCG, COVID/flu/RSV all reassuring. Troponin negative. As this is not a new presentation or having any concerning features, single troponin opted for in low risk patient. EKG reassuring, normal sinus rhythm rate 82. Slightly prolonged QTc, 464, decreased from previous on 02/07/23 (502). No changes c/w acute ischemia. I did review previous provider notes, including emergency department visits from 02/08/2024, 01/31/2024, and 01/10/2024. Symptoms today appear to be consistent with previous presentations. Patient has had a recent echocardiogram, 02/05/2024 ; as well as 48-hour Holter monitor (01/29/24) which showed 1 isolated PAC and 34 isolated PVCs, no A-fib or AV block noted. CTA was performed on 02/02/24 While in the emergency department Arron received IV normal saline, Toradol, famotidine, Benadryl, and Reglan. She reports that the nausea has fully subsided, has been able to take p.o. without difficulty. Headache has reduced in intensity, currently rated 6 out of 10 from 8 out of 10 upon arrival. Denzel is requesting to go home before IV Ns is completed, has received approximately 500 cc. History and presentation today most consistent with viral gastroenteritis and palpitations/anxiety. We discussed plan of care at home, including treatment of likely viral gastroenteritis, use of propranolol and lorazepam as needed for anxiety/palpitations. She admits that she has not been taking these at home, but is willing to take them to see if they may work. She has an appointment with Dr. Clark scheduled within the month. Reviewed red f lags indicating need for return to emergency care. 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) Arthralgia of right acromioclavicular joint (Acute 02/26/17) Right rotator cuff tendinitis (Acute 12/09/16) Patellar tendon strain (Acute) Patellar tendinitis of left knee (Acute) Pain of left knee after injury (Acute) Lesion of left femur (Acute) Surgical History History of tonsillectomy and adenoidectomy Ligation of fallopian tube Social History Smoking/Tobacco Use Status: Current every day Tobacco Type: e-cigarettes Smoking risk assessment performed?: Yes Alcohol Intake: current Alcohol Intake frequency: a few times a month Drug use: Never Substance use type: does not use Housing: house Do you feel safe at home: Yes Do you feel safe in your relationship?: Yes Female Reproductive History Menstrual control method: permanent sterilization History History 4 Para 4 Hx # Term Pregnancies Multiple births Hx # Pregnancies Ectopic pregnancies AB induced Hx Number of Living Children AB spontaneous Past Pregnancies Del. Date GA/Weeks # Preg Succ Route Wgt Sex Labor Lgth Anesth esia Location Prov Complic 08/01/04 40 No vaginal Female [facility] 05/01/07 40 No vaginal Female [facility] 08/16/09 40 No vaginal Male [facility] 06/07/12 40 No vaginal Female [facility]
[2024-02-12 16:17] LABS: Abs Immature Grans 0.01 10^3/uL (0.0-0.06); Absolute Basophil Count 0.03 10^3/uL (0.0-0.2); Absolute Eosinophil Count 0.06 10^3/uL (0.0-0.7); Absolute Lymphocyte Count 1.67 10^3/uL (1.2-3.4); Absolute Monocyte Count 0.28 10^3/uL (0.1-0.8); Absolute Neutrophil Count 3.88 10^3/uL (1.2-6.7); Basophils % 0.5; HCT 39.9 % (36.0-46.0); HGB 13.4 g/dL (11.2-15.7); Immature Grans % 0.2; Lymphocytes % 28.2; MCH 29.9 pg (27.0-33.0); MCHC 33.6 % (32.0-36.0); MCV 89 fL (80-95); MPV 9.1 fL (8.0-11.0); Monocytes % 4.7; Neutrophils % 65.4; Platelet Count 331 10^3/uL (130-400); RBC 4.48 10^6/uL (3.93-5.22); RDW 12.4 % (11.7-14.6); RDW-SD 40.8 fL; WBC 5.93 10^3/uL (4.4-10.8)
[2024-02-12] MEDS: diphenhydrAMINE 50 MG/ML VIAL 25 MG IVP (16:17)
[2024-02-12] MEDS: Famotidine 20 MG/2 ML VIAL IVP (16:18)
[2024-02-12] MEDS: Metoclopramide 10 MG/2 ML VIAL IVP (16:19)
[2024-02-12] MEDS: Ketorolac 15 MG/ML VIAL IVP (16:19)
[2024-02-12 16:30] LABS: HCG Qual (Serum) Negative
[2024-02-12] MEDS: Normal Saline 1,000 ML 1000 ML IV (16:30)
[2024-02-12 16:37] LABS: ALT 31 U/L (14-59); AST 21 U/L (15-37); Albumin 4.3 g/dL (3.4-5.0); Alkaline Phosphatase 71 U/L (46-116); Anion Gap 9.3 mmol/L (3-11); BUN 11 mg/dL (7-18); Bilirubin, Total 0.7 mg/dL (0.2-1.0); CO2 27.7 mmol/L (21.0-32.0); CREATININE 0.5 mg/dL (0.55-1.02); Calcium 8.9 mg/dL (8.5-10.1); Chloride 104 mmol/L (98-107); Estimated GFR 123.81 (mL/min/1.73m2); Glucose 81 mg/dL (74-106); Potassium 4.3 mmol/L (3.5-5.1); Sodium 141 mmol/L (136-145); Total Protein 7.7 g/dL (6.4-8.2)
[2024-02-12 16:39] LABS: Troponin I < 50 ng/L (< or =60)
[2024-02-12 16:45] LABS: TSH (W/Ref FT4) 0.72 uIU/mL (0.36-3.74)
[2024-02-12 16:58] LABS: COVID-19 PCR Negative (Negative); Influenza A PCR Negative (Negative); Influenza B PCR Negative (Negative); RSV PCR Negative (Negative)
[2024-02-12 16:59] LABS: Source NASOPHARYNX
== END 2024-02-12 17:49 | disposition home or self-care (01) ==
PROVIDERS: Emergency Provider Nurse Practitioner Family; PCP Family Medicine
DX: R07.9 Chest pain, unspecified (principal); K52.9 Noninfective gastroenteritis and colitis, unspecified; R51.9 Headache, unspecified; R00.2 Palpitations; I10 Essential (primary) hypertension; F17.290 Nicotine dependence, other tobacco product, uncomplicated; Z11.52 Encounter for screening for COVID-19
CPT/HCPCS: 80053; 87637; 93005; 96361; 96374; 96375; 99284; 83735; 84443; 84484; 84703; 85025; 93010; J1200; J1885; J2765

== ENCOUNTER 2024-02-16 08:55 | Outpatient (CLI) | payer MEDICAID, SELFPAY | END 2024-02-16 08:56 | disposition home or self-care (01) | LOC: LBO 08:55 | PROVIDERS: PCP Family Medicine; Visit Provider Family Medicine | DX: I10 Essential (primary) hypertension (principal) | CPT/HCPCS: 36415; 82533 ==

== ENCOUNTER 2024-02-24 20:04 | Emergency (ER) | payer MEDICAID, SELFPAY ==
[2024-02-24] VITALS (15 sets, daily range): BP systolic 139–174; BP diastolic 92–110; PULSE 72–85; RESP 10–21; TEMP 36.6; O2SAT 98–100
--- NOTE | 2024-02-24 20:00 | RT.EKG_ITS ---
APPROVED REPORT Exam: Resting ECG Reason for Exam: chest pain, facial numbness Patient Location: E HR:86 bpm ECG Measurements Heart Rate 86 AXIS [place] 162 P 47 QRSd 102 QRS -5 QT 402 T 13 QTc 480 Conclusion Sinus rhythm 86 no stemi
[2024-02-24] MEDS: Ketorolac 15 MG/ML VIAL 10 MG IVP (20:46)
[2024-02-24 20:49] LABS: Abs Immature Grans 0.01 10^3/uL (0.0-0.06); Absolute Basophil Count 0.02 10^3/uL (0.0-0.2); Absolute Eosinophil Count 0.16 10^3/uL (0.0-0.7); Absolute Lymphocyte Count 2.18 10^3/uL (1.2-3.4); Absolute Monocyte Count 0.35 10^3/uL (0.1-0.8); Absolute Neutrophil Count 3.33 10^3/uL (1.2-6.7); Basophils % 0.3 %; Eosinophils % 2.6 %; HCT 36.9 % (36.0-46.0); HGB 12.4 g/dL (11.2-15.7); Immature Grans % 0.2 %; MCHC 33.6 % (32.0-36.0); MCV 89 fL (80-95); MPV 9.1 fL (8.0-11.0); Monocytes % 5.8 %; Neutrophils % 55.1 %; Platelet Count 287 10^3/uL (130-400); RBC 4.13 10^6/uL (3.93-5.22); RDW 12.5 % (11.7-14.6); WBC 6.05 10^3/uL (4.4-10.8)
[2024-02-24 21:15] LABS: ALT 56 U/L (14-59); AST 26 U/L (15-37); Albumin 3.9 g/dL (3.4-5.0); Alkaline Phosphatase 68 U/L (46-116); Anion Gap 10.2 mmol/L (3-11); BUN 14 mg/dL (7-18); Bilirubin, Total 0.2 mg/dL (0.2-1.0); CO2 24.8 mmol/L (21.0-32.0); CREATININE 0.7 mg/dL (0.55-1.02); Calcium 8.7 mg/dL (8.5-10.1); Chloride 106 mmol/L (98-107); Creatine Kinase 108 U/L (26-192); Estimated GFR 114.16 (mL/min/1.73m2); Glucose 92 mg/dL (74-106); Potassium 3.3 mmol/L (3.5-5.1); Sodium 141 mmol/L (136-145); Total Protein 7.5 g/dL (6.4-8.2); Troponin I < 50 ng/L (< or =60)
[2024-02-24] MEDS: Potassium Chloride Liquid 20 MEQ PKT 40 MEQ PO (21:47)
--- NOTE | 2024-02-24 22:00 | ED.GENADUL_ITS ---
Discharge Plan Disposition Patient Disposition: Home Discharge Details Clinical Impression: Chest pain, Acute hypokalemia Primary Care Provider: Kita Clark ED Provider: Viry Pitts Home Meds and New Rx's Prescriptions: No Action lorazepam 0.5 mg tablet 0.5 mg PO BID Patient Comments: TAKE 1 TABLET BY MOUTH TWICE DAILY NEEDED escitalopram oxalate 10 mg tablet 10 mg PO DAILY Patient Comments: TAKE 1 TABLET BY MOUTH EVERY DAY omeprazole 20 mg capsule,delayed release(DR/EC) 20 mg PO ONCE Patient Comments: TAKE 1 CAPSULE BY MOUTH DAILY propranolol 10 mg tablet 10 mg PO BID Patient Comments: TAKE 1 TO 2 TABLETS BY MOUTH TWICE DAILY NEEDED FOR ACUTE ANXIETY cyclobenzaprine 10 mg tablet 10 mg PO Q8H PRN Patient Comments: TAKE ONE TABLET BY MOUTH THREE TIMES A DAY NEEDED metoprolol succinate 50 mg tablet extended release 24 hr 50 mg PO ONCE Patient Comments: TAKE 1 TABLET BY MOUTH EVERY DAY hydroxyzine HCl 10 mg tablet 20 mg PO BID PRN Patient Comments: TAKE 1 TO 2 TABLETS BY MOUTH TWICE DAILY NEEDED FOR ANXIETY Discharge Instructions Instructions: Hypokalemia (ED) Additional Instructions: Please follow up with your PCP and cardiology appointments as scheduled HPI General Date/Time Provider Initiated Documentation: 02/24/24 20:14 . Limitations to Documentation: no limitations . Information obtained by: patient . HPI Narrative: 39-year-old female with past medical history of recurrent chest pain presents for evaluation of chest pain. She reports that she was sitting and watching TV when she started having left-sided chest pressure with facial tingling and bilateral leg tingling. She denies any shortness of breath, diaphoresis or nausea. She reports that her symptoms kind of come and go. She has been evaluated multiple times recently for chest pain. She reports early cardiac issue with her father. She is a smoker. She denies any chest pain at present has Related Data Home Medications Medication Instructions Recorded Confirmed escitalopram oxalate 10 mg tablet 10 mg PO DAILY 01/10/24 02/12/24 lorazepam 0.5 mg tablet 0.5 mg PO BID 01/10/24 02/12/24 omeprazole 20 mg capsule,delayed 20 mg PO ONCE 01/10/24 02/12/24 release propranolol 10 mg tablet 10 mg PO BID 01/10/24 02/12/24 cyclobenzaprine 10 mg tablet 10 mg PO Q8H PRN 01/31/24 02/12/24 hydroxyzine HCl 10 mg tablet 20 mg PO BID PRN 01/31/24 02/12/24 metoprolol succinate 50 mg 50 mg PO ONCE 01/31/24 02/12/24 tablet,extended release 24 hr Allergies Allergy/AdvReac Type Severity Reaction Status Date / Time amoxicillin [Amoxicillin] Allergy Severe facial Verified 02/12/24 14:05 swelling cefuroxime [From Ceftin] Allergy Unknown Skin Rash Unverified 02/12/24 14:05 hydrocodone bitartrate AdvReac Severe Nausea, Verified 02/12/24 14:05 [From Vicodin] vomiting General Stated Complaint: Chest Pain WADE: 3 Exam Narrative Exam Narrative: Review of Systems: All systems reviewed & are unremarkable except as noted in HPI and below Well-developed, no acute distress NCAT PERRL, normal conjunctiva RRR, no murmur Unlabored respiratory effort, clear bilaterally Nondistended abdomen , soft non tender Extremities w/o deformity, no cyanosis, no edema No rashes or lesions. no focal neurologic deficits, no sensory change, good strength Appropriate mood and affect Course Vital Signs Vital signs: Vital Signs Temperature 36.6 C 02/24/24 20:11 Pulse 80 02/24/24 20:11 Respiratory Rate 20 02/24/24 20:11 Blood Pressure 174/110 H 02/24/24 20:11 Pulse Oximetry 98 02/24/24 20:11 Temperature 36.6 C 02/24/24 20:11 Temperature Source Tympanic 02/24/24 20:11 Pulse 85 02/24/24 20:31 Pulse 83 02/24/24 20:31 Respiratory Rate 18 02/24/24 20:31 Respiratory Effort Normal 02/24/24 20:39 Blood Pressure 139/92 H 02/24/24 20:31 Blood Pressure Mean 106 02/24/24 20:31 Blood Pressure Position Sitting 02/24/24 20:11 Pulse Oximetry 100 02/24/24 20:31 Oxygen Delivery Method Room Air 02/24/24 20:11 Oxygen Flow Rate 0 02/24/24 20:11 Pain Level 5 02/24/24 20:11 Lab/Test Results Lab/Test Results: Laboratory Tests Range/Units 02/24/24 20:25 WBC (4.4-10.8) 10^3/uL 6.05 RBC (3.93-5.22) 10^6/uL 4.13 Hgb (11.2-15.7) g/dL 12.4 Hct (36.0-46.0) % 36.9 MCV (80-95) fL 89 MCH (27.0-33.0) pg 30.0 MCHC (32.0-36.0) % 33.6 RDW (11.7-14.6) % 12.5 Plt Count (130-400) 10^3/uL 287 MPV (8.0-11.0) fL 9.1 Immature Gran % % 0.2 Neutrophils % % 55.1 Lymphocytes % % 36.0 Monocytes % % 5.8 Eosinophils % % 2.6 Basophils % % 0.3 Nucleated RBC % (0.0-0.3) % 0.0 Absolute Neutrophils (1.2-6.7) 10^3/uL 3.33 Absolute Lymphocytes (1.2-3.4) 10^3/uL 2.18 Absolute Monocytes (0.1-0.8) 10^3/uL 0.35 Absolute Eosinophils (0.0-0.7) 10^3/uL 0.16 Absolute Basophils (0.0-0.2) 10^3/uL 0.02 Sodium (136-145) mmol/L 141 Potassium (3.5-5.1) mmol/L 3.3 L Chloride (98-107) mmol/L 106 Carbon Dioxide (21.0-32.0) mmol/L 24.8 Anion Gap (3-11) mmol/L 10.2 BUN (7-18) mg/dL 14 Creatinine (0.55-1.02) mg/dL 0.7 Est GFR (CKD-EPI 2020) (mL/min/1.73m2) 114.16 Glucose (74-106) mg/dL 92 Calcium (8.5-10.1) mg/dL 8.7 Total Bilirubin (0.2-1.0) mg/dL 0.2 AST (15-37) U/L 26 ALT (14-59) U/L 56 Alkaline Phosphatase (46-116) U/L 68 Creatine Kinase (26-192) U/L 108 Troponin I (< or =60) ng/L < 50 Total Protein (6.4-8.2) g/dL 7.5 Albumin (3.4-5.0) g/dL 3.9 Medical Decision Making Emergent evaluation of chest pain. Patient has been evaluated multiple times over the last few weeks for chest pain and has had a recent 48-hour Holter monitor that demonstrated PVCs. Patient reports that she will be getting a 2- week Holter monitor to further evaluate her chest pain and that she has a stress test scheduled for Friday. Her history of chest pain tonight is not highly suspicious for cardiac etiology. Her EKG does not reveal acute ischemic changes or dynamic change from earlier this week. The patient does not have any change in her cardiac enzyme. Her potassium is slightly low and she was given a dose of oral potassium in the emergency department. The patient should follow-up with her PCP and cardiology outpatient as previously scheduled. Advised that she should quit smoking to reduce her risk for coronary disease Medical Records Medical records reviewed: Yes I reviewed the patient's medical records. Lab Data Lab results reviewed: Yes I reviewed the patient's lab results. 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) Arthralgia of right acromioclavicular joint (Acute 02/26/17) Right rotator cuff tendinitis (Acute 12/09/16) Patellar tendon strain (Acute) Patellar tendinitis of left knee (Acute) Pain of left knee after injury (Acute) Lesion of left femur (Acute) Surgical History History of tonsillectomy and adenoidectomy Ligation of fallopian tube Social History Smoking/Tobacco Use Status: Current every day Tobacco Type: e-cigarettes Smoking risk assessment performed?: Yes Alcohol Intake: current Alcohol Intake frequency: a few times a month Drug use: Never Substance use type: does not use Housing: house Do you feel safe at home: Yes Do you feel safe in your relationship?: Yes Female Reproductive History Menstrual control method: permanent sterilization History History 4 Para 4 Hx # Term Pregnancies Multiple births Hx # Pregnancies Ectopic pregnancies AB induced Hx Number of Living Children AB spontaneous Past Pregnancies Del. Date GA/Weeks # Preg Succ Route Wgt Sex Labor Lgth Anesth esia Location Prov Complic 08/01/04 40 No vaginal Female [facility] 05/01/07 40 No vaginal Female [facility] 08/16/09 40 No vaginal Male [facility] 06/07/12 40 No vaginal Female [facility]
== END 2024-02-24 22:15 | disposition home or self-care (01) ==
PROVIDERS: Emergency Provider Emergency Medicine; PCP Family Medicine
DX: R07.9 Chest pain, unspecified (principal); E87.6 Hypokalemia; F17.290 Nicotine dependence, other tobacco product, uncomplicated
CPT/HCPCS: 80053; 82550; 93005; 96374; 99284; 84484; 85025; 93010; J1885

== ENCOUNTER → 2024-03-01 00:42 | Outpatient (CLI) | payer MEDICAID, SELFPAY ==
--- NOTE | 2024-03-01 | ETT_ITS ---
APPROVED REPORT Exam: Exercise Treadmill Patient Location: Out-Patient Room/Bed: Ordering Provider:DEBORAH NGUYEN, Contact Number: [phone] BMI: 34.00 Baseline Rhythm: Sinus Rhythm Indications: JOHNSON, Chest Pain. Increased HR. Left scapula pain. Medical History Medical History: Palpitations, presyncope. Cardiac Medications: Propanolol, Metoprolol Allergies: amoxicillin, ceftin, vicodan. Cardiac Risk Factors: tobacco use. Pretest Chest Pain Characteristics: No chest pain Exercise History: Indeterminate Lung Sounds: Clear to auscultation Heart Sounds: Regular Stress Test Details Test: Exercise stress testing was performed using a Sreekanth protocol. Rest Stress HR Resting HR Supine: 81 bpm Max Heart Rate (APMHR): 183 bpm Resting HR Standin bpm Target HR (85% APMHR): 156 bpm Max HR Achieved: 156 bpm % of APMHR: 85 Recovery HR: 86 bpm HR response to stress: Normal HR response to stress BP Resting BP Supine: 116/78 mmHg Resting BP Standin/82 mmHg Max BP: 140/80 mmHg Recovery BP: 114/60 mmHg BP response to stress: Normal blood pressure response to stress. ECG Resting ECG: Sinus Rhythm Ectopy: none Stress ECG: Sinus Tachycardia ST Change: No significant ST segment changes noted Arrhythmia: None Recovery ECG: Sinus Rhythm Recovery ST Change: No significant ST segment changes noted Recovery Arrhythmia: None Clinical Reason for Termination: Fatigue, Dyspnea, Target HR Achieved Exercise duration: 07 min01 sec Highest Stage Reached: Stage 2: 2.5 mph at 12% grade. Exercise capacity: 8.62 METs Angina Score: None Brody Treadmill Score: 6.7 Rate Pressure Product: [id number] Stress ECG Conclusion 1. Resting EKG was normal 2. Patient exercised on the Sreekanth protocol and completed a workload of 8.62 METS 3. Normal heart rate and response to exercise. The patient achieved 85% of predicted heart rate for age 4. There was no electrocardiographic evidence of myocardial ischemia 5. There were no dysrhythmias Brody Treadmill Score is 6.7 which is Low risk. Stress Test Summary STAGE Time (mins) Speed (mph) Grade (%) HR BP SpO2 SYMPTOMS METS Supine 81 116/78 98 Standing 90 114/82 98 1 3 1.7 10 121 116/86 98 4.5 2 6 2.5 12 148 132/82 96 7 1 min recovery 124 140/80 97 3 min recovery 94 114/68 98 6 min recovery 86 114/60 97
== END ==
PROVIDERS: PCP Family Medicine; Visit Provider Family Medicine
DX: R06.09 Other forms of dyspnea (principal); R07.9 Chest pain, unspecified; R00.0 Tachycardia, unspecified; M25.512 Pain in left shoulder
CPT/HCPCS: 93017

== ENCOUNTER 2024-03-02 08:37 | Outpatient (CLI) | payer MEDICAID, SELFPAY | END 2024-03-02 08:38 | disposition home or self-care (01) | PROVIDERS: PCP Family Medicine; Visit Provider Family Medicine | DX: R00.2 Palpitations (principal) | CPT/HCPCS: 93270 ==

== ENCOUNTER 2024-03-02 09:09 | Outpatient (CLI) | payer MEDICAID, SELFPAY ==
[2024-03-05 17:18] LABS: Renin Activity, Plasma 1.8 ng/mL/h
[2024-03-05 19:00] LABS: Aldosterone, P <4.0 ng/dL (<=21)
[2024-03-08 17:06] LABS: Metanephrine, Free <0.20 nmol/L (<0.50); Normetanephrine, Free 0.58 nmol/L (<0.90)
== END 2024-03-02 09:10 | disposition home or self-care (01) ==
LOC: LBO 09:10
PROVIDERS: PCP Family Medicine; Visit Provider Family Medicine
DX: R03.0 Elevated blood-pressure reading, without diagnosis of hypertension (principal)
CPT/HCPCS: 36415; 82088; 82607; 82746; 83835; 84244

== ENCOUNTER 2024-03-08 15:23 | Outpatient (REF) | payer MEDICAID, SELFPAY ==
[2024-03-08 18:20] LABS: ESR < 1 mm/hr (0-20)
[2024-03-08 19:12] LABS: Vitamin B12 326 pg/mL (193-986)
[2024-03-08 19:38] LABS: C-Reactive Protein < 0.50 mg/dL (<or=0.5)
[2024-03-10 09:48] LABS: Cyclic Citrullinated Peptide <2.5 U/mL (<5.0)
[2024-03-10 15:32] LABS: ANA Interpretation Negative (Negative)
[2024-03-12 17:38] LABS: Anaplasma phagocytophilum Negative (Negative); B. miyamotoi PCR Negative (Negative); Babesia divergens/MO-1 Negative (Negative); Babesia duncani Negative (Negative); Babesia microti Negative (Negative); Ehrlichia chaffeensis Negative (Negative); Ehrlichia ewingii/canis Negative (Negative); Ehrlichia muris eauclairensis Negative (Negative)
== END 2024-03-08 15:24 | disposition home or self-care (01) ==
LOC: NCHCN 15:23
PROVIDERS: PCP Family Medicine; Visit Provider Family Medicine
DX: M25.59 Pain in other specified joint (principal); R20.2 Paresthesia of skin; Z11.8 Encounter for screening for other infectious and parasitic diseases
CPT/HCPCS: 85652; 86200; 87798; 82607; 82746; 86038; 86140

== ENCOUNTER 2024-04-02 09:22 | Outpatient (CLI) | payer MEDICAID, SELFPAY ==
--- NOTE | 2024-04-02 09:39 | W.CARDEVENT ---
Date of service: 04/02/24 Time of Service: 09:39 Cardiac Event Recorder Referring Provider:: Kita Clark Indications:: Palpitations Cardiac Event Note: This is a cardiac event monitor. Patient was monitored for 21 days and 20 Rhythm throughout was sinus. Average heart rate was 77. Minimum was 56. Maximum was 147 There were very rare isolated ventricular ectopic beats There was no atrial fibrillation, no high-grade AV block, no pauses greater than 3 seconds Symptoms were reported which corresponded to sinus rhythm
== END 2024-04-02 09:23 | disposition home or self-care (01) ==
LOC: CARDOPNVT 09:22
PROVIDERS: PCP Family Medicine; Visit Provider Internal Medicine Cardiovascular Disease
DX: R00.2 Palpitations (principal)

== ENCOUNTER 2024-04-16 10:47 | Outpatient (CLI) | payer MEDICAID, SELFPAY ==
--- OUTSIDE RECORDS SUMMARY | 2024-04-16 10:50 | XMS_ITS ---
Author Name Unknown Address [address] [place] [address] [phone] Phone Organization Unknown Address [address] [place] [address] [phone] Phone Care Team Providers Care Fibre Composite Technician Name Role Phone BRYANT MCCLELLAN Registered Nurse Unavailable ZAID Stephenson Attending Unavailable UNLISTED PROVIDER - REQUESTED Xhandoff Un available Results CT LUMBAR SPINE WO CONTRAST - Completed: 11/25/2023 12:27 LOINC: RADIOLOGY [place], [place] [address] PACS ASSISTANT PROFESSOR OF PHILOSOPHY REPORT Patient Name: GABO BOLIVAR MRN: Sex: : Age: [id number] F 1985 38 Account: Accession: Admit: StayType: [id number] 11/25/2023 E/R Ordered: Order ID: Submitted: Ordering Provider: 11/25/2023 12:01 [id number] BRIDGETTE LINDA Completed: Technologist: Resulted: 11/25/2023 12:27 KXR 11/25/2023 12:36 Study Description: CT LUMBAR SPINE WO CONTRAST Study Reason: Trauma Technique: Imaging Protocol: Axial computed tomography images with coronal and sagittal reformatted images were created and reviewed. Comparison: None. FINDINGS: Bones: The last intervertebral disc space is designated the L5/S1 level for the numbering purpose of this examination. The vertebral body heights are well maintained. Alignment is satisfactory. No lumbar spine fracture is identified. There is a triangular density at the anterior aspect of the right sacral ala. It appears to represent a fracture. It is of indeterminate acuity. No other fractures identified. Soft Tissues: The visualized SI joints and sacrum are will maintained. The paraspinal soft tissues are unremarkable. Note is made of left nephrolithiasis. IMPRESSION: 1. Triangular density at the anterior aspect of the right sacrum at the sacroiliac joint. The findings may represent a fracture. This is of indeterminate age. (Series 8 image 741). 2. No other fracture or dislocation is seen. 3. Findings were discussed with Dr. Edgar at 12:36 PM on 11/25/2023. Radiation Optimization: All CT scans at this facility use at least one of these dose optimization techniques: automated exposure control; mA and/or kV adjustment per patient size (includes targeted exams where dose is matched to clinical indication); or iterative reconstruction. Report Digitally Signed by Bridgette Garcia on 11/25/2023 12:36 PM EST Social History Type Status Start Date End Date Code Code Syst em Smoking History Current every day smoker 10/27/[address] Sex Female Vital Signs Vital Sign Value Unit [place] Value [place] Unit Date/Time Recent/Initial? Code Code System Body Mass Index 34.96 kg/m2 11/25/2023 11:33 Initial 88386 -5 LOINC Systolic Blood Pressure 139 mm[Hg] 11/25/2023 11:33 Initial 8480- 6 LOINC Diastolic Blood Pressure 86 mm[Hg] 11/25/2023 11:33 Initial 8462- 4 LOINC Body Surface Area 1.90 m2 11/25/2023 11:33 Initial 3140- 1 LOINC Height 154.940 0 cm 61.00 in 11/25/2023 11:33 Initial 8302- 2 LOINC O2 Saturation 100 % 2023 11:33 Initial 91511 -5 LOINC Pulse 84.0 /min 11/25/2023 11:33 Initial 8867- 4 LOINC Respiration 18 /min 11/25/19 11:33 Initial 9279- 1 [facility] Temperature 36.1 Mavis 97.0 F 11/25/19 11:33 Initial 8310- 5 [facility] Weight 83.91 kg 185.00 lbs 11/25/2023 11:33 Initial 52965 -7 [facility] Medications Medication Start Date End Date Route Frequency Dose Code Code System Medication Instructions Home Meds Ibuprofen 200MG Oral Tablet 11/25/2023 Unknown ORAL NEEDED THREE TIMES A DAY 4 TABLET 717248 RxNorm TAKE 3-4 TABLET ORAL THREE TIMES A DAY FOR 3 DAYS THEN NEEDED FOR PAIN Acetaminophen 500MG Oral Tablet 11/25/2023 Unknown ORAL NEEDED EVERY 6 HOURS 2 TABLET 553199 RxNorm TAKE 2 TABLET ORAL EVERY 6 HOURS FOR 1-2 DAYS THEN NEEDED FOR Fever/Pain Lidocaine 5% Topical application Patch, Extended Release 11/25/2023 Unknown TOPICAL APPLICATIO N DAILY 1 5346735 RxNorm 1-2 PATCHES TOPICAL APPLICATION DAILY, 12 hours on and 12 hours off per day Cyclobenzaprine 10MG Oral Tablet 11/25/2023 Unknown ORAL NEEDED EVERY 6 HOURS 1 TABLET 313683 RxNorm TAKE 1 TABLET ORAL NEEDED EVERY 6 HOURS FOR Pain/spasm diazePAM 5MG Oral Tablet 03/13/2024 Unknown ORAL BEDTIME 1 TABLET 287405 RxNorm TAKE 1 TABLET ORAL BEDTIME Assessment You had the following problems:OTHER LOW BACK PAIN Hospital Discharge Instructions Should you have any questions prior to discharge, please contact a member of your healthcare team. If you have left the hospital and have any questions, please contact your primary care physician. Reason For Referral No Data Found Problems Problem Start Date Resolved Date Status Code Code System OTHER LOW BACK PAIN active 853653055 SNOMED-CT Allergies and Adverse Reactions Allergy Substance Reaction Severity Start Date Concern Status Co de Code System AMOXICILLIN Moderate Active 723 RxNorm Plan of Treatment OUTPATIENT PLAN: Additional Physician Instructions: heat, mild stretches as discussed. Your prescription was electronically sent to [facility] in [place]. Discharge Medications Medication Dosage Route Frequency Prescribing MD Special Instructions Ibuprofen 200MG Oral Tablet (rrpl-hcj-tijdqzs) 4 TABLET ORAL NEEDED THREE TIMES A DAY ZAID Stephenson TAKE 3-4 TABLET ORAL THREE TIMES A DAY FOR 3 DAYS THEN NEEDED FOR PAIN Acetaminophen 500MG Oral Tablet ([id number]-dkq-hjmertb) 2 TABLET ORAL NEEDED EVERY 6 HOURS ZAID Stephenson TAKE 2 TABLET ORAL EVERY 6 HOURS FOR 1-2 DAYS THEN NEEDED FOR Fever/Pain Lidocaine 5% Topical application Patch, Extended Release TOPICAL APPLICATION DAILY ZAID Stephenson 1-2 PATCHES TOPICAL APPLICATION DAILY, 12 hours on and 12 hours off per day Cyclobenzaprine 10MG Oral Tablet 1 TABLET ORAL NEEDED EVERY 6 HOURS ZAID Stephenson TAKE 1 TABLET ORAL NEEDED EVERY 6 HOURS FOR Pain/spasm HOSPITAL COURSE AND TESTING: Medications given this visit: Ordered & Completed Meds Table Ordered Medication Start Date/Time Dosage Route Frequency Status KETOROLAC INJ SDV: 30MG/1ML 11/25/2023 11:59 60 MG IM OPTIONS X1 completed LIDOCAINE PATCH 5% 11/25/2023 13:10 2 PATCH TRANSDERMAL X1 active RADIOLOGY RESULTS: Study Description: CT LUMBAR SPINE WO CONTRAST Findings: Bones: The last intervertebral disc space is designated the L5/S1 level for the numbering purpose of this examination. The vertebral body heights are well maintained. Alignment is satisfactory. No lumbar spine fracture is identified. There is a triangular density at the anterior aspect of the right sacral ala. It appears to represent a fracture. It is of indeterminate acuity. No other fractures identified. Soft Tissues: The visualized SI joints and sacrum are will maintained. The paraspinal soft tissues are unremarkable. Note is made of left nephrolithiasis. Impression: 1. Triangular density at the anterior aspect of the right sacrum at the sacroiliac joint. The findings may represent a fracture. This is of indeterminate age. (Series 8 image 741). 2. No other fracture or dislocation is seen. Encounters Encounter Diagnosis Start Date Code Code Sys tem Low back pain 11/25/2023 041913950 [facility] TansOMED-CT Personal Care Team Section Performer Name Performer Role Active Date Inactive Da dima
--- OUTSIDE RECORDS SUMMARY | 2024-04-16 10:51 | XMS_ITS ---
Author Name Unknown Address [address] [place] [address] [phone] Phone Organization Unknown Address [address] [place] [address] [phone] Phone Care Team Providers Care Art Teacher Name Role Phone SHARON BECERRA Registered Nurse Unavailable FLOR CARRASCO Attending Unavailable PATRICK Vivas Primary Unavailable UNLISTED PROVIDER - REQUESTED Xhandoff Un available Social History Type Status Start Date End Date Code Code Syst em Smoking History Current every day smoker 10/27/[address] Sex Female Vital Signs Vital Sign Value Unit [place] Value [place] Unit Date/Time Recent/Initial? Code Code System Body Mass Index 34.96 kg/m2 03/13/2024 21:36 Initial 30956 -5 LOINC Systolic Blood Pressure 121 mm[Hg] 03/13/2024 23:01 Most Recent 8480- 6 LOINC Diastolic Blood Pressure 83 mm[Hg] 03/13/2024 23:01 Most Recent 8462- 4 LOINC Systolic Blood Pressure 164 mm[Hg] 03/13/2024 21:36 Initial 8480- 6 LOINC Diastolic Blood Pressure 110 mm[Hg] 03/13/2024 21:36 Initial 8462- 4 LOINC Body Surface Area 1.90 m2 03/13/2024 21:36 Initial 3140- 1 LOINC Height 154.940 0 cm 61.00 in 03/13/2024 21:36 Initial 8302- 2 LOINC O2 Saturation 100 % 2023 23:01 Most Recent 15671 -5 LOINC O2 Saturation 100 % 2023 21:36 Initial 77844 -5 LOINC Pulse 73.0 /min 03/13/2024 23:01 Most Recent 8867- 4 LOINC Pulse 82.0 /min 03/13/2024 21:36 Initial 8867- 4 LOINC Respiration 20 /min 03/13/20 23:01 Most Recent 9279- 1 LOINC Respiration 18 /min 03/13/20 21:36 Initial 9279- 1 LOINC Temperature 36.2 Mavis 97.2 F 03/13/20 21:36 Initial 8310- 5 LOINC Weight 83.91 kg 185.00 lbs 03/13/2024 21:36 Initial 38063 -7 LOINC Medications Medication Start Date End Date Route Frequency Dose Code Code System Medication Instructions Home Meds Ibuprofen 200MG Oral Tablet 11/25/2023 Unknown ORAL NEEDED THREE TIMES A DAY 4 TABLET 007804 RxNorm TAKE 3-4 TABLET ORAL THREE TIMES A DAY FOR 3 DAYS THEN NEEDED FOR PAIN Acetaminophen 500MG Oral Tablet 11/25/2023 Unknown ORAL NEEDED EVERY 6 HOURS 2 TABLET 841908 RxNorm TAKE 2 TABLET ORAL EVERY 6 HOURS FOR 1-2 DAYS THEN NEEDED FOR Fever/Pain Lidocaine 5% Topical application Patch, Extended Release 11/25/2023 Unknown TOPICAL APPLICATIO N DAILY 1 7449185 RxNorm 1-2 PATCHES TOPICAL APPLICATION DAILY, 12 hours on and 12 hours off per day Cyclobenzaprine 10MG Oral Tablet 11/25/2023 Unknown ORAL NEEDED EVERY 6 HOURS 1 TABLET 171402 RxNorm TAKE 1 TABLET ORAL NEEDED EVERY 6 HOURS FOR Pain/spasm diazePAM 5MG Oral Tablet 03/13/2024 Unknown ORAL BEDTIME 1 TABLET 896372 RxNorm TAKE 1 TABLET ORAL BEDTIME Assessment [...] Code System OTHER LOW BACK PAIN active 974444923 SNOMED-CT Allergies and Adverse Reactions Allergy Substance Reaction Severity Start Date Concern Status Co de Code System AMOXICILLIN Moderate Active 723 RxNorm Plan of Treatment No Data Found Personal Care Team Section Performer Name Performer Role Active Date Inactive Da dima
--- OUTSIDE RECORDS SUMMARY | 2024-04-16 10:51 | XMS_ITS ---
Author Name Unknown Address [address] [place] [address] [phone] Phone Organization Unknown Address [address] [place] [address] [phone] Phone Care Team Providers Care Public Transit Trolley Driver Name Role Phone MALIK WAY Registered Nurse Unavailable SÁNCHEZ BLACKWELL Attending Unavailable LETTY Early ER Unavailable PATRICK Vivas Primary Unavailable UNLISTED PROVIDER - REQUESTED Xhandoff Un available Results TEST QUAL (URINE) - Collect Date/Time: 12/21/2023 11:45 [facility] ID: [id number] [address] [place] [address], [address] LOINC: 2106-3 Test Value Unit Reference Range Code Code System Flag TEST NEGATIVE 6-3 LOINC URINALYSIS WITH REFLEX CULT IF POSITIVE* - Collect Date/Time: 12/21/2023 11:45 [facility] ID: [id number] [address] [place] [address], [address] LOINC: 44264-2 Test Value Unit Reference Range Code Code System Flag COLLECTION MODE: CLEAN CATCH 84650-1 LOINC Color STRAW yellow 5778-6 LOINC Appearance CLEAR clear 5767-9 LOINC Glucose urine NEGATIVE negative mg/dl 60079-8 LOINC Bilirubin NEGATIVE negative 5770-3 LOINC Ketones 15 negative mg/dl 2514-8 LOINC A Spec gravity <=1.005 1.003 - 1.030 5811-5 LOINC pH urine 6.5 5.0 - 7.0 2756-5 LOINC Protein NEGATIVE negative mg/dl 42631-3 LOINC Urobilinogen 0.2 <or= 1 EU/dl 47627-2 LOINC Nitrite. NEGATIVE negative 5802-4 LOINC Blood NEGATIVE negative 5794-3 LOINC Leukocytes. SMALL negative A MICROSCOPIC INDICATED WBCs. 5-10 0-5 / hpf 53064-0 LOINC RBCs none 0-5 / hpf 67606-4 LOINC Epith cells 5-10 0-5 / hpf 40441-8 LOINC Cell types squamous Crystals none none Bacteria minimal none Mucus none none 8247-9 LOINC Casts none none /lpf 42085-4 LOINC Other 49375-0 LOINC CULT URINE CULTURE* - [facility] t Date/Time: 12/21/2023 11:45 [facility] ID: [id number] [address] [place], [place], [id number] LOINC: 630-4 Test Value Unit Reference Range Code Code System Flag COLLECTION MODE: CLEAN CATCH 82618-3 LOINC CBC W/ DIFFERENTIAL* - [facility] ct Date/Time: 12/21/2023 11:20 [facility] ID: [id number] [address] [place] [address], [address] LOINC: 65093-0 Test Value Unit Reference Range Code Code System Flag WBC 4.85 th/cmm L=5.00 H=10.00 6690-2 LOINC L NEUT % 61.9 % L=40.0 H=80.0 LYMPH % 29.5 % L=10.0 H=50.0 MONO % 4.7 % L=2.0 H=12.0 24700-7 LOINC EOS % 2.9 % L=0.0 H=8.0 BASO % 0.6 % L=0.0 H=3.0 IG % 0.4 % L=0.0 H=1.1 2514-8 LOINC NRBC % 0.0 % L=0.0 H=0.0 93112-7 LOINC NEUT abs count 3.0 th/cmm L=1.6 H=8.4 751-8 LOINC LYMPH abs count 1.4 th/cmm L=1.5 H=4.0 731-0 LOINC L MONO abs count 0.2 th/cmm L=0.2 H=1.0 742-7 LOINC EOS abs count 0.1 th/cmm L=0.0 H=0.5 711-2 LOINC BASO abs count 0.0 th/cmm L=0.0 H=0.2 704-7 LOINC IG abs count 0.0 th/cmm L=0.0 H=0.1 12792-2 LOINC NRBC abs count 0.0 mil/cmm L=0.0 H=0.0 48299-6 LOINC RBC 4.40 mil/cmm L=3.90 H=5.40 789-8 LOINC HEMOGLOBIN 13.1 gm/dL L=12.0 H=16.0 718-7 LOINC HEMATOCRIT 39 % L=37 H=47 4544-3 LOINC MCV 89 fL L=82 H=92 787-2 LOINC MCH 29.8 pg L=27.0 H=31.0 785-6 LOINC MCHC 33.6 % L=32.0 H=36.0 786-4 LOINC RDW-SD 40.0 fL L=39.0 H=49.0 788-0 LOINC PLATELET COUNT 275 th/cmm L=150 H=450 777-3 LOINC THYROID TESTING CASCADE* - C ollect Date/Time: 12/21/2023 11:20 [facility] ID: [id number] [address] [place] [address], [address] LOINC: 3016-3 Test Value Unit Reference Range Code Code System Flag TSH. 1.914 uIU/mL L=0.360 H=3.740 3014-8 [facility] COMPREHENSIVE METABOLIC PANE L (CMP) - Collect Date/Time: 12/21/2023 11:20 [facility] ID: [id number] [address] [place] [address], [address] LOINC: 45539-9 Test Value Unit Reference Range Code Code System Flag GLUCOSE 82 mg/dL L=70 H=116 2345-7 LOINC BUN 10 mg/dL L=6 H=25 3094-0 LOINC CREATININE 0.80 mg/dL L=0.51 H=0.95 2160-0 LOINC SODIUM SERUM 137 mmol/L L=136 H=145 2951-2 LOINC POTASSIUM SERUM 3.9 mmol/L L=3.4 H=5.2 2823-3 LOINC CHLORIDE SERUM 103 mmol/L L=96 H=110 2075-0 LOINC CARBON DIOXIDE (CO2) 25 mmol/L L=22 H=34 2028-9 LOINC ANION GAP 8.8 mmol/L 88903-8 LOINC CALCIUM SERUM 8.4 mg/dL L=8.2 H=10.2 11794-2 LOINC BILIRUBIN TOTAL 0.6 mg/dL L=0.0 H=1.3 1975-2 LOINC ALK. PHOS. 61 U/L L=46 H=116 6768-6 LOINC SGOT (AST) 12 U/L L=15 H=37 1920-8 LOINC L SGPT (ALT) 28 U/L L=12 H=78 1742-6 LOINC TOTAL PROTEIN 7.5 gm/dL L=6.0 H=8.0 2885-2 LOINC ALBUMIN 4.0 gm/dL L=3.4 H=5.0 1751-7 LOINC AGE 38 years eGFR (non-Afr.Amer.) 81 mL/min 52237-5 LOINC eGFR (Afr-Argentine) 98 mL/min 02997-3 LOINC TROPONIN HIGH SENSITIVITY* - Collect Date/Time: 12/21/2023 11:20 [facility] ID: [id number] [address] [place], [place], [address] LOINC: 26517-6 Test Value Unit Reference Range Code Code System Flag TROPONIN HS < 4.0 pg/mL L=0.0 H=60.4 Specimen seq. RANDOM Social History Type Status Start Date End Date Code Code Syst em Smoking History Current every day smoker 10/27/[address] Sex Female Vital Signs Vital Sign Value Unit [place] Value [place] Unit Date/Time Recent/Initial? Code Code System Body Mass Index 34.96 kg/m2 12/21/2023 10:48 Initial 51482 -5 LOINC Systolic Blood Pressure 120 mm[Hg] 12/21/2023 13:00 Most Recent 8480- 6 LOINC Diastolic Blood Pressure 86 mm[Hg] 12/21/2023 13:00 Most Recent 8462- 4 LOINC Systolic Blood Pressure 129 mm[Hg] 12/21/2023 10:48 Initial 8480- 6 LOINC Diastolic Blood Pressure 86 mm[Hg] 12/21/2023 10:48 Initial 8462- 4 LOINC Body Surface Area 1.90 m2 12/21/2023 10:48 Initial 3140- 1 LOINC Height 154.940 0 cm 61.00 in 12/21/2023 10:48 Initial 8302- 2 INC O2 Saturation 99 % 2023 13:00 Most Recent 71130 -5 LOINC O2 Saturation 100 % 2023 10:48 Initial 73014 -5 LOINC Pulse 72.0 /min 12/21/2023 13:00 Most Recent 8867- 4 INC Pulse 85.0 /min 12/21/2023 10:48 Initial 8867- 4 LOINC Respiration 18 /min 12/21/19 13:00 Most Recent 9279- 1 INC Respiration 20 /min 12/21/19 10:48 Initial 9279- 1 LOINC Temperature 36.7 Mavis 98.1 F 12/21/19 10:48 Initial 8310- 5 LOINC Weight 83.91 kg 185.00 lbs 12/21/2023 10:48 Initial 47297 -7 [facility] Medications Medication Start Date End Date Route Frequency Dose Code Code System Medication Instructions Home Meds Ibuprofen 200MG Oral Tablet 11/25/2023 Unknown ORAL NEEDED THREE TIMES A DAY 4 TABLET 457023 RxNorm TAKE 3-4 TABLET ORAL THREE TIMES A DAY FOR 3 DAYS THEN NEEDED FOR PAIN Acetaminophen 500MG Oral Tablet 11/25/2023 Unknown ORAL NEEDED EVERY 6 HOURS 2 TABLET 727982 RxNorm TAKE 2 TABLET ORAL EVERY 6 HOURS FOR 1-2 DAYS THEN NEEDED FOR Fever/Pain Lidocaine 5% Topical application Patch, Extended Release 11/25/2023 Unknown TOPICAL APPLICATIO N DAILY 1 7510194 RxNorm 1-2 PATCHES TOPICAL APPLICATION DAILY, 12 hours on and 12 hours off per day Cyclobenzaprine 10MG Oral Tablet 11/25/2023 Unknown ORAL NEEDED EVERY 6 HOURS 1 TABLET 523471 RxNorm TAKE 1 TABLET ORAL NEEDED EVERY 6 HOURS FOR Pain/spasm diazePAM 5MG Oral Tablet 03/13/2024 Unknown ORAL BEDTIME 1 TABLET 150461 RxNorm TAKE 1 TABLET ORAL BEDTIME Assessment [...] Code System OTHER LOW BACK PAIN active 637979074 SNOMED-CT Allergies and Adverse Reactions Allergy Substance Reaction Severity Start Date Concern Status Co de Code System AMOXICILLIN Moderate Active 723 RxNorm Plan of Treatment No Data Found Encounters Encounter Diagnosis Start Date Code Code Sys tem Strain of muscle at thorax level 12/21/2023 49782327 5 SNOMED-CT Personal Care Team Section Performer Name Performer Role Active Date Inactive Da te
[2024-04-16 14:15] LABS: TSH (W/Ref FT4) 1.34 uIU/mL (0.36-3.74); Vitamin D 25 Total 23.2 ng/mL (30-100)
[2024-04-19 11:31] LABS: ANA Interpretation Negative (Negative)
[2024-04-19 12:29] LABS: Albumin 61.5 % (55.8-66.1); Albumin g/dL 4.4 g/dL (3.6-5.2); Total Protein 7.2 g/dL (6.3-8.2)
== END 2024-04-16 10:48 | disposition home or self-care (01) ==
LOC: LBO 10:48
PROVIDERS: PCP Family Medicine; Visit Provider Nurse Practitioner Primary Care
DX: R20.2 Paresthesia of skin (principal); M79.10 Myalgia, unspecified site
CPT/HCPCS: 36415; 82306; 82175; 82300; 83655; 83825; 84165; 84443; 86038

== ENCOUNTER 2024-04-16 23:24 | Emergency (ER) | payer MEDICAID, SELFPAY ==
[2024-04-16] VITALS (21 sets, daily range): BP systolic 149–164; BP diastolic 100–112; PULSE 74–75; RESP 9–23; TEMP 36.6; O2SAT 97–100
--- NOTE | 2024-04-16 23:15 | RT.EKG_ITS ---
APPROVED REPORT Exam: Resting ECG Reason for Exam: chest pain Patient Location: E HR:68 bpm ECG Measurements Heart Rate 68 AXIS IN 155 P 37 QRSd 105 QRS 2 QT 422 T 3 QTc 451 Conclusion Sinus rhythm...normal P axis, V-rate 60- [address] segment or t wave abnormalitites to suggest occlusive mi
--- NOTE | 2024-04-16 23:30 | ED.GENADUL_ITS ---
Discharge Plan Disposition Patient Disposition: Home Condition: Good Discharge Details Clinical Impression: Atypical chest pain Primary Care Provider: Kita Clark ED Provider: Hyun Espinosa Home Meds and New Rx's Prescriptions: Continued eletriptan 40 mg tablet See Rx Instructions PO .COMPLEX Rx Instructions: take 1 tab at onset of headache; if no relief, may repeat 1 tab after at least 2 hrs; max = 2 tabs/24 hrs PO amlodipine 5 mg tablet 5 mg PO DAILY Patient Comments: TAKE 1 TABLET BY MOUTH EVERY DAY FOR ESSENTIAL HYPERTENSION omeprazole 40 mg capsule,delayed release(DR/EC) 40 mg PO DAILY Patient Comments: TAKE 1 CAPSULE BY MOUTH EVERY DAY valsartan 320 mg tablet 320 mg PO DAILY Patient Comments: TAKE 1 TABLET BY MOUTH EVERY DAY FOR HIGH BLOOD PRESSURE sertraline 25 mg tablet 25 mg PO DAILY Patient Comments: TAKE 1 TABLET BY MOUTH DAILY lorazepam 0.5 mg tablet 0.5 mg PO BID Patient Comments: TAKE 1 TABLET BY MOUTH TWICE DAILY NEEDED hydroxyzine HCl 10 mg tablet 20 mg PO BID PRN Patient Comments: TAKE 1 TO 2 TABLETS BY MOUTH TWICE DAILY NEEDED FOR ANXIETY Discharge Instructions Instructions: Chest Pain, Adult ED Additional Instructions: Call your primary care doctor on Friday to schedule an appointment for early that week to follow up on your visit here. Discuss your blood pressure which is high here today, and your potassium which was low. Return to the emergency department for new or worsening symptoms including new/different/worse chest pain, difficulty breathing, feeling like you are going to pass out, or if you have any other concerns. Referrals: Kita Clark MD [Primary Care Provider] - [facility] Mode of arrival: ambulatory . Date/Time Provider Initiated Documentation: 04/16/24 23:26 . Limitations to Documentation: no limitations . Information obtained by: patient and old records reviewed . HPI Narrative: 39yo F with hx of HTN & atypical chest pain presenting with chest pain. Pain has been present on and off all day. Pain is moderate, located in her left chest, is varying sharp or dull, and radiates down her whole left side including both arm and leg. Tried tylenol without improvement. No aggravating factors. She is otherwise in her usual state of health with no fevers, chills, rash, shortness of breath, neck pain, back pain, numbness, tingling, weakness, or other concerns. Related Data Home Medications Medication Instructions Recorded Confirmed lorazepam 0.5 mg tablet 0.5 mg PO BID 01/10/24 04/16/24 hydroxyzine HCl 10 mg tablet 20 mg PO BID PRN 01/31/24 04/16/24 eletriptan 40 mg tablet See Rx Instructions PO .COMPLEX 03/08/24 04/16/24 amlodipine 5 mg tablet 5 mg PO DAILY 04/16/24 04/16/24 omeprazole 40 mg capsule,delayed 40 mg PO DAILY 04/16/24 04/16/24 release sertraline 25 mg tablet 25 mg PO DAILY 04/16/24 04/16/24 valsartan 320 mg tablet 320 mg PO DAILY 04/16/24 04/16/24 Allergies Allergy/AdvReac Type Severity Reaction Status Date / Time amoxicillin [Amoxicillin] Allergy Severe facial Verified 04/16/24 23:33 swelling cefuroxime [From Ceftin] Allergy Unknown Skin Rash Unverified 04/16/24 23:33 hydrocodone bitartrate AdvReac Severe Nausea, Verified 04/16/24 23:33 [From Vicodin] vomiting General WADE: 3 Review of Systems Narrative: see HPI Exam Narrative Exam Narrative: General: Alert, well appearing, well nourished, in no acute distress. Head: Normocephalic, atraumatic Neck: Trachea midline, ?Neck supple. Chest: Nontender. Cardiac: ?RRR, no murmurs appreciated Resp: No respiratory distress. CTAB. Abd: ?Soft, non-distended, nontender : ?No suprapubic tenderness. No CVA tenderness. Extremities: ?No deformities.? No peripheral edema.2+ radial pulses symmetric bilaterally. Neurologic: GCS 15. ? Moves all extremities freely against gravity. Sensation intact and symmetric multiple dermatomes upper and lower extremitites. Medical Decision Making 39yo F with hx of HTN & atypical chest pain presenting with chest pain. Moderate, intermittent, sharp, left sided, radiating to LUE & LLE. Feels similar to prior episodes. Hypertensive on arrival, vital signs otherwise reassuring. Benign physical exam, normal neurologic exam, good pulses, clear lungs. [facility] records reviewed; prior cardiac workup includes recent 21 day HOLTER monitor as well as negative exercise stress test on 03/01/24. Low suspicion for ACS; will evaluate further for potential causes with EKG and labs. Not suggestive of aortic dissection or pulmonary embolism; would not get dimer or CT imaging. EKG on arrival SR, appropriate intervals, no ST segment or T wave abnormalities to suggest occlusive AK CXR independently reviewed, no focal pneumonia or pneumothorax on my view, agree with radiology read below. Labs reviewed as below, CBC reassuring with no leukoctysois or anemia, CMP with mild hypokalemia at 3.1 and no other actionable abnormalities, lipase normal, not , troponin negative. HEART score 1 for risk factors; would not further pursue ACS with repeat troponins. Toradol for pain, potassium replaced orally. Repeat VS improved. Exam remains reassuring. Mild improvement in pain. Unclear etiology of symptoms but with reassuring workup appropriate for outpatient followup with PCP. Discharged home; discharge instructions and retur n precautions were reviewed with patient who verbalized understanding. All questions were answered and she is in full agreement with the plan. Imaging Data Radiologic Study: Imaging: X-Ray Radiologist's impression: IMPRESSION: No acute findings. Lab Data Lab results reviewed: Yes I reviewed the patient's lab results. Labs: Laboratory Tests Range/Units 04/16/24 23:04 WBC (4.4-10.8) 10^3/uL 5.26 RBC (3.93-5.22) 10^6/uL 4.15 Hgb (11.2-15.7) g/dL 12.5 Hct (36.0-46.0) % 37.3 MCV (80-95) fL 90 MCH (27.0-33.0) pg 30.1 MCHC (32.0-36.0) % 33.5 RDW (11.7-14.6) % 11.9 Plt Count (130-400) 10^3/uL 319 MPV (8.0-11.0) fL 9.4 Immature Gran % % 0.2 Neutrophils % % 48.6 Lymphocytes % % 40.7 Monocytes % % 8.0 Eosinophils % % 1.9 Basophils % % 0.6 Nucleated RBC % (0.0-0.3) % 0.0 Absolute Neutrophils (1.2-6.7) 10^3/uL 2.56 Absolute Lymphocytes (1.2-3.4) 10^3/uL 2.14 Absolute Monocytes (0.1-0.8) 10^3/uL 0.42 Absolute Eosinophils (0.0-0.7) 10^3/uL 0.10 Absolute Basophils (0.0-0.2) 10^3/uL 0.03 Sodium (136-145) mmol/L 139 Potassium (3.5-5.1) mmol/L 3.1 L Chloride (98-107) mmol/L 103 Carbon Dioxide (21.0-32.0) mmol/L 27.3 Anion Gap (3-11) mmol/L 8.7 BUN (7-18) mg/dL 10 Creatinine (0.55-1.02) mg/dL 0.6 Est GFR (CKD-EPI 2020) (mL/min/1.73m2) 118.49 Glucose (74-106) mg/dL 95 Calcium (8.5-10.1) mg/dL 8.7 Total Bilirubin (0.2-1.0) mg/dL 0.33 AST (15-37) U/L 10 L ALT (14-59) U/L 18 Alkaline Phosphatase (46-116) U/L 60 Troponin I (< or =60) ng/L < 50 Total Protein (6.4-8.2) g/dL 6.8 Albumin (3.4-5.0) g/dL 3.7 Lipase (16-77) U/L 33 Beta HCG, Quant (1-3) mIU/mL < 1 L Quality:SDOH Health Related Social Needs: No Data to Display PFSH All Active Problems (Updated 04/17/24 @ 02:56 by Hyun Espinosa MD) Atypical chest pain (Acute) Pelvic pain (Acute) Frontal headache (Acute) Tailor's bunionette, right (Acute) UTI (urinary tract infection) (Acute) 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) Arthralgia of right acromioclavicular joint (Acute 02/26/17) Right rotator cuff tendinitis (Acute 12/09/16) Patellar tendon strain (Acute) Patellar tendinitis of left knee (Acute) Pain of left knee after injury (Acute) Lesion of left femur (Acute) Medical History (Updated 04/17/24 @ 02:56 by Hyun Espinosa MD) Normal colposcopy Tailors bunion History of cervical dysplasia Obesity Migraine Right sided sciatica Low back pain Condyloma acuminata Insomnia Facial paresthesia Altered bowel function Hyperglycemia Recurrent major depression Daily nausea Pain in left arm Generalized anxiety disorder with panic attacks Indigestion Atypical chest pain Essential hypertension Surgical History History of tonsillectomy and adenoidectomy Ligation of fallopian tube Family History (Updated 03/04/24 @ 13:19 by Patricia Hickey) Mother Family history of anxiety disorder Maternal Grandfather Heart disease Social History (Updated 03/04/24 @ 13:20 by Patricia Hickey) Smoking/Tobacco Use Status: Current every day Tobacco Type: e-cigarettes Smoking risk assessment performed?: Yes Alcohol Intake: current Alcohol Intake frequency: a few times a month Drug use: Never Substance use type: does not use Housing: house Do you feel safe at home: Yes Do you feel safe in your relationship?: Yes Female Reproductive History Menstrual control method: permanent sterilization History History 4 Para 4 Hx # Term Pregnancies Multiple births Hx # Pregnancies Ectopic pregnancies AB induced Hx Number of Living Children AB spontaneous Past Pregnancies Del. Date GA/Weeks # Preg Succ Route Wgt Sex Labor Lgth Anesth esia Location Prov Complic 08/01/04 40 No vaginal Female [facility] 05/01/07 40 No vaginal Female [facility] 08/16/09 40 No vaginal Male [facility] 06/07/12 40 No vaginal Female [facility]
[2024-04-17] VITALS (17 sets, daily range): BP systolic 138–147; BP diastolic 97–110; PULSE 68–71; RESP 9–17; TEMP 36.5; O2SAT 92–100
--- NOTE | 2024-04-17 | DI.RAD_ITS ---
Exam(s) XR CHEST 2V PA LATERAL EXAM: XR CHEST 2V PA LATERAL CLINICAL HISTORY: chest pain TECHNIQUE: 2D digital imaging was performed. Two views. COMPARISON: CR,XR XR CHEST 2V PA LATERAL from 02/08/2024 FINDINGS: Leads overlie the chest. HEART: Normal size. Aorta: Not dilated. PULMONARY VASCULATURE: Normal. MEDIASTINUM: Unremarkable. LUNGS: Clear. PLEURAL SPACE: No pleural effusion or pneumothorax. BONE:Unremarkable for age. SOFT TISSUES: Unremarkable. IMPRESSION: No acute abnormality. DATA REPOSITORY: RADIATION DOSE DELIVERED:
[2024-04-17] MEDS: Ketorolac 15 MG/ML VIAL IVP (00:20)
[2024-04-17 00:33] LABS: Abs Immature Grans 0.01 10^3/uL (0.0-0.06); Absolute Basophil Count 0.03 10^3/uL (0.0-0.2); Absolute Lymphocyte Count 2.14 10^3/uL (1.2-3.4); Absolute Monocyte Count 0.42 10^3/uL (0.1-0.8); Absolute Neutrophil Count 2.56 10^3/uL (1.2-6.7); Basophils % 0.6 %; Eosinophils % 1.9 %; HCT 37.3 % (36.0-46.0); HGB 12.5 g/dL (11.2-15.7); Immature Grans % 0.2 %; Lymphocytes % 40.7 %; MCH 30.1 pg (27.0-33.0); MCHC 33.5 % (32.0-36.0); MCV 90 fL (80-95); MPV 9.4 fL (8.0-11.0); Neutrophils % 48.6 %; Platelet Count 319 10^3/uL (130-400); RBC 4.15 10^6/uL (3.93-5.22); RDW 11.9 % (11.7-14.6); RDW-SD 39.1 fL; WBC 5.26 10^3/uL (4.4-10.8)
[2024-04-17 00:50] LABS: Lipase 33 U/L (16-77)
[2024-04-17 00:59] LABS: ALT 18 U/L (14-59); AST 10 U/L (15-37); Albumin 3.7 g/dL (3.4-5.0); Alkaline Phosphatase 60 U/L (46-116); Anion Gap 8.7 mmol/L (3-11); BUN 10 mg/dL (7-18); Bilirubin, Total 0.33 mg/dL (0.2-1.0); CO2 27.3 mmol/L (21.0-32.0); CREATININE 0.6 mg/dL (0.55-1.02); Calcium 8.7 mg/dL (8.5-10.1); Chloride 103 mmol/L (98-107); Estimated GFR 118.49 (mL/min/1.73m2); Glucose 95 mg/dL (74-106); Potassium 3.1 mmol/L (3.5-5.1); Sodium 139 mmol/L (136-145); Total Protein 6.8 g/dL (6.4-8.2)
[2024-04-17 01:00] LABS: HCG Quant, Pregnancy < 1 mIU/mL (1-3); Troponin I < 50 ng/L (< or =60)
--- NOTE | 2024-04-17 01:52 | DI.VRAD_ITS ---
PROCEDURE INFORMATION: Exam: XR Chest Exam date and time: 04/17/2024 12:09 AM Age: 39 years old Clinical indication: Pain; Left-sided TECHNIQUE: Imaging protocol: Radiologic exam of the chest. Views: 2 views. COMPARISON: CR XR CHEST 2V PA LATERAL 02/08/2024 10:24 PM FINDINGS: Lungs: Lungs are adequately inflated and symmetric. No focal consolidation or evidence of pulmonary edema. Pleural spaces: No pleural effusion. No pneumothorax. Heart/Mediastinum: Cardiomediastinal contours within normal limits. Bones/joints: No acute osseous finding. IMPRESSION: No acute findings. Dictated and Authenticated by: Killian Cortez MD. Ordering:BENNY Purvis MD
[2024-04-17] MEDS: Potassium Chloride Liquid 20 MEQ PKT 40 MEQ PO (02:25)
== END 2024-04-17 03:03 | disposition home or self-care (01) ==
PROVIDERS: Emergency Provider Student in an Organized Health Care Education/Training Program; PCP Family Medicine
DX: R07.89 Other chest pain (principal); E87.6 Hypokalemia; I10 Essential (primary) hypertension; F17.290 Nicotine dependence, other tobacco product, uncomplicated
CPT/HCPCS: 80053; 83690; 93005; 96374; 99285; 71046; 84484; 84702; 85025; 93010; 99284; J1885

== ENCOUNTER 2024-04-21 13:06 | Outpatient (CLI) | payer MEDICAID, SELFPAY ==
[2024-04-22 20:21] LABS: Arsenic 1 ng/mL (<13); Cadmium 0.4 ng/mL (<5.0); Mercury 1 ng/mL (<10); Patient Race White; Patient State Vermont; Submitting Laboratory Phone 802-748-7458; Venous/Capillary Venous
== END 2024-04-21 13:07 | disposition home or self-care (01) ==
LOC: LBO 13:06
PROVIDERS: PCP Family Medicine; Visit Provider Nurse Practitioner Primary Care
DX: R20.2 Paresthesia of skin (principal); M79.10 Myalgia, unspecified site
CPT/HCPCS: 36415; 82175; 82300; 83655; 83825

== ENCOUNTER 2024-06-09 01:18 | Outpatient (CLI) | payer MEDICAID, SELFPAY ==
--- NOTE | 2024-06-09 06:45 | DI.NM_ITS ---
Exam(s) NM HEPATOBILIARY CCK GRP EXAM: NM HEPATOBILIARY CCK GRP CLINICAL HISTORY: epigastric abd pain/nausea/diarrhea,r11.0,r19.7,r10.13. TECHNIQUE: Injected dose: 5 mCi Tc-99 mebrofenin Initial dynamic images: 60 minutes Post-Gallbladder fillin.3 mcg CCK intravenously according to protocol. Addition images: 20 minute dynamic during CCK administration. COMPARISON: US US ABDOMEN from 01/21/2024 FINDINGS: Normal hepatic transit time. Prompt excretion into the small bowel. Prompt excretion into the gallbladder. The gallbladder ejection fraction is 34 percent. ([facility] khushboo l is greater than 40 percent). IMPRESSION: 1. Reduced gallbladder ejection fraction. This can be seen with impaired gallbladder emptying and ga llbladder dysfunction. SNM guidelines: Gallbladder visualization should be present by 3 hours. Delayed [id number]-si-epbxi chong sit beyond 60 min raises the suspicion for partial common bile duct (CBD) obstruction.
[2024-06-09] MEDS: Sincalide 5 MCG VIAL 1.3 MCG IJ (11:36)
== END 2024-06-09 01:38 ==
LOC: DI 01:18
PROVIDERS: PCP Family Medicine; Visit Provider Surgery
DX: R73.9 Hyperglycemia, unspecified; R10.13 Epigastric pain
CPT/HCPCS: 78227; J2805

== ENCOUNTER 2024-07-13 09:39 | Day surgery (SDC) | payer MEDICAID, SELFPAY ==
--- NOTE | 2024-07-12 10:38 | W.PM.DSUDISC ---
Date of service: 07/13/24 Time of Service: 12:37 Discharge Plan Disposition Patient Disposition: Home Discharge Details Reason For Visit: gallbladder removal Attending Provider: Roma Patricia Primary Care Provider: Kita Calrk Home Meds and New Rx's Prescriptions: New ondansetron 4 mg tablet,disintegrating 4 mg PO Q8H PRN4 Days Qty: 7 0RF tramadol 50 mg tablet 50 mg PO Q4H PRN (Reason: pain (scale score 7-10)) Qty: 14 0RF Continued mecobalamin (vitamin B12) 1,000 mcg tablet,chewable 1,000 mcg PO DAILY cholecalciferol (vitamin D3) 25 mcg (1,000 unit) capsule 25 mcg PO DAILY pantoprazole [Protonix] 40 mg tablet,delayed release (DR/EC) 40 mg PO DAILY Qty: 30 6RF No Action spironolactone 25 mg tablet 25 mg PO QAM Patient Comments: TAKE ONE TABLET BY MOUTH EVERY DAY phentermine 15 mg capsule 15 mg PO DAILY Patient Comments: TAKE ONE CAPSULE BY MOUTH EVERY DAY Rx Instructions: HAS NOT STARTED BECAUSE OF SURGERY Discharge Instructions Additional Instructions: Care after Gallbladder Surgery -Pain control: ?For the first 72 hours after surgery, take you pain meds continuously and not just when you have pain.?? Alternate Tylenol 1000mg by mouth every 8 hours, and Ibuprofen 600mg every 6 hours.? Make sure you take ibuprofen with food and not on an empty stomach.? ??Use the tramadol for breakthrough pain- pain that is greater than a 7. ?- Use ICE! Ice really helps to keep the swelling down, and swelling causes pain. ??Twenty minutes on, and then off, continuously for the first 72hours.? After the first 72hrs, you can just use the Tylenol, ibuprofen, and ice, when you have pain.?? If you are taking narcotic pain medication, follow the instructions on the label and do not drive. Pain medications can make you very constipated. Make sure you are moving your bowels daily. If not, take Miralax, - Anesthesia makes you very constipated.? Take a dose of milk of magnesia the morning after surgery. ? Use an ice bag for the first 72 hours. This helps to decrease swelling, which causes pain. It is normal to be more sore/painful and swollen towards the end of the day and first thing in the morning. ? Gallbladder surgery can make you very nauseated; use Zofran for nausea, for the first 24 hours. The nausea generally stops after 24 hours. ? Use Miralax ?to prevent constipation (this is a particular side effect of pain medication and anesthesia). Do not allow yourself to become constipated. ? Avoid fatty or greasy foods; introduce these slowly, with care, after about 1 month. High-fat foods include: ? Foods that are fried, like Bulgarian fries and potato chips ? High-fat meats, such as faustin, bologna, sausage, ground beef, and ribs, pork products ? High-fat dairy products, such as cheese, ice cream, cream, whole milk, and sour cream ? Pizza ? Foods made with lard or butter ? Creamy soups or sauces ? Meat gravies ? Chocolate ? Oils, such as palm and coconut oil ? Skin of chicken or turkey ? Nuts and nut butters ? Avocadoes ? Start out eating very small, bland amounts of food. Do not take pain pills on an empty stomach. - You will notice purple discoloration around the incisions.? This is the ?skin glue?.? This will wear off on its own.? It is OK to shower after 24hrs.? You do not need to cover the incisions. -You should walk frequently, gradually, increasing the distance. You may climb stairs, just go slowly. ? Do not go swimming or sit in a hot tub for two weeks. ? There are no stitches to remove. ? Do not drive your car x72hrs and then only if you have no pain and can move freely. Do not drive if you are taking pain narcotic pain medications. ? You may resume sexual activity whenever pain and soreness subside, usually in 2 weeks. ? Do no lift anything over 5 lbs. for two weeks. ? You may return to work in one week, or when you feel able, provided you do not have to do any heavy lifting or prolonged standing. ? You should return to Dr. Patricia?s office for a post-op appointment about two weeks after surgery. A follow-up should have been scheduled for you already.? If there is not, please call the Surgical [facility] at: [phone] to schedule an appointment. My Medications for pain and nausea are: Tylenol/ibuprofen ?and ultram- for severe pain ?and Zofran-nausea When to Call the Office: ? If the incision becomes red or swollen, or there is more than a little drainage from it. ? If you develop a temperature higher than 100.5 F. ? If your eyes turn yellow ? Vomiting and can?t keep fluids down Activity:: see above Remove Dressings/Wound Care:: 24 hours Shower/Bathe:: 24 hours Diet:: low fat Discharge Orders Discharge Orders: Discharge Order (Routine); Ordered 07/13/24 Ordered By: Roma Patricia DS: Diagnosis Discharge Diagnosis (1) Biliary dyskinesia: Status: Acute Asessment and Plan: The patient is doing well post-op from their lap praveena.? They are having no nausea or vomiting. They are tolerating liquids and a snack. The pt is not having any chest pain or SOB.? Their pain is adequately controlled. They have been able to urinate.? ?HEENT:? no eye pain/drainage/redness/swelling. Mild sore throat ?Cardio- NSR, no chest pain, BP stable- see VS record ?Pulm: no sob or productive cough. No hemoptysis ?Incision- dressing is c/d/i w/ no excessive bleeding or drainage ?I discussed with the patient the findings at the time of surgery and the patient?s progress. ?We reviewed expectations at home; what the patient could expect for recovery time, and in the post-operative period.? We discussed the importance of walking to avoid blood clots and pneumonia.? We discussed and reviewed the patient's post-operative wound care and dressing needs.?? We reviewed their step-connell pain management plan, Rx called to the pharmacy of their choice.? We reviewed activity and limitations-see discharge instructions. We reviewed warning signs, and when to seek medical attention- see d/c instructions.?? Patient was given a postoperative follow-up appointment. Patient verbalized understanding of their postoperative instructions, how do to take care of themselves and their incision, and the pain management plan. Please see discharge instructions.?
--- NOTE | 2024-07-12 10:40 | ROE_ITS ---
Date of service: 07/13/24 Time of Service: 12:29 Operative Note Operative Note DATE OF PROCEDURE: 07/13/24 PRE-OP DIAGNOSIS: Biliary dyskinesia POST-OP DIAGNOSIS: same (Adhesions at the umbilicus) PROCEDURE: The pt is seen at the request of there PCP regarding acute on chronic cholecystitis, cholelithiasis. The pt has failed outpt conservative medical measures and is here today for laparoscopic cholecystectomy. Informed consent was obtained, explaining risks and benefits of the procedure including but not limited to bleeding, infection, pneumonia, blood clots, possible damage to bowel, bladder, blood vessels, bile ducts, possible open procedure, complications of general anesthesia and other unforetold complications. PROCEDURE: The patient agrees and is brought to the operative room suite and placed in supine position. Pt receives IV ICG preOp to aid w/ bile duct visualization.? Anesthesia was administered per the Department of Anesthesia. The patient did receive IV antibiotics. NG tube and Root catheter are placed. The patient was prepped and draped in the usual sterile fashion using DuraPrep scrub solution. Pause for the cause was done. 20 mL of 1% buffered lidocaine was used for local anesthetization. A stab incision was made in the umbilicus and the Verres inserted. Drop test was positive and insufflation was begun. When 15 mm of pressure was noted on the monitor, the Veress was removed and 10 port inserted. The camera was inserted through the port and shows no damage to underlying structures. A 5 mm port was then placed in the epigastric position under direct visualization following creation of local field blocks as well as two 5 mm ports in the right upper quadrant. The camera was moved to one of the secondary ports so we could view the umbilical trocar site, and there are some adhesions down around the umbilicus. These are inhibiting our [id number]-vlbh. These are taken down with combination of blunt and sharp dissection. Electrocautery was used to provide hemostasis. No bleeding is noted. The gallbladder fundus was grasped and retracted towards the right shoulder. Infundibulum was grasped and retracted laterally. The hepat-duodenal ligament is entered. The cystic duct and artery are dissected out and the most inferior portion of the gallbladder plate is removed from the liver and the critical view of safety was obtained after clearing away all fatty material. Endo Clips were placed across the duct and artery and these structures are divided. The remainder of the gallbladder was excised from the liver bed. The gallbladder was placed in a bag and brought out. Examination of the gallbladder shows indeed the cystic duct and artery to have been divided. The remainder of the abdomen was copiously irrigated with a liter of saline. All saline is removed. There is no bleeding or bile leakage from the liver bed or the clips sites. An EndoClose needle was used to close the 10 mm port site with an 0 Vicryl. All ports and instruments are removed. SPonge and needle counts are correct. Pneumoperitoneum is evacuated and the port sites are monitored to make sure there is no bleeding at the time of desufflation. ??Port sites are irrigated and the skin is closed with 4-0 Monocryl in a running subcuticular fashion. Skin glue sterile dressings are applied. The patient tolerated the procedure well without complications, transferred to the recovery room in stable condition. ROMA CASTILLO DO SURGEON: Roma Castillo CLERICAL SPECIALIST: Flor Peace ANESTHESIA TYPE: Local By Surgeon and General LMA/ETT Refer to Anesthesia Record ESTIMATED BLOOD LOSS: 10 PATHOLOGY: other COMPLICATIONS: None Patient was transported to: PACU Patient's condition: stable Procedure Description: The pt is seen at the request of there PCP regarding acute on chronic cholecystitis, cholelithiasis. The pt has failed outpt conservative medical measures and is here today for laparoscopic cholecystectomy. Informed consent was obtained, explaining risks and benefits of the procedure including but not limited to bleeding, infection, pneumonia, blood clots, possible damage to bowel, bladder, blood vessels, bile ducts, possible open procedure, complications of general anesthesia and other unforetold complications. PROCEDURE: The patient agrees and is brought to the operative room suite and placed in supine position. Pt receives IV ICG preOp to aid w/ bile duct visualization.? Anesthesia was administered per the Department of Anesthesia. The patient did re ceive IV antibiotics. NG tube and Root catheter are placed. The patient was prepped and draped in the usual sterile fashion using DuraPrep scrub solution. Pause for the cause was done. 20 mL of 1% buffered lidocaine was used for local anesthetization. A stab incision was made in the umbilicus and the Verres inserted. Drop test was positive and insufflation was begun. When 15 mm of pressure was noted on the monitor, the Veress was removed and 10 port inserted. The camera was inserted through the port and shows no damage to underlying structures. A 5 mm port was then placed in the epigastric position under direct visualization following creation of local field blocks as well as two 5 mm ports in the right upper quadrant. The camera was moved to one of the secondary ports so we could view the umbilical trocar site, and there are some adhesions down around the umbilicus. These are inhibiting our [id number]-frey. These are taken down with combination of blunt and sharp dissection. Electrocautery was used to provide hemostasis. No bleeding is noted. The gallbladder fundus was grasped and retracted towards the right shoulder. Infundibulum was grasped and retracted laterally. The hepat-duodenal ligament is entered. The cystic duct and artery are dissected out and the most inferior portion of the gallbladder plate is removed from the liver and the critical view of safety was obtained after clearing away all fatty material. Endo Clips were placed across the duct and artery and these structures are divided. The remainder of the gallbladder was excised from the liver bed. The gallbladder was placed in a bag and brought out. Examination of the gallbladder shows indeed the cystic duct and artery to have been divided. The remainder of the abdomen was copiously irrigated with a liter of saline. All saline is removed. There is no bleeding or bile leakage from the liver bed or the clips sites. An EndoClose needle was used to close the 10 mm port site with an 0 Vicryl. All ports and instruments are removed. SPonge and needle counts are correct. Pneumoperitoneum is evacuated and the port sites are monitored to make sure there is no bleeding at the time of desufflation. ??Port sites are irrigated and the skin is closed with 4-0 Monocryl in a running subcuticular fashion. Skin glue sterile dressings are applied. The patient tolerated the procedure well without complications, transferred to the recovery room in stable condition.
[2024-07-13] VITALS (20 sets, daily range): BP systolic 106–130; BP diastolic 73–94; PULSE 50–89; RESP 13–21; TEMP 36.2–36.6; O2SAT 94–100; BMI 33.0
--- NOTE | 2024-07-13 10:22 | W.ANESPRE ---
General Info Date of Service Date Performed: 07/13/24 Height: 5 ft 1.5 in Weight: 80.7 kg Body Mass Index (BMI): 33.0 Surgical Procedure: Operation Date: 07/13/24 11:25 Proposed Procedure Side Surgeon p Cholecystectomy Laparoscopic, possible open Roma Patricia, DO Meds Allergies and Home Medications Allergies Allergy/AdvReac Type Severity Reaction Status Date / Time amoxicillin (Amoxicillin) Allergy Severe facial Verified 07/13/24 09:54 swelling cefuroxime (From Ceftin) Allergy Unknown Skin Rash Verified 07/13/24 09:54 hydrocodone bitartrate (From AdvReac Severe Nausea, Verified 07/13/24 09:54 Vicodin) vomiting Home Medication ?Medication ?Instructions ?Recorded cholecalciferol (vitamin D3) 25 25 mcg PO DAILY 05/24/24 mcg (1,000 unit) capsule mecobalamin (vitamin B12) 1,000 1,000 mcg PO DAILY 05/24/24 mcg chewable tablet pantoprazole 40 mg tablet,delayed 40 mg PO DAILY #30 tabs 05/24/24 release (Protonix) ondansetron 4 mg disintegrating 4 mg PO Q8H PRN 4 days #7 tabs 07/12/24 tablet phentermine 15 mg capsule 15 mg PO DAILY 07/12/24 spironolactone 25 mg tablet 25 mg PO QAM 07/12/24 tramadol 50 mg tablet 50 mg PO Q4H PRN pain (scale score 07/12/24 7-10) #14 tabs Current Visit Medications: Current Medications Generic Name Dose Route Start Last Admin Trade Name Freq PRN Reason Stop Dose Admin Acetaminophen 1,000 mg 07/13/24 06:00 Acetaminophen 500 Mg Tab PO 07/13/24 18:00 PREOP ANTWON Gabapentin 600 mg 07/13/24 06:00 Gabapentin 300 Mg Cap PO 07/13/24 18:00 PREOP ANTWON Ondansetron HCl 4 mg/ Sodium 52 mls @ 200 mls/hr 07/13/24 10:35 Chloride IVPB 08/12/24 10:34 Q6H PRN PRN Ringer's Solution 1,000 mls @ 80 mls/hr 07/13/24 06:00 IV 08/11/24 23:59 INFUSION ANTWON Metronidazole 500 mg in 100 mls @ 100 mls/hr 07/13/24 06:00 Flagyl IVPB 07/13/24 16:00 PREOP ANTWON Clindamycin Phosphate/Dextrose 600 mg in 50 mls @ 100 mls/hr 07/13/24 06:00 Cleocin In D5w IVPB 07/13/24 16:00 PREOP [facility] IV Miscellaneous Supplies 1 each 07/13/24 06:00 Iv Access IV 08/11/24 23:59 DIRECTED ANTWON Indocyanine Green 5 mg 07/13/24 06:00 Indocyanine Green 25 Mg Vial IVP 07/13/24 18:00 PREOP ANTWON Morphine Sulfate 2 mg 07/13/24 10:35 Morphine 4 Mg/Ml Syr IVP 08/12/24 10:34 Q1H PRN PRN Sodium Chloride 0 ml 07/13/24 06:00 Normal Saline Flush 10 Ml Syr IV 08/11/24 23:59 PRN PRN Sodium Chloride 0 ml 07/13/24 06:00 Normal Saline 10 Ml Vial IJ 08/11/24 23:59 DIRECTED PRN Sterile Water 0 ml 07/13/24 06:00 Water,Injection,Sterile 10 Ml Vial IJ 08/11/24 23:59 DIRECTED PRN Tramadol HCl 50 mg 07/13/24 10:35 Tramadol 50 Mg Tab PO 08/12/24 10:34 Q6H PRN PRN Pain PFSH Active Problems Active Problems: Problem Status Onset Code Biliary dyskinesia Acute K82.8 Nausea Acute R11.0 Epigastric pain Acute R10.13 Pelvic pain Acute R10.2 Frontal headache Acute R51.9 Tailor's bunionette, right Acute M21.621 Lesion of left femur Acute M89.9 Pain of left knee after injury Acute M25.562, T14.90XA Patellar tendinitis of left knee Acute M76.52 Patellar tendon strain Acute S86.819A Right rotator cuff tendinitis Acute 12/09/16 M75.81 Arthralgia of right acromioclavicular joint Acute 02/26/17 M25.511 Sacroiliac joint dysfunction of right side Chronic M53.3 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 M47.816 UTI (urinary tract infection) Acute N39.0 Medical History Medical History (Updated 07/12/24 @ 14:16 by Neftaly Moise) Normal colposcopy Tailors bunion History of cervical dysplasia Obesity Migraine Right sided sciatica Low back pain Condyloma acuminata Insomnia Facial paresthesia Altered bowel function Hyperglycemia Recurrent major depression Daily nausea Pain in left arm Generalized anxiety disorder with panic attacks Indigestion Atypical chest pain Gallbladder/indigestion related Essential hypertension Surgical History Surgical History History of tonsillectomy and adenoidectomy Ligation of fallopian tube Tobacco Smoking/Tobacco Use Status: Current every day Tobacco Type: e-cigarettes Alcohol Alcohol Intake: former Substance Use Substance use: Never Substance use type: does not use Prental History History 4 Para 4 Hx # Term Pregnancies Multiple births Hx # Pregnancies Ectopic pregnancies AB induced Hx Number of Living Children AB spontaneous Past Pregnancies Del. Date GA/Weeks # Preg Succ Route Wgt Sex Labor Lgth Anesthesia Location Prov Complic 08/01/04 40 No vaginal Female [facility] 05/01/07 40 No vaginal Female [facility] 08/16/09 40 No vaginal Male [facility] 06/07/12 40 No vaginal Female [facility] Vital Signs and Lab Results Vital Signs Most Recent Vital Signs in EMR: Most Recent Vital Signs Temp Pulse Resp BP Pulse Ox 36.4 C L 89 20 129/94 H 94 07/13/24 09:56 07/13/24 09:56 07/13/24 09:56 07/13/24 09:56 07/13/24 09:56 Point of Care Results Point of Care Results: POC- Test(urine) Negative 07/13/24 10:00 Lab Results Blood Type / Crossmatch: No Data to Display Complete Blood Count: No Data to Display Complete Metabolic Panel: No Data to Display Liver Function Panel: No Data to Display Coagulation Panel: No Data to Display Cardiac Panel: No Data to Display Arterial Blood Gas: No Data to Display Venous Blood Gas: No Data to Display Pancreas Panel: No Data to Display Thyroid Panel: No Data to Display Infectious Disease: No Data to Display Blood Cultures: No Data to Display Toxicology Panel: No Data to Display Panel: No Data to Display Imaging and Studies Imaging and Studies Study information below may be from another EMR and interpreted by another provider. Please see original notes in EMR for more complete details. EKG Summary: 04/16/24: Conclusion Sinus rhythm...normal P axis, V-rate 60- 99 Stress Test Summary: 03/01/24: Stress ECG Conclusion 1. Resting EKG was normal 2. Patient exercised on the Sreekanth protocol and completed a workload of 8.62 METS 3. Normal heart rate and response to exercise. The patient achieved 85% of predicted heart rate for age 4. There was no electrocardiographic evidence of myocardial ischemia 5. There were no dysrhythmias Brody Treadmill Score is 6.7 which is Low risk. Echocardiogram Summary: 02/05/24: Conclusion Normal left ventricular wall thickness and chamber size. EF is 60-65%. Wall motion is normal Normal diastolic function Normal right ventricular size and function Both atria are normal in size. There is no structural or hemodynamically significant valvular disease Estimated right ventricular systolic pressure is 16 mmHg Dilated ascending aorta 3.87 cm Anesthesia Assessment and Plan Anesthesia History Personal History: No History of Anesthesia Complications Family History: No Family History of Anesthesia Complications Exercise Tolerance Exercise Tolerance: Metabolic Equivalents>4 Pertinent Negatives Pertinent Negatives: No Major Cardiovascular Symptoms or Complaints and No Major Pulmonary Symptoms or Complaints Cardiac & Pulmonary Exam Cardiac Exam: Normal S1/S2 Heart Sounds Pulmonary Exam: Clear Bilateral Breath Sounds Implantable Cardiac Device Does patient have a Pacemaker or an ICD?: No Airway Exam Known Difficult Airway: No Mallampati Class: 2 Mouth Opening: Normal (> 3cm) Thyromental Distance: Greater than 3 cm Neck Range of Motion: Full ROM Neck Circumference: Normal Teeth Condition: Normal Dentition and Removable Dentures/Plates Upper (flipper, patient wishes to have it remain in place) ASA Classification ASA Score: ASA 2 Emergency Case?: No NPO Status NPO Status: NPO Clears >2 hours, Solids >8 hours Status Status: Negative HCG Anesthesia Plan Resuscitation Status: Full Code Anesthesia Technique: General Anesthesia Airway Planned: Endotracheal Tube Monitors Used: Standard Monitors and SedLine
[2024-07-13] MEDS: Lactated Ringers 1,000 ML 80 ML IV (10:39)
[2024-07-13] MEDS: metroNIDAZOLE 500 MG/100 ML BAG 100 MG IVPB (10:48)
[2024-07-13] MEDS: Indocyanine green 25 MG VIAL 5 MG IVP (10:52)
[2024-07-13] MEDS: CLINDAMYCIN 600 MG/50 ML BAG 100 MG IVPB (11:22)
--- NOTE | 2024-07-13 12:04 | GB_PTH ---
PATIENT: Arron Chester LOC: [facility] U#:[id number] AGE/SX: 39/F ROOM: RE07/13/[address]: Roma Patricia : 1985 BED: DIS: 07/13/2024 SPEC #: [id number] RECD: 07/13/24 13:16 STATUS: KEVIN REQ #: [id number] DANTE: 07/13/24 12:[address]: Roma Patricia DEPT: Surgical Specimen RECD BY: Fariha Valdivia ENTERED: 07/13/24 13:16 SP TYPE: GB OTHR DR: Kita Clark Tissues: 1 - GALLBLADDER Procedures: GROSS AND MICRO LEVEL 3 Comments: [id number]
[2024-07-13] MEDS: Bupivacaine 0.25% Pres-Free W/EPI 30 ML VIAL (12:18)
[2024-07-13] MEDS: fentaNYL 100 MCG/2 ML VIAL IVP ×2 (12:43→13:00)
[2024-07-13] MEDS: Methocarbamol 500 MG TAB 1000 MG PO (13:54)
[2024-07-13] MEDS: Ondansetron 4 MG/2 ML VIAL IVP (15:02)
--- NOTE | 2024-07-13 15:15 | W.ANESPOSTOP ---
Postoperative Evaluation Date, Time and Location Date Performed: 07/13/24 Time Performed: 15:15 Patient Location: Day Surgery Unit Vital Signs Most Recent Imported Vital Signs: Most Recent Vital Signs Temp Pulse Resp BP Pulse Ox 36.2 C L 64 18 121/88 100 07/13/24 13:55 07/13/24 13:55 07/13/24 13:55 07/13/24 13:55 07/13/24 13:55 Pain Score Most Recent Pain Score: Most Recent Pain Score Pain Level 9 07/13/24 13:55 Assessment Mental Status: Awake (Alert & Oriented to Patient Baseline) Airway and Respiratory Function: Patent airway with normal (patient baseline) respiratory exam Cardiovascular Function: Hemodynamically Stable Hydration Status: Adequately Hydrated Nausea & Vomiting: No Nausea or Vomiting Pain: Pain is Moderate or Severe Postoperative Pain Management: Pain being addressed with medication Peripheral Nerve Block: Patient did not receive a nerve block
== END 2024-07-13 15:18 | disposition home or self-care (01) ==
LOC: SUR 09:39
PROVIDERS: PCP Family Medicine; Visit Provider Surgery
PROC: 0FT44ZZ Resection of Gallbladder, Percutaneous Endoscopic Approach (ICD-10-PCS; CPT 47562; principal; 2024-07-13 11:15)
DX: K82.8 Other specified diseases of gallbladder (principal)
CPT/HCPCS: 47562; 81025; 88304; J0737; J1100; J1836; J1885; J2001; J2250; J2405; J2704; J3010

== ENCOUNTER 2024-07-20 09:45 | Outpatient (CLI) | payer MEDICAID, SELFPAY ==
[2024-07-20 10:41] LABS: Abs Immature Grans 0.02 10^3/uL (0.0-0.06); Absolute Basophil Count 0.04 10^3/uL (0.0-0.2); Absolute Eosinophil Count 0.12 10^3/uL (0.0-0.7); Absolute Monocyte Count 0.32 10^3/uL (0.1-0.8); Absolute Neutrophil Count 4.38 10^3/uL (1.2-6.7); Basophils % 0.6 %; Eosinophils % 1.9 %; HCT 38.8 % (36.0-46.0); HGB 12.5 g/dL (11.2-15.7); Immature Grans % 0.3 %; MCH 29.6 pg (27.0-33.0); MCHC 32.2 % (32.0-36.0); MCV 92 fL (80-95); MPV 8.8 fL (8.0-11.0); Monocytes % 5.2 %; Platelet Count 290 10^3/uL (130-400); RBC 4.22 10^6/uL (3.93-5.22); RDW 12.7 % (11.7-14.6); RDW-SD 42.5 fL; WBC 6.18 10^3/uL (4.4-10.8)
[2024-07-20 10:55] LABS: ALT 291 U/L (14-59); AST 164 U/L (15-37); Albumin 3.6 g/dL (3.4-5.0); Alkaline Phosphatase 191 U/L (46-116); Anion Gap 9.7 mmol/L (3-11); BUN 12 mg/dL (7-18); Bilirubin, Total 0.37 mg/dL (0.2-1.0); CO2 26.3 mmol/L (21.0-32.0); CREATININE 0.6 mg/dL (0.55-1.02); Calcium 8.7 mg/dL (8.5-10.1); Chloride 105 mmol/L (98-107); Estimated GFR 118.49 (mL/min/1.73m2); Glucose 99 mg/dL (74-106); Potassium 4.1 mmol/L (3.5-5.1); Sodium 141 mmol/L (136-145); Total Protein 7.3 g/dL (6.4-8.2)
== END 2024-07-20 09:46 | disposition home or self-care (01) ==
LOC: LBO 09:45
PROVIDERS: PCP Family Medicine; Visit Provider Surgery
DX: K82.8 Other specified diseases of gallbladder (principal); R10.13 Epigastric pain; Z90.49 Acquired absence of other specified parts of digestive tract
CPT/HCPCS: 36415; 80053; 85025

== ENCOUNTER 2024-07-30 13:20 | Outpatient (CLI) | payer MEDICAID, SELFPAY ==
[2024-07-30 13:03] LABS: ALT 64 U/L (14-59); AST 12 U/L (15-37); Albumin 3.7 g/dL (3.4-5.0); Alkaline Phosphatase 104 U/L (46-116); Bilirubin, Direct 0.1 mg/dL (0.0-0.2); Bilirubin, Total 0.39 mg/dL (0.2-1.0); Total Protein 7.5 g/dL (6.4-8.2)
== END 2024-07-30 13:21 | disposition home or self-care (01) ==
LOC: LBO 13:20
PROVIDERS: PCP Family Medicine; Visit Provider Surgery
DX: R10.13 Epigastric pain (principal)
CPT/HCPCS: 36415; 80076

== ENCOUNTER 2024-10-10 08:19 | Emergency (ER) | payer MEDICAID, SELFPAY ==
[2024-10-10 08:26] VITALS: BP 129/98; PULSE 92; RESP 16; TEMP 36.8; O2SAT 100
[2024-10-10 08:28] VITALS: PULSE 91; RESP 16; TEMP 37; O2SAT 100
[2024-10-10 08:50] LABS: Bilirubin Negative (Negative); Blood Moderate (Negative); Clarity Sl Cloudy (Clear); Glucose Negative (Negative); Ketones Negative (Negative); Leukocyte Esterase Moderate (Negative); Nitrite Positive (Negative); Specific Gravity 1.025 (1.005-1.025); Urobilinogen 0.2 mg/dL (Up to 0.2); pH 5.5 (5-8)
[2024-10-10 08:57] LABS: Bacteria Many HPF (Negative); C & S Indicated? Yes; Crystals Negative HPF (Negative); Epithelial Cells Few HPF (Negative); Mucus Moderate (Negative); WBC >50 HPF (0-5)
--- NOTE | 2024-10-10 09:13 | ED.GENADUL_ITS ---
Discharge Plan Disposition Patient Disposition: Home Condition: Stable Discharge Details Clinical Impression: UTI (urinary tract infection) Primary Care Provider: Kita Clark ED Provider: Fariha Castaneda Home Meds and New Rx's Prescriptions: New nitrofurantoin monohyd/m-cryst [Macrobid] 100 mg capsule 100 mg PO BID 7 Days Qty: 14 0RF Rx Instructions: must administer with a meal/food phenazopyridine [Pyridium] 200 mg tablet 200 mg PO TID PRNQty: 5 0RF Continued mecobalamin (vitamin B12) 1,000 mcg tablet,chewable 1,000 mcg PO DAILY cholecalciferol (vitamin D3) 25 mcg (1,000 unit) capsule 25 mcg PO DAILY pantoprazole [Protonix] 40 mg tablet,delayed release (DR/EC) 40 mg PO DAILY Qty: 30 6RF spironolactone 25 mg tablet 25 mg PO QAM Patient Comments: TAKE ONE TABLET BY MOUTH EVERY DAY Discharge Instructions Instructions: Urinary Tract Infection, Adult ED Additional Instructions: You have a urinary tract infection, urine culture is pending we will call you if we need to change her antibiotic based on the bacteria that is grown on the culture Take the Pyridium, you may take 1 capsule every 8 hours as needed for discomfort, be aware that this will cause your urine to be orange and any secretions such as stairs or if you blow your nose, you will have yellow discoloration, do not be alarmed this will resolve when you discontinue the medication Please return immediately should you develop fever, chills, back pain, or should you have any new or worsening complaints Referrals: Kita Clark MD [Primary Care Provider] - 2 days Discharge Data Discharge Date/Time-TO BE ENTERED AT DEPARTURE: 10/10/24 09:26 HPI General Date/Time Provider Initiated Documentation: 10/10/24 08:22 . HPI Narrative: This 39-year-old female presents with urinary symptoms, dysuria and frequency which started 3 days prior to arrival. Denies any fever or chills or flank pain. Sexually active and monogamous with her . Denies risk of sexually transmitted disease. Denies any chance of . Denies hematuria or history of renal stones. Related Data Home Medications ?Medication ?Instructions ?Recorded ?Confirmed cholecalciferol (vitamin D3) 25 25 mcg PO DAILY 05/24/24 10/10/24 mcg (1,000 unit) capsule mecobalamin (vitamin B12) 1,000 1,000 mcg PO DAILY 05/24/24 10/10/24 mcg chewable tablet pantoprazole 40 mg tablet,delayed 40 mg PO DAILY #30 tabs 05/24/24 10/10/24 release (Protonix) spironolactone 25 mg tablet 25 mg PO QAM 07/12/24 10/10/24 nitrofurantoin 100 mg PO BID 7 days #14 caps 10/10/24 monohydrate/macrocrystals 100 mg capsule (Macrobid) phenazopyridine 200 mg tablet 200 mg PO TID PRN 6 doses #5 tabs 10/10/24 (Pyridium) Previous Rx's ?Medication ?Instructions ?Recorded pantoprazole 40 mg tablet,delayed 40 mg PO DAILY #30 tabs 05/24/24 release (Protonix) nitrofurantoin 100 mg PO BID 7 days #14 caps 10/10/24 monohydrate/macrocrystals 100 mg capsule (Macrobid) phenazopyridine 200 mg tablet 200 mg PO TID PRN 6 doses #5 tabs 10/10/24 (Pyridium) Allergies Allergy/AdvReac Type Severity Reaction Status Date / Time amoxicillin (Amoxicillin) Allergy Severe facial Verified 10/10/24 08:21 swelling cefuroxime (From Ceftin) Allergy Unknown Skin Rash Verified 10/10/24 08:21 hydrocodone bitartrate (From AdvReac Severe Nausea, Verified 10/10/24 08:21 Vicodin) vomiting General Stated Complaint: Urinary WADE: 4 Exam Narrative Exam Narrative: Alert and oriented 39-year-old female no acute distress, mild suprapubic tenderness no CVA tenderness Course Vital Signs Vital signs: Vital Signs Temperature 36.8 C 10/10/24 08:26 Pulse 92 H 10/10/24 08:26 Respiratory Rate 16 10/10/24 08:26 Blood Pressure 129/98 H 10/10/24 08:26 Pulse Oximetry 100 10/10/24 08:26 Temperature 37.0 C 10/10/24 08:28 Temperature Source Oral 10/10/24 08:28 Pulse 91 H 10/10/24 08:28 Respiratory Rate 16 10/10/24 08:28 Respiratory Effort Normal, Non-Labored 10/10/24 08:28 Blood Pressure 129/98 H 10/10/24 08:26 Blood Pressure Position Sitting 10/10/24 08:26 Pulse Oximetry 100 10/10/24 08:28 Oxygen Delivery Method Room Air 10/10/24 08:28 Oxygen Flow Rate 0 10/10/24 08:26 Pain Level 8 10/10/24 08:28 Lab/Test Results Lab/Test Results: 10/10/24 08:26 Urine - Reflex from Ua Urine Culture - Pending Laboratory Tests Range/Units 10/10/24 08:26 Urine Color (Yellow) Yellow Urine Clarity (Clear) Sl Cloudy Urine pH (5-8) 5.5 Ur Specific [place] (1.005-1.025) 1.025 Urine Protein (Neg-Trace) mg/dL >=300 H Urine Ketones (Negative) mg/dL Negative Urine Blood (Negative) Moderate H Urine Nitrite (Negative) Positive H Urine Bilirubin (Negative) Negative Urine Urobilinogen (Up to 0.2) mg/dL 0.2 Ur Leukocyte Esterase (Negative) Moderate H Urine RBC (0-2) HPF 10-20 H Urine WBC (0-5) HPF >50 H Ur Epithelial Cells (Negative) HPF Few Urine Crystals (Negative) HPF Negative Urine Bacteria (Negative) HPF Many Urine Casts (Negative) LPF 5-10 WBC Urine Mucus (Negative) Moderate Ur Culture Indicated? Yes Urine Glucose (Negative) mg/dL Negative POC- Test(urine) Negative Medical Decision Making 39-year-old female in no acute distress presenting with dysuria and frequency. Urinalysis concerning for infection, suspect cystitis. Given patient allergies will initiate Macrobid and Pyridium. Will send urine for culture and call if any change in antibiotics is necessary no evidence of pyelonephritis clinically. Return precautions reviewed and patient expressed understanding Quality:SDOH Health Related Social Needs: No Data to Display PFSH All Active Problems (Updated 10/10/24 @ 09:10 by FLAVIA Keith) Biliary dyskinesia (Acute) Nausea (Acute) Epigastric pain (Acute) Pelvic pain (Acute) Frontal headache (Acute) Tailor's bunionette, right (Acute) Lesion of left femur (Acute) Pain of left knee after injury (Acute) Patellar tendinitis of left knee (Acute) Patellar tendon strain (Acute) Right rotator cuff tendinitis (Acute 12/09/16) Arthralgia of right acromioclavicular joint (Acute 02/26/17) Sacroiliac joint dysfunction of right side (Chronic) Spondylosis of lumbar region without myelopathy or radiculopathy (Chronic) UTI (urinary tract infection) (Acute) Medical History Normal colposcopy Tailors bunion History of cervical dysplasia Obesity Migraine Right sided sciatica Low back pain Condyloma acuminata Insomnia Facial paresthesia Altered bowel function Hyperglycemia Recurrent major depression Daily nausea Pain in left arm Generalized anxiety disorder with panic attacks Indigestion Atypical chest pain Gallbladder/indigestion related Essential hypertension Surgical History Hx of cholecystectomy (~06/2024) History of tonsillectomy and adenoidectomy Ligation of fallopian tube Family History Mother Family history of anxiety disorder Maternal Grandfather Heart disease Social History Smoking/Tobacco Use Status: Current every day Tobacco Type: e-cigarettes Smoking risk assessment performed?: Yes Alcohol Intake: former Drug use: Never Substance use type: does not use Housing: house Do you feel safe at home: Yes Do you feel safe in your relationship?: Yes Female Reproductive History Menstrual control method: permanent sterilization History History 4 Para 4 Hx # Term Pregnancies Multiple births Hx # Pregnancies Ectopic pregnancies AB induced Hx Number of Living Children AB spontaneous Past Pregnancies Del. Date GA/Weeks # Preg Succ Route Wgt Sex Labor Lgth Anesth esia Location Prov Complic 08/01/04 40 No vaginal Female [facility] 05/01/07 40 No vaginal Female [facility] 08/16/09 40 No vaginal Male [facility] 06/07/12 40 No vaginal Female [facility]
[2024-10-10] MEDS: Phenazopyridine 200 MG TAB PO (09:18)
[2024-10-10] MEDS: MacroBID 100 MG CAP, 2 CAPS/BTL PO (09:18)
[2024-10-10 09:25] VITALS: BP 131/98; PULSE 83; RESP 14; O2SAT 100
== END 2024-10-10 09:26 | disposition home or self-care (01) ==
PROVIDERS: Emergency Provider Physician Assistant; PCP Family Medicine
DX: R30.0 Dysuria (principal); R10.30 Lower abdominal pain, unspecified; R35.0 Frequency of micturition; F17.290 Nicotine dependence, other tobacco product, uncomplicated; N39.0 Urinary tract infection, site not specified
CPT/HCPCS: 81025; 87077; 99283; 81003; 81015; 87086; 87186

== ENCOUNTER 2025-07-22 18:47 | Outpatient (REF) | payer MEDICAID, SELFPAY ==
[2025-07-22 21:22] LABS: ESR < 1 mm/hr (0-20)
[2025-07-22 21:43] LABS: Hemoglobin A1C 4.8 % (<5.7)
[2025-07-22 22:22] LABS: Creatine Kinase 56 U/L (26-192)
[2025-07-22 22:25] LABS: C-Reactive Protein < 0.50 mg/dL (<or=0.5)
[2025-07-23 05:30] LABS: TSH (W/Ref FT4) 1.21 uIU/mL (0.36-3.74)
== END 2025-07-22 18:48 | disposition home or self-care (01) ==
LOC: NCHCN 18:47
PROVIDERS: PCP Family Medicine; Visit Provider Family Medicine
DX: Z13.1 Encounter for screening for diabetes mellitus (principal); R63.5 Abnormal weight gain
CPT/HCPCS: 82550; 85652; 86200; 83036; 84443; 86038; 86140; 86431

== ENCOUNTER 2025-10-19 11:17 | Day surgery (SDC) | payer MEDICAID, SELFPAY ==
[2025-10-19 11:25] VITALS: BP 120/87; PULSE 74; RESP 16; TEMP 36.4; O2SAT 100
--- NOTE | 2025-10-19 11:51 | W.ANESPRE ---
General Info Date of Service Date Performed: 10/19/25 Height: 5 ft 1 in Weight: 89.8 kg Body Mass Index (BMI): 37.4 Surgical Procedure: Operation Date: 10/19/25 12:50 Proposed Procedure Side Surgeon p Gastroscopy Miroslava Bell MD Meds Allergies and Home Medications Allergies Allergy/AdvReac Type Severity Reaction Status Date / Time amoxicillin (Amoxicillin) Allergy Severe facial Verified 10/19/25 11:32 swelling cefuroxime (From Ceftin) Allergy Unknown Skin Rash Verified 10/19/25 11:32 hydrocodone bitartrate (From AdvReac Severe Nausea, Verified 10/19/25 11:32 Vicodin) vomiting Home Medication ?Medication ?Instructions ?Recorded cholecalciferol (vitamin D3) 25 25 mcg PO DAILY 05/24/24 mcg (1,000 unit) capsule Held on 10/17/25. Instructions: Pt Stopped/Never Started mecobalamin (vitamin B12) 1,000 1,000 mcg PO DAILY 05/24/24 mcg chewable tablet Held on 10/17/25. Instructions: Pt Stopped/Never Started pantoprazole 40 mg tablet,delayed 40 mg PO DAILY #30 tabs 05/24/24 release (Protonix) phenazopyridine 200 mg tablet 200 mg PO TID PRN 6 doses #5 tabs 10/10/24 (Pyridium) Held on 10/17/25. Instructions: Pt Stopped/Never Started eletriptan 40 mg tablet See Rx Instructions PO .COMPLEX 08/02/25 phentermine 15 mg capsule 15 mg PO DAILY 08/02/25 Held on 10/17/25. Instructions: Pt Stopped/Never Started spironolactone 25 mg tablet 50 mg PO QAM 08/02/25 Current Visit Medications: Current Medications Generic Name Dose Route Start Last Admin Trade Name Freq PRN Reason Stop Dose Admin Ringer's Solution 1,000 mls @ 80 mls/hr 10/19/25 06:00 IV 10/19/25 23:59 INFUSION ANTWON Sodium Chloride 0 ml 10/19/25 06:00 Normal Saline Flush 10 Ml Syr IV 10/19/25 23:59 PRN PRN Sodium Chloride 0 ml 10/19/25 06:00 Normal Saline 10 Ml Vial IJ 10/19/25 23:59 DIRECTED PRN Sterile Water 0 ml 12/24/25 06:00 Water,Injection,Sterile 10 Ml Vial IJ 10/19/25 23:59 DIRECTED PRN PFSH Active Problems Active Problems: Problem Status Onset Code Dysphagia Acute R13.10 Paresthesia Acute R20.2 Biliary dyskinesia Acute K82.8 Nausea Acute R11.0 Epigastric pain Acute R10.13 Pelvic pain Acute R10.2 Frontal headache Acute R51.9 Tailor's bunionette, right Acute M21.621 Lesion of left femur Acute M89.9 Pain of left knee after injury Acute M25.562, T14.90XA Patellar tendinitis of left knee Acute M76.52 Patellar tendon strain Acute S86.819A Right rotator cuff tendinitis Acute 12/09/16 M75.81 Arthralgia of right acromioclavicular joint Acute 02/26/17 M25.511 Sacroiliac joint dysfunction of right side Chronic M53.3 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 M47.816 UTI (urinary tract infection) Acute N39.0 Medical History Medical History Former smoker Normal colposcopy Tailors bunion History of cervical dysplasia Obesity Migraine Right sided sciatica Low back pain Condyloma acuminata Insomnia Facial paresthesia Altered bowel function Hyperglycemia Recurrent major depression Daily nausea Pain in left arm Generalized anxiety disorder with panic attacks Indigestion Atypical chest pain Gallbladder/indigestion related Essential hypertension Surgical History Surgical History Hx of cholecystectomy (~06/2024) History of tonsillectomy and adenoidectomy Ligation of fallopian tube Tobacco Smoking/Tobacco Use Status: Current every day Tobacco Type: e-cigarettes Alcohol Alcohol Intake: former Substance Use Substance use: Never Substance use type: does not use Prental History History 4 Para 4 Hx # Term Pregnancies Multiple births Hx # Pregnancies Ectopic pregnancies AB induced Hx Number of Living Children AB spontaneous Past Pregnancies Del. Date GA/Weeks # Preg Succ Route Wgt Sex Labor Lgth Anesthesia Location Prov Complic 08/01/04 40 No vaginal Female [facility] 05/01/07 40 No vaginal Female [facility] 08/16/09 40 No vaginal Male [facility] 06/07/12 40 No vaginal Female [facility] Vital Signs and Lab Results Vital Signs Most Recent Vital Signs in EMR: Most Recent Vital Signs Temp Pulse Resp BP Pulse Ox 36.4 C L 74 16 120/87 100 10/19/25 11:25 10/19/25 11:25 10/19/25 11:25 10/19/25 11:25 10/19/25 11:25 Point of Care Results Point of Care Results: POC- Test(urine) Negative 10/19/25 11:45 Imaging and Studies Imaging and Studies Study information below may be from another EMR and interpreted by another provider. Please see original notes in EMR for more complete details. EKG Summary: 04/16/24: Conclusion Sinus rhythm...normal P axis, V-rate 60- 99 Stress Test Summary: 03/01/24: Stress ECG Conclusion 1. Resting EKG was normal 2. Patient exercised on the Sreeaknth protocol and completed a workload of 8.62 METS 3. Normal heart rate and response to exercise. The patient achieved 85% of predicted heart rate for age 4. There was no electrocardiographic evidence of myocardial ischemia 5. There were no dysrhythmias Brody Treadmill Score is 6.7 which is Low risk. Echocardiogram Summary: 02/05/24: Conclusion Normal left ventricular wall thickness and chamber size. EF is 60-65%. Wall motion is normal Normal diastolic function Normal right ventricular size and function Both atria are normal in size. There is no structural or hemodynamically significant valvular disease Estimated right ventricular systolic pressure is 16 mmHg Dilated ascending aorta 3.87 cm Anesthesia Assessment and Plan Anesthesia History Personal History: No History of Anesthesia Complications Family History: No Family History of Anesthesia Complications Exercise Tolerance Exercise Tolerance: Metabolic Equivalents>4 Pertinent Negatives Pertinent Negatives: No Major Cardiovascular Symptoms or Complaints and No Major Pulmonary Symptoms or Complaints Cardiac & Pulmonary Exam Cardiac Exam: Normal S1/S2 Heart Sounds Pulmonary Exam: Clear Bilateral Breath Sounds Implantable Cardiac Device Does patient have a Pacemaker or an ICD?: No Airway Exam Known Difficult Airway: No Mallampati Class: 2 Mouth Opening: Normal (> 3cm) Thyromental Distance: Greater than 3 cm Neck Range of Motion: Full ROM Neck Circumference: Normal Teeth Condition: Normal Dentition and Removable Dentures/Plates Upper (flipper, patient wishes to have it remain in place) ASA Classification ASA Score: ASA 2 Emergency Case?: No NPO Status NPO Status: NPO Clears >2 hours, Solids >8 hours Status Status: Negative HCG Anesthesia Plan Resuscitation Status: Full Code Anesthesia Technique: General Anesthesia Airway Planned: Natural Airway Monitors Used: Standard Monitors
[2025-10-19] MEDS: Lactated Ringers 1,000 ML 80 ML IV (12:00)
[2025-10-19 12:10] VITALS: BMI 37.4
--- NOTE | 2025-10-19 12:37 | BOWEL_PTH ---
PATIENT: Arron Chester LOC: [facility] U#:[id number] AGE/SX: 40/F ROOM: RE10/19/[address]: Miroslava Bell : 1985 BED: DIS: 10/19/2025 SPEC #: [id number] RECD: 10/19/25 12:59 STATUS: KEVIN RE #: [id number] DANTE: 10/19/25 12:[address]: Miroslava Bell DEPT: Surgical Specimen RECD BY: Fariha Valdivia ENTERED: 10/19/25 13:00 SP TYPE: Bowel OTHR DR: Kita Clark Tissues: 1 - BIOPSY BOWEL 2 - STOMACH BIOPSY 3 - ESOPHAGUS BIOPSY Procedures: GROSS AND MICRO LEVEL 4 Comments: [id number]
[2025-10-19 12:50] VITALS: BP 121/85; PULSE 89; RESP 16; TEMP 36.5; O2SAT 99
--- NOTE | 2025-10-19 12:54 | W.PM.ENDDOP ---
Date of service: 10/19/25 Time of Service: 13:34 Endoscopy Report DATE OF PROCEDURE: 10/19/25 PRE-OP DIAGNOSIS: Reflux POST-OP DIAGNOSIS: same PROCEDURE: Upper endoscopy with biopsy SURGEON: Miroslava Bell ANESTHESIA TYPE: General:No Airway ESTIMATED BLOOD LOSS: 0 PATHOLOGY: other (Duodenum, antrum, GE junction ) COMPLICATIONS: None DISPOSITION: PACU INDICATIONS: Patient is a 40 yo female who was evaluated in clinic given ongoing abdominal pain and reflux. An upper endoscopy was discussed with her and consent was obtained prior to the procedure. FINDINGS: Evidence of mild gastritis. Cold forcep biopsy of duodenum, antrum and GE junction. PROCEDURE DESCRIPTION: After adequate sedation, the upper endoscope was inserted and advanced in the duodenum under direct visualization. The scope was withdrawn and the mucosa inspected. The duodenum appeared normal and a cold forcep biopsy was obtained. The stomach had evidence of mild gastritis with no evidence of ulcerations or erosions. ?The antrum area was biopsied and also checked for H. pylori.? Retroflexion view in the stomach was normal. At the lower esophagus Z line area, this was inspected and noted to be normal. No evidence of [place]?s esophagus or strictures. A cold forcep biopsy of the GE junction was obtained. Otherwise, the esophagus was normal. The scope was completely withdrawn from the patient. The patient tolerated the procedure well with no immediate complications.
--- NOTE | 2025-10-19 12:55 | W.PM.DSUDISC ---
Date of service: 10/19/25 Discharge Plan Disposition Patient Disposition: Home Condition: Good Discharge Details Reason For Visit: Reflux Attending Provider: Miroslava Bell Primary Care Provider: Kita Clark Recommendations for Follow Up Recommended tests to be ordered by follow up provider: Follow up pathology Home Meds and New Rx's Prescriptions: Continued mecobalamin (vitamin B12) 1,000 mcg tablet,chewable 1,000 mcg PO DAILY cholecalciferol (vitamin D3) 25 mcg (1,000 unit) capsule 25 mcg PO DAILY pantoprazole [Protonix] 40 mg tablet,delayed release (DR/EC) 40 mg PO DAILY Qty: 30 6RF spironolactone 25 mg tablet 50 mg PO QAM Patient Comments: TAKE ONE TABLET BY MOUTH EVERY DAY phentermine 15 mg capsule 15 mg PO DAILY Rx Instructions: must administer 2 hours after breakfast eletriptan 40 mg tablet See Rx Instructions PO .COMPLEX Rx Instructions: take 1 tab at onset of headache; if no relief, may repeat 1 tab after at least 2 hrs; max = 2 tabs/24 hrs PO phenazopyridine [Pyridium] 200 mg tablet 200 mg PO TID PRNQty: 5 0RF Discharge Instructions Additional Instructions: Your upper endoscopy went well today. You did have some mild gastritis but otherwise normal findings. Some routine biopsies were performed. When these biopsy results we will contact you regarding them. If you have questions or concerns please contact the general surgery office. 1. Do not drive, drink alcohol, operate machinery, make critical decisions, or do activities that require coordination or balance for 24 hours. 2. Go directly to the emergency room if you notice any of the following: Develop chills (warm to touch), or if you have a thermometer and your temperature is above 101 Difficulty breathing or difficultly swallowing Persistent vomiting Severe abdominal pain, other than gas cramps Severe chest pain Black, tarry stools Any bleeding ? exceeding one tablespoon 3. Call your physician if the site where your intravenous was started becomes red, swollen, painful, and warm to touch. 4. Your physician has reviewed your pre-procedure medications. Please continue to take those medications as previously ordered. You will be given specific information/education regarding any changes to your medications before leaving. Stand Alone Forms: Portal Information Activity:: Activity as Tolerated Diet:: As Tolerated Discharge Orders Discharge Orders: Discharge Order (Routine); Ordered 10/19/25 Ordered By: Miroslava Bell
--- NOTE | 2025-10-19 12:59 | W.ANESPOSTOP ---
Postoperative Evaluation Date, Time and Location Date Performed: 10/19/25 Time Performed: 12:55 Patient Location: Day Surgery Unit Vital Signs Most Recent Imported Vital Signs: Most Recent Vital Signs Temp Pulse Resp BP Pulse Ox 36.5 C 89 16 121/85 99 10/19/25 12:50 10/19/25 12:50 10/19/25 12:50 10/19/25 12:50 10/19/25 12:50 Pain Score Most Recent Pain Score: Most Recent Pain Score Pain Level 0 10/19/25 12:50 Assessment Mental Status: Awake (Alert & Oriented to Patient Baseline) Airway and Respiratory Function: Patent airway with normal (patient baseline) respiratory exam Cardiovascular Function: Hemodynamically Stable Hydration Status: Adequately Hydrated Nausea & Vomiting: No Nausea or Vomiting Pain: Pt. Denies Any Pain Peripheral Nerve Block: Patient did not receive a nerve block
[2025-10-19 13:14] VITALS: BP 118/87; PULSE 69; RESP 16; TEMP 36.5; O2SAT 96
== END 2025-10-19 13:35 | disposition home or self-care (01) ==
PROVIDERS: PCP Family Medicine; Visit Provider Student in an Organized Health Care Education/Training Program
PROC: 0DJ68ZZ Inspection of Stomach, Via Natural or Artificial Opening Endoscopic (ICD-10-PCS; CPT 43235; principal; 2025-10-19 12:45)
DX: K21.9 Gastro-esophageal reflux disease without esophagitis (principal); K31.89 Other diseases of stomach and duodenum; K22.89 Other specified disease of esophagus
CPT/HCPCS: 43239; 81025; 88305; J2003; J2250; J2704